=== PATIENT | female | born 1925 | race Caucasian/White ===

== ENCOUNTER 2017-03-14 11:46 | Emergency (ER) | payer MEDICARE, OTHER ==
[~2017-03-14] VITALS: Ht 162.6 cm; Wt 88.5 kg
[~2017-03-14 11:46] MED LIST: ALPR0.5T PO; ASPI-630 PO; AZIT250T PO; CARV6.25 PO; CLOP75TA57 PO; FLUT1DIS3 IH; IPRA4AER IH; LISI-334 PO; LISI40TA PO; PARO40TA3 PO; SIMV20TA3 PO
[2017-03-14] MEDS ORDERED: ONDANSETRON PF 4 MG/2 ML VIAL. IV ONE (12:15)
[2017-03-14 12:36] LABS: BASO # 0.1 x10^3/uL (0.0-0.2); BASO % 1 % (0-3); EOS % 1 % (0-3); HEMATOCRIT 41.6 % (36.0-47.0); HEMOGLOBIN 13.9 g/dL (12.0-15.5); LYMPH # 1.3 x10^3/uL (1.0-4.8); LYMPH % 18 % (24-48); MEAN CORPUSCULAR HEMOGLOBIN 33 pg (25-35); MEAN CORPUSCULAR HGB CONC 33 g/dL (31-37); MEAN CORPUSCULAR VOLUME 98 fL (79-100); MONO % 5 % (0-9); NEUT % 75 % (31-73); PLATELET COUNT 242 x10^3/uL (140-400); RED BLOOD COUNT 4.23 x10^6/uL (3.50-5.40); RED CELL DISTRIBUTION WIDTH 13.3 % (11.5-14.5); WHITE BLOOD COUNT 6.8 x10^3/uL (4.0-11.0)
[2017-03-14 13:06] LABS: BILIRUBIN,URINE NEGATIVE (NEG); GLUCOSE,URINE NEGATIVE (NEG); NITRITE,URINE NEGATIVE (NEG); PH,URINE 7.5; PROTEIN,URINE NEGATIVE (NEG-TRACE); UROBILINOGEN,URINE 0.2 mg/dL (0.2 mg/dL)
[2017-03-14 13:24] LABS: BACTERIA,URINE 0 /HPF (0-FEW); SQUAMOUS EPITHELIAL CELL,UR FEW /LPF; WBC,URINE 0 /HPF (0-4)
[2017-03-14 13:26] LABS: CALCIUM 9.2 mg/dL (8.5-10.1); CREATININE 0.7 mg/dL (0.6-1.0); GFR 78.8; POTASSIUM 3.7 mmol/L (3.5-5.1)
[2017-03-14 13:28] LABS: ALBUMIN 3.9 g/dL (3.4-5.0); ALBUMIN/GLOBULIN RATIO 1.1 (1.0-1.7); TOTAL BILIRUBIN 0.6 mg/dL (0.2-1.0); TOTAL PROTEIN 7.6 g/dL (6.4-8.2)
[2017-03-14 13:38] LABS: CKMB MASS 1.5 ng/mL (0.0-3.6); CREATINE KINASE 45 U/L (26-192)
--- NOTE | 2017-03-14 13:59 | RAD ---
CT study of the abdomen and pelvis without contrast Clinical indications: Nausea and vomiting since yesterday. Generalized abdominal pain. Technique: Noncontrast helical CT scanning of the abdomen and pelvis was performed. Without contrast, the sensitivity to detect organ pathology and GI tract pathology is decreased. PQRS Compliance Statement: One or more of the following individualized dose reduction techniques were utilized for this examination: 1. Automated exposure control 2. Adjustment of the mA and/or kV according to patient size 3. Use of iterative reconstruction technique Comparison: None available. Findings: The liver and spleen and pancreas are homogeneous in appearance on this noncontrast study. The gallbladder is surgically absent. No adrenal mass is evident. No hydronephrosis or hydroureter or urinary tract stone is seen. No focal aneurysmal dilatation of the abdominal aorta is seen. No enlarged abdominal or pelvic lymphadenopathy is seen. The appendix is not visualized. No obstructive bowel pattern is seen. Sigmoid diverticulosis is seen without diverticulitis. No mesenteric inflammatory change or free fluid or free air is seen. The uterus is surgically absent. Urinary bladder is not distended. There is a mild compression fracture of T11 of indeterminate age. No osteolytic process is seen. No lung base infiltrate is seen. IMPRESSION: No acute abnormality of the abdomen or pelvis is evident. Mild compression fracture of T11 of indeterminate age. Calcified atheromatous disease of the coronary arteries. Cardiomegaly.
[2017-03-14 14:30] VITALS: BP 182/89
[2017-03-14] MEDS ORDERED: ONDA4TAB10 PO (14:40)
--- NOTE | 2017-03-14 14:40 | PHYS DOC ---
Past Medical History Past Medical History: Anxiety, Arthritis, Bronchitis, COPD, Diabetes-Type II, High Cholesterol, Hypertension Past Surgical History: Cholecystectomy, Hysterectomy Alcohol Use: None Drug Use: None Adult General Chief Complaint Chief Complaint: DIZZY/LIGHT HEADED HPI HPI Patient is a 89 year old female brought to the ED by her daughter with the complaint of nausea and vomiting with dizziness. The symptoms began yesterday. She had some nausea and vomiting. Each time she vomits she will have a "hot sweat". She states when she vomits she becomes dizzy. It does not sound like she has vertigo which makes her vomit, it sounds like that she vomits and gets dizzy in a nonspecific way. Patient felt better this morning and ate some cereal but then she vomited it and has some more vomiting since. Patient stated she had a checkup within the last month with lead work and that was all fine. She feels like she might be constipated, has taken a laxative for that. No diarrhea. Denies abdominal pain, denies fever. No one else at home is sick. Patient lives with her daughter. Patient status past cholecystectomy, appendectomy, hysterectomy. Review of Systems Review of Systems Constitutional: Denies fever or chills [] Eyes: Denies change in visual acuity, redness, or eye pain [] HENT: Denies nasal congestion or sore throat [] Respiratory: Denies cough or shortness of breath [] Cardiovascular: Denies chest pain GI: As in history of present illness : No urinary complaints, but states she has been urinating a lot. Musculoskeletal: Denies back pain or joint pain [] Integument: Denies rash or skin lesions [] Neurologic: Denies headache, focal weakness or sensory changes [] Current Medications Current Medications Current Medications Medications (Trade) Dose Ordered Sig/Madeleine Start Time Stop Time Status Last Admin Dose Admin Ondansetron HCl (Zofran) 4 mg 1X ONCE 03/14/17 12:15 03/14/17 12:18 DC 03/14/17 12:31 4 MG Allergies Allergies Allergies Coded Allergies Type Severity Reaction Last Updated Verified sulfamethoxazole Allergy Intermediate VERTIGO 07/25/15 Yes trimethoprim Allergy Intermediate VERTIGO 07/25/15 Yes Physical Exam Physical Exam Constitutional: Well developed, well nourished, no acute distress, non-toxic appearance. Alert, mentating normally, warm and dry. HENT: Normocephalic, atraumatic, bilateral external ears normal, nose normal. [ ] Eyes: conjunctiva normal, no discharge. [] Neck: Normal range of motion, no stridor. [] Cardiovascular:Heart rate regular rhythm, no murmur [] Lungs & Thorax: Bilateral breath sounds clear to auscultation [] Abdomen: Soft, nondistended, no masses, no pulsatile mass, nontender to palpation Skin: Warm, dry, no erythema, no rash. [] Extremities: No tenderness, no cyanosis, no clubbing, ROM intact, no edema. [] Neurologic: Alert and oriented X 3, normal motor function, normal sensory function, no focal deficits noted. [] Current Patient Data Vital Signs Vital Signs Date Time Temp Pulse Resp B/P (MAP) Pulse Ox O2 Delivery O2 Flow Rate FiO2 03/14/17 14:30 82 182/89 (120) 92 Room Air 03/14/17 14:03 21 03/14/17 11:50 98.1 98.1 Lab Values Laboratory Tests Test 03/14/17 12:20 03/14/17 12:51 03/14/17 13:05 White Blood Count 6.8 x10^3/uL (4.0-11.0) Red Blood Count 4.23 x10^6/uL (3.50-5.40) Hemoglobin 13.9 g/dL (12.0-15.5) Hematocrit 41.6 % (36.0-47.0) Mean Corpuscular Volume 98 fL (79-100) Mean Corpuscular Hemoglobin 33 pg (25-35) Mean Corpuscular Hemoglobin Concent 33 g/dL (31-37) Red Cell Distribution Width 13.3 % (11.5-14.5) Platelet Count 242 x10^3/uL (140-400) Neutrophils (%) (Auto) 75 % (31-73) H Lymphocytes (%) (Auto) 18 % (24-48) L Monocytes (%) (Auto) 5 % (0-9) Eosinophils (%) (Auto) 1 % (0-3) Basophils (%) (Auto) 1 % (0-3) Neutrophils # (Auto) 5.1 x10^3uL (1.8-7.7) Lymphocytes # (Auto) 1.3 x10^3/uL (1.0-4.8) Monocytes # (Auto) 0.3 x10^3/uL (0.0-1.1) Eosinophils # (Auto) 0.1 x10^3/uL (0.0-0.7) Basophils # (Auto) 0.1 x10^3/uL (0.0-0.2) Troponin I Quantitative < 0.017 ng/mL (0.000-0.055) Urine Collection Type Unknown Urine Color Yellow Urine Clarity Clear Urine pH 7.5 Urine Specific [place] 1.010 Urine Protein Negative mg/dL (NEG-TRACE) Urine Glucose (UA) Negative mg/dL (NEG) Urine Ketones (Stick) Negative mg/dL (NEG) Urine Blood Trace (NEG) Urine Nitrite Negative (NEG) Urine Bilirubin Negative (NEG) Urine Urobilinogen Dipstick 0.2 mg/dL (0.2 mg/dL) Urine Leukocyte Esterase Negative (NEG) Urine RBC 6-10 /HPF (0-2) Urine WBC 0 /HPF (0-4) Urine Squamous Epithelial Cells Few /LPF Urine Amorphous Sediment Present /HPF Urine Bacteria 0 /HPF (0-FEW) Sodium Level 141 mmol/L (136-145) Potassium Level 3.7 mmol/L (3.5-5.1) Chloride Level 103 mmol/L (98-107) Carbon Dioxide Level 33 mmol/L (21-32) H Anion Gap 5 (6-14) L Blood Urea Nitrogen 17 mg/dL (7-20) Creatinine 0.7 mg/dL (0.6-1.0) Estimated GFR (Cockcroft-Gault) 78.8 BUN/Creatinine Ratio 24 (6-20) H Glucose Level 117 mg/dL (70-99) H Calcium Level 9.2 mg/dL (8.5-10.1) Total Bilirubin 0.6 mg/dL (0.2-1.0) Aspartate Amino Transferase (AST) 17 U/L (15-37) Alanine Aminotransferase (ALT) 20 U/L (14-59) Alkaline Phosphatase 89 U/L (46-116) Creatine Kinase 45 U/L (26-192) Creatine Kinase MB (Mass) 1.5 ng/mL (0.0-3.6) Creatine Kinase MB Relative Index % (0-4) Total Protein 7.6 g/dL (6.4-8.2) Albumin 3.9 g/dL (3.4-5.0) Albumin/Globulin Ratio 1.1 (1.0-1.7) Lipase 152 U/L (73-393) Laboratory Tests 03/14/17 12:20 Laboratory Tests 03/14/17 13:05 EKG EKG [] Radiology/Procedures Radiology/Procedures [] Course & Med Decision Making Course & Med Decision Making Pertinent Labs and Imaging studies reviewed. (See chart for details) 89-year-old female presents with some nausea and vomiting over the last couple of days. Her abdomen exam is benign. I advised her we will check some labs, give her some nausea medicine, check a CT scan. Patient rested comfortably in the ED. She did not have any further vomiting in the ED. Labs unrevealing, CT scan unremarkable. I discussed with the patient and her daughter their comfort level with discharge. I feel the patient is appropriate for discharge with some by mouth anti-medics and stomach rest with clear liquids for another day or 2. They're very comfortable with this plan. I encouraged her to return if she has worsening of symptoms. [] Dragon Disclaimer Dragon Disclaimer This electronic medical record was generated, in whole or in part, using a voice recognition dictation system. Departure Departure Impression: Primary Impression: Nausea and vomiting Disposition: 01 HOME, SELF-CARE Condition: STABLE Referrals: TIFFANIE DOYLE (PCP) Patient Instructions: Viral Gastroenteritis, [id number] Additional Instructions: As we discussed, there was no serious cause identified for your symptoms. It may be a stomach virus. Rest your stomach for the next couple of days with Jell- O and chicken noodle soup. If you get worse, return to ER right away. Scripts Ondansetron (ZOFRAN ODT) 4 Mg Tab.rapdis 4 MG PO Q6-8HRS Y for NAUSEA/VOMITING for 5 Days, #10 TAB Prov: RASHI CHERRY MD 03/14/17 RASHI CHERRY MD Mar 14, 2017 14:40
== END 2017-03-14 14:55 | disposition home or self-care (01) ==
LOC: ER 11:46
DX: R11.2 Nausea with vomiting, unspecified (principal); R42 Dizziness and giddiness; E11.9 Type 2 diabetes mellitus without complications; E78.00 Pure hypercholesterolemia, unspecified; F41.9 Anxiety disorder, unspecified; I10 Essential (primary) hypertension; J44.9 Chronic obstructive pulmonary disease, unspecified; M19.90 Unspecified osteoarthritis, unspecified site; Z90.49 Acquired absence of other specified parts of digestive tract; Z90.710 Acquired absence of both cervix and uterus; Z88.2 Allergy status to sulfonamides; Z88.8 Allergy status to other drugs, medicaments and biological substances
CPT/HCPCS: 36415; 74176; 80053; 81001; 82553; 83690; 84484; 85027; 96374; 99285; J2405

== ENCOUNTER 2017-05-20 13:39 | Inpatient (IN) | payer OTHER ==
[~2017-05-20] VITALS: Ht 162.6 cm; Wt 98.5 kg
[~2017-05-20 13:39] MED LIST changes: +AMLO10TA2 PO; +CHOL100013 PO; +FURO20TA3 PO; +ONDA4TAB10 PO; +POTASSIUM CHLO10 MEQ PO; +PRED-220 PO
--- NOTE | 2017-05-20 14:10 | EKG ---
[facility] [address] [place] [address] Test Date: 2017-05-20 Test Time: 13:45:29 Pat Name: RUSLAN MARCIAL Department: Room: Gender: F Assurance Officer: : 1925 Requested By: MONROE PIERCE Order Number: [id number] Reading MD: Torrie Suarez Measurements Intervals [place] Rate: 90 P: 15 ID: [id number] QRS: -22 QRSD: 98 T: 17 QT: 378 QTc: 467 Interpretive Statements SINUS RHYTHM LEFTWARD AXIS QRS(T) CONTOUR ABNORMALITY CONSISTENT WITH INFERIOR INFARCT PROBABLY OLD ABNORMAL ECG Electronically Signed On 05-24-2017 9:18:51 CDT by Torrie Suarez
[2017-05-20 14:25] LABS: BASO % 0 % (0-3); EOS % 0 % (0-3); HEMATOCRIT 44.1 % (36.0-47.0); HEMOGLOBIN 14.7 g/dL (12.0-15.5); LYMPH # 0.7 x10^3/uL (1.0-4.8); LYMPH % 7 % (24-48); MEAN CORPUSCULAR HEMOGLOBIN 33 pg (25-35); MEAN CORPUSCULAR HGB CONC 33 g/dL (31-37); MEAN CORPUSCULAR VOLUME 98 fL (79-100); MONO % 2 % (0-9); NEUT % 91 % (31-73); PLATELET COUNT 336 x10^3/uL (140-400); RED BLOOD COUNT 4.49 x10^6/uL (3.50-5.40); RED CELL DISTRIBUTION WIDTH 13.6 % (11.5-14.5); WHITE BLOOD COUNT 10.7 x10^3/uL (4.0-11.0)
[2017-05-20] MEDS ORDERED: ONDANSETRON PF 4 MG/2 ML VIAL. IV ONE (14:30)
[2017-05-20 14:37] LABS: BILIRUBIN,URINE NEGATIVE (NEG); GLUCOSE,URINE NEGATIVE (NEG); NITRITE,URINE NEGATIVE (NEG); PH,URINE 7.5; PROTEIN,URINE NEGATIVE (NEG-TRACE); UROBILINOGEN,URINE 0.2 mg/dL (0.2 mg/dL)
[2017-05-20] MEDS ORDERED: CONTRAST GIVEN MC PRN (14:45)
[2017-05-20] MEDS ORDERED: IOHEXOL 300 MG/ML 75 ML VIAL IV ONE (14:45)
[2017-05-20 14:48] LABS: BACTERIA,URINE FEW /HPF (0-FEW); RBC,URINE 0 /HPF (0-2); SQUAMOUS EPITHELIAL CELL,UR FEW /LPF; WBC,URINE 0 /HPF (0-4)
[2017-05-20] MEDS ORDERED: IOHEXOL 300 MG/ML 75 ML VIAL ONE (15:06)
[2017-05-20 15:25] LABS: CALCIUM 9.4 mg/dL (8.5-10.1); CREATININE 0.8 mg/dL (0.6-1.0); GFR 67.5; POTASSIUM 4.2 mmol/L (3.5-5.1)
[2017-05-20 15:31] LABS: ALBUMIN/GLOBULIN RATIO 1.1 (1.0-1.7); TOTAL BILIRUBIN 0.5 mg/dL (0.2-1.0); TOTAL PROTEIN 7.8 g/dL (6.4-8.2)
[2017-05-20] MEDS ORDERED: IV NORMAL SALINE 500ML BAG 500 ML IV ONE (15:45)
--- NOTE | 2017-05-20 15:47 | ED.ADGEN ---
Past Medical History Past Medical History: Anxiety, Arthritis, Bronchitis, COPD, Diabetes-Type II, High Cholesterol, Hypertension Past Surgical History: Cholecystectomy, Hysterectomy Alcohol Use: None Drug Use: None Adult General Chief Complaint Chief Complaint: NAUSEA/VOMITING/DIARRHA HPI HPI Patient is a 89 year old woman, history of type 2 diabetes mellitus, hypertension, hyperlipidemia, who presents to the emergency department with multiple complaints. Patient states that she been experiencing dry heaves this morning, along with some cramping abdominal pain, and was noted to have elevated blood pressures that" plummeted", when they're measured at home by her family, she is complaining of dizziness and lightheadedness as well. Denies any vomiting, states only "dry heaves", has been experiencing diarrhea, states that she was in the hospital last week with "similar things", was treated with Lasix previously, was taken off her Lasix. She states "my kidneys and my bowels". She denies any recent travel or surgery, states that she has had increased swelling of her feet, denies any syncope, states that she feels as though the room is "spinning around me", which is worse with motion but is present at rest as well. States that she is still feeling well this time. Patient has family at bedside. No chest pain, is complaining of her typical unchanged shortness of breath. Patient is a limited historian. Review of Systems Review of Systems Constitutional: Denies fever or chills. [] Eyes: Denies change in visual acuity. [] HENT: Denies nasal congestion or sore throat. [] Respiratory: Denies cough or shortness of breath. [] Cardiovascular: Denies chest pain or edema. [] GI: Complaining of cramping abdominal pain with dry heaves this morning, no vomiting, bloody stools, has been experiencing diarrhea. [] : Denies dysuria. [] Musculoskeletal: Denies back pain or joint pain. [] Integument: Denies rash. [] Neurologic: Denies headache, focal weakness or sensory changes. Complaining of lightheadedness and dizziness.[] Endocrine: Denies polyuria or polydipsia. [] Lymphatic: Denies swollen glands. [] Psychiatric: Denies depression or anxiety. [] Current Medications Current Medications Current Medications Medications (Trade) Dose Ordered Sig/Madeleine Start Time Stop Time Status Last Admin Dose Admin Acetaminophen (Tylenol) 650 mg PRN Q6HRS PRN 05/20/17 17:00 Al Hydroxide/Mg Hydroxide (Mylanta Plus Xs) 30 ml PRN Q3HRS PRN 05/20/17 17:00 Alprazolam (Xanax) 0.5 mg PRN Q8HRS PRN 05/20/17 17:00 Bisacodyl (Dulcolax Supp) 10 mg PRN DAILY PRN 05/20/17 17:00 Calcium Carbonate/ Glycine (Tums) 500 mg PRN Q3HRS PRN 05/20/17 17:00 Carvedilol (Coreg) 6.25 mg BIDWMEALS 05/20/17 17:00 Furosemide (Lasix) 20 mg PRN DAILY PRN 05/20/17 17:00 Ibuprofen (Motrin) 400 mg PRN Q6HRS PRN 05/20/17 17:00 Info (Do NOT chart on this entry -- for MONITORING) 1 each PRN DAILY PRN 05/20/17 14:45 05/22/17 14:44 Iohexol (Omnipaque 300 Mg/ml) 75 ml STK-MED ONCE 05/20/17 15:06 05/20/17 15:07 DC Ketorolac Tromethamine (Toradol) 15 mg PRN Q6HRS PRN 05/20/17 17:00 05/25/17 16:59 Lactulose 20 gm PRN Q12HR PRN 05/20/17 17:00 Magnesium Hydroxide (Milk Of Magnesia) 2,400 mg PRN Q12HR PRN 05/20/17 17:00 Morphine Sulfate 2 mg PRN Q2HR PRN 05/20/17 17:00 Non-Formulary Medication 2 inh QID 05/20/17 17:00 05/20/17 18:10 DC Ondansetron HCl (Zofran Odt) 4 mg PRN TID PRN 05/20/17 17:00 Ondansetron HCl (Zofran) 4 mg PRN Q6HRS PRN 05/20/17 17:00 Oxycodone HCl (Roxicodone) 5 mg PRN Q3HRS PRN 05/20/17 17:00 Prochlorperazine (Compazine) 25 mg PRN Q12HR PRN 05/20/17 17:00 Prochlorperazine Edisylate (Compazine) 10 mg PRN Q6HRS PRN 05/20/17 17:00 Sodium Chloride 500 ml @ 500 mls/hr 1X ONCE 05/20/17 15:45 05/20/17 16:44 DC 05/20/17 15:52 500 MLS/HR Zolpidem Tartrate (Ambien) 5 mg PRN QHS PRN 05/20/17 17:00 Allergies Allergies Allergies Coded Allergies Type Severity Reaction Last Updated Verified sulfamethoxazole Allergy Intermediate VERTIGO 07/25/15 Yes trimethoprim Allergy Intermediate VERTIGO 07/25/15 Yes Physical Exam Physical Exam Constitutional: Well developed, well nourished, no acute distress, non-toxic appearance. [] HENT: Normocephalic, atraumatic, bilateral external ears normal, oropharynx moist, no oral exudates, nose normal. [] Eyes: PERRLA, EOMI, conjunctiva normal, no discharge. [] Neck: Normal range of motion, no tenderness, supple, no stridor. [] Cardiovascular:Heart rate regular rhythm, no murmur, S1, S2, no rubs or gallops. Soft heart sounds. [] Lungs & Thorax: Bilateral breath sounds clear to auscultation, no wheezing, rhonchi, rales. No chest or crepitus or tenderness. Anybody to NELIDA destroyed my connection to the transfer line is both eyes did [] Abdomen: Bowel sounds normal, soft, tenderness to palpation throughout the abdomen with mild distention, no masses, no pulsatile masses. [] Skin: Warm, dry, no erythema, no rash. [] Back: No tenderness, no CVA tenderness. [] Extremities: No tenderness, no cyanosis, no clubbing, ROM intact, no edema. [] Neurologic: Alert and oriented X 3, normal motor function, normal sensory function, no focal deficits noted. [] Psychologic: Affect normal, judgement normal, mood normal. [] Current Patient Data Vital Signs Vital Signs Date Time Temp Pulse Resp B/P (MAP) Pulse Ox O2 Delivery O2 Flow Rate FiO2 05/20/17 13:40 98.7 93 18 135/72 (93) 96 Room Air 98.7 Lab Values Laboratory Tests Test 05/20/17 14:15 05/20/17 14:22 05/20/17 15:05 White Blood Count 10.7 x10^3/uL (4.0-11.0) Red Blood Count 4.49 x10^6/uL (3.50-5.40) Hemoglobin 14.7 g/dL (12.0-15.5) Hematocrit 44.1 % (36.0-47.0) Mean Corpuscular Volume 98 fL (79-100) Mean Corpuscular Hemoglobin 33 pg (25-35) Mean Corpuscular Hemoglobin Concent 33 g/dL (31-37) Red Cell Distribution Width 13.6 % (11.5-14.5) Platelet Count 336 x10^3/uL (140-400) Neutrophils (%) (Auto) 91 % (31-73) H Lymphocytes (%) (Auto) 7 % (24-48) L Monocytes (%) (Auto) 2 % (0-9) Eosinophils (%) (Auto) 0 % (0-3) Basophils (%) (Auto) 0 % (0-3) Neutrophils # (Auto) 9.7 x10^3uL (1.8-7.7) H Lymphocytes # (Auto) 0.7 x10^3/uL (1.0-4.8) L Monocytes # (Auto) 0.2 x10^3/uL (0.0-1.1) Eosinophils # (Auto) 0.0 x10^3/uL (0.0-0.7) Basophils # (Auto) 0.0 x10^3/uL (0.0-0.2) Segmented Neutrophils % 91 % (35-66) H Lymphocytes % 8 % (24-48) L Monocytes % 1 % (0-10) Platelet Estimate Adequate (ADEQUATE) Lactic Acid Level 2.8 mmol/L (0.4-2.0) H Urine Collection Type Void Urine Color Yellow Urine Clarity Clear Urine pH 7.5 Urine Specific [place] 1.010 Urine Protein Negative mg/dL (NEG-TRACE) Urine Glucose (UA) Negative mg/dL (NEG) Urine Ketones (Stick) Negative mg/dL (NEG) Urine Blood Negative (NEG) Urine Nitrite Negative (NEG) Urine Bilirubin Negative (NEG) Urine Urobilinogen Dipstick 0.2 mg/dL (0.2 mg/dL) Urine Leukocyte Esterase Negative (NEG) Urine RBC 0 /HPF (0-2) Urine WBC 0 /HPF (0-4) Urine Squamous Epithelial Cells Few /LPF Urine Bacteria Few /HPF (0-FEW) Urine Hyaline Casts Occasional /HPF Sodium Level 139 mmol/L (136-145) Potassium Level 4.2 mmol/L (3.5-5.1) Chloride Level 99 mmol/L (98-107) Carbon Dioxide Level 34 mmol/L (21-32) H Anion Gap 6 (6-14) Blood Urea Nitrogen 14 mg/dL (7-20) Creatinine 0.8 mg/dL (0.6-1.0) Estimated GFR (Cockcroft-Gault) 67.5 BUN/Creatinine Ratio 18 (6-20) Glucose Level 149 mg/dL (70-99) H Calcium Level 9.4 mg/dL (8.5-10.1) Total Bilirubin 0.5 mg/dL (0.2-1.0) Aspartate Amino Transferase (AST) 14 U/L (15-37) L Alanine Aminotransferase (ALT) 20 U/L (14-59) Alkaline Phosphatase 72 U/L (46-116) Troponin I Quantitative < 0.017 ng/mL (0.000-0.055) VI-Sha-C-Type Natriuretic Peptide 291 pg/mL (0-449) Total Protein 7.8 g/dL (6.4-8.2) Albumin 4.0 g/dL (3.4-5.0) Albumin/Globulin Ratio 1.1 (1.0-1.7) Lipase 138 U/L (73-393) Laboratory Tests 05/20/17 14:15 Laboratory Tests 05/20/17 15:05 EKG EKG EC: Sinus rhythm, heart rate 90 beats are minute, left axis deviation, QTC of 467, OH 158, QRS of 98, contour abnormalities in the inferior leads, abnormal ECG, does not meet STEMI criteria. As interpreted by me.[] Radiology/Procedures Radiology/Procedures [][facility] [address] [place], [place] [id number] IMAGING REPORT Signed PATIENT: RUSLAN MARCIAL ACCOUNT: [id number] : 1925 LOCATION: ER AGE: 89 SEX: F EXAM STATUS: REG ER ORD. PHYSICIAN: MONROE PIERCE DO REASON: Dizziness/Nausea PROCEDURE: CT HEAD WO CONTRAST Indication dizziness. Noncontrast images of the head were obtained. Note is made of a previous examination 07/27/2015. The study is slightly compromised by motion. No acute or significant calvarial finding is seen. The visualized paranasal sinuses appear grossly normal. There is no subdural or epidural hematoma. There is a lucency in the left thalamus similar to the previous exam likely reflecting an old insult. There is no hemorrhage. An acute finding is not seen. A significant change relative to the previous exam is not apparent. IMPRESSION: Chronic changes. No acute intracranial finding is seen. No significant change PQRS Compliance Statement: One or more of the following individualized dose reduction techniques were utilized for this examination: 1. Automated exposure control 2. Adjustment of the mA and/or kV according to patient size 3. Use of iterative reconstruction technique DICTATED and SIGNED BY: RICHARD JUAREZ MD DATE: 05/20/171615 CC: MONROE PIERCE DO; TIFFANIE DOYLE ~ Impressions: [facility] [address] [place], [place] [id number] IMAGING REPORT Signed PATIENT: RUSLAN MARCIAL ACCOUNT: [id number] : 1925 LOCATION: ER AGE: 89 SEX: F EXAM STATUS: REG ER ORD. PHYSICIAN: MONROE PIERCE DO REASON: abd pain PROCEDURE: CT ABD PELV W/ IV CONTRST ONLY CT of the abdomen and pelvis with contrast, 05/20/2017: History: Nausea, dizziness, diarrhea Multidetector CT imaging was performed following an IV bolus injection of iodinated contrast material. No oral contrast material was administered for this study. Comparison is made to a study from 03/14/2017. Moderate coronary artery calcifications are present. The gallbladder is surgically absent. No hepatic abnormality is seen. The common bile duct is mildly enlarged, compatible with the postcholecystectomy state. No pancreatic abnormality is detected. The spleen is of normal size. There is mild bilateral renal cortical scarring. A small cyst is noted in the upper pole the left kidney. The kidneys show no evidence of obstruction. There is moderate calcific plaquing of the aorta and its branches. No abdominal or pelvic adenopathy is seen. The uterus is surgically absent. A couple of small colonic diverticula are noted. There is no evidence of pericolic inflammation. The bowel loops are not dilated. No appendix is visualized. A small hiatal hernia is noted. No free fluid or free air is evident in the abdomen or pelvis. Moderate multilevel degenerative changes are present in the spine. There is a mild unchanged vertebral compression deformity at T11. IMPRESSION: 1. Miscellaneous chronic findings as described above. 2. No acute abdominal or pelvic abnormality is detected. PQRS Compliance Statement: One or more of the following individualized dose reduction techniques were utilized for this examination: 1. Automated exposure control 2. Adjustment of the mA and/or kV according to patient size 3. Use of iterative reconstruction technique DICTATED and SIGNED BY: TENZIN PRIETO MD DATE: 05/20/17 5689 CC: MONROE PIERCE DO; TIFFANIE DOYLE ~ Course & Med Decision Making Course & Med Decision Making Pertinent Labs and Imaging studies reviewed. (See chart for details) Patient with multiple, vague complaints. In sinus rhythm on the monitor, blood pressures between 150s to 170s over 70s. She is stating that she still feels as if the room is spinning around her. CT of the head did not reveal any findings, CT of abdomen and pelvis revealed chronic changes but no acute findings. However , patient's lactic was elevated at 2.8. Patient did receive IV fluids in the emergency department, I did review these findings with the patient, there is no source of infection, no evidence of obstruction or other source for the patient' s symptoms for a lactic acidosis, which will require further monitoring and evaluation, the patient is agreeable for admission to the hospital for continued monitoring and repeat laboratory studies. Findings as above discussed with Dr. Pepper of internal medicine, patient accepted to her service as a full admission to the medical telemetry floor, for continued monitoring and evaluation as stated. Patient remained stable and comfortable during her ED course, transfer to the floor without issue. Dragon Disclaimer Dragon Disclaimer This electronic medical record was generated, in whole or in part, using a voice recognition dictation system. Departure Impression: Primary Impression: Abdominal pain Additional Impressions: Lactic acidosis Dizziness Disposition: 09 ADMITTED INPATIENT Admitting Physician: Amina Pepper Condition: STABLE Problem Qualifiers MONROE PIERCE DO May 20, 2017 15:47
--- NOTE | 2017-05-20 16:22 | RAD ---
Indication dizziness. Noncontrast images of the head were obtained. Note is made of a previous examination 07/27/2015. The study is slightly compromised by motion. No acute or significant calvarial finding is seen. The visualized paranasal sinuses appear grossly normal. There is no subdural or epidural hematoma. There is a lucency in the left thalamus similar to the previous exam likely reflecting an old insult. There is no hemorrhage. An acute finding is not seen. A significant change relative to the previous exam is not apparent. IMPRESSION: Chronic changes. No acute intracranial finding is seen. No significant change PQRS Compliance Statement: One or more of the following individualized dose reduction techniques were utilized for this examination: 1. Automated exposure control 2. Adjustment of the mA and/or kV according to patient size 3. Use of iterative reconstruction technique
--- NOTE | 2017-05-20 16:36 | RAD ---
CT of the abdomen and pelvis with contrast, 05/20/2017: History: Nausea, dizziness, diarrhea Multidetector CT imaging was performed following an IV bolus injection of iodinated contrast material. No oral contrast material was administered for this study. Comparison is made to a study from 03/14/2017. Moderate coronary artery calcifications are present. The gallbladder is surgically absent. No hepatic abnormality is seen. The common bile duct is mildly enlarged, compatible with the postcholecystectomy state. No pancreatic abnormality is detected. The spleen is of normal size. There is mild bilateral renal cortical scarring. A small cyst is noted in the upper pole the left kidney. The kidneys show no evidence of obstruction. There is moderate calcific plaquing of the aorta and its branches. No abdominal or pelvic adenopathy is seen. The uterus is surgically absent. A couple of small colonic diverticula are noted. There is no evidence of pericolic inflammation. The bowel loops are not dilated. No appendix is visualized. A small hiatal hernia is noted. No free fluid or free air is evident in the abdomen or pelvis. Moderate multilevel degenerative changes are present in the spine. There is a mild unchanged vertebral compression deformity at T11. IMPRESSION: 1. Miscellaneous chronic findings as described above. 2. No acute abdominal or pelvic abnormality is detected. PQRS Compliance Statement: One or more of the following individualized dose reduction techniques were utilized for this examination: 1. Automated exposure control 2. Adjustment of the mA and/or kV according to patient size 3. Use of iterative reconstruction technique
[2017-05-20 16:47] LABS: PLT ESTIMATE ADEQUATE (ADEQUATE)
[2017-05-20] MEDS ORDERED: FUROSEMIDE 20 MG TABLET PO PRN (17:00)
[2017-05-20] MEDS ORDERED: PROCHLORPERAZINE 10 MG/2 ML VIAL. IV PRN (17:00)
[2017-05-20] MEDS ORDERED: ONDANSETRON ODT 4 MG TAB.RAPDIS. PO PRN (17:00)
[2017-05-20] MEDS ORDERED: NON FORMULARY ITEM (Ipratropium/Albuterol Sulfate (Combivent Respimat Inhal) 2 INH) IH SCH ×2 (17:00)
[2017-05-20] MEDS ORDERED: PROCHLORPERAZINE 25 MG SUPP.RECT. PR PRN (17:00)
[2017-05-20] MEDS ORDERED: MAG HYDROX/ALUMINUM HYD/SIMETH 30 ML ORAL.SUSP PO PRN (17:00)
[2017-05-20] MEDS ORDERED: BISACODYL 10 MG SUPP.RECT. PR PRN (17:00)
[2017-05-20] MEDS ORDERED: MORPHINE SULFATE 2 MG/ML DISP.SYRIN. IV PRN (17:00)
[2017-05-20] MEDS ORDERED: CALCIUM CARBONATE 500 MG TAB.CHEW PO PRN (17:00)
[2017-05-20] MEDS ORDERED: KETOROLAC 15 MG/ML VIAL. IV PRN (17:00)
[2017-05-20] MEDS ORDERED: LACTULOSE 20 GM/30 ML SOLUTION. PO PRN (17:00)
[2017-05-20] MEDS ORDERED: ACETAMINOPHEN 325 MG TABLET. PO PRN (17:00)
[2017-05-20] MEDS ORDERED: IBUPROFEN 400 MG TABLET. PO PRN (17:00)
[2017-05-20] MEDS ORDERED: MAGNESIUM HYDROXIDE 2,400 MG/30 ML ORAL.SUSP. PO PRN (17:00)
[2017-05-20] MEDS ORDERED: cloNIDine HCL 0.1 MG TABLET PO PRN (17:30)
--- NOTE | 2017-05-20 17:33 | PDOC1 ---
History and Physical Date of Admission Date of Admission DATE: 05/20/17 TIME: 17:22 Identification/Chief Complaint Chief Complaint nausea abd pain Problems: Source Source: Caregiver, Chart review, Patient History of Present Illness History of Present Illness 89 y,o female, lives at home with family and currently has HH arranged (we recommended that since she refused SNU last admit here which was 7 days ago) HH is working well for her She comes in with a gamut of complaints (As she did before) very non specific, but most striking is the dry heaving, recurrent nausea that she had also the last admit, LAst admit was may 10-2016 with the ff dx: 1. NAusea, emesis abd pain likely viral AGE - resolved 2. Hypoxic respi failure POA, transient, never smoker, hx COPD - (CXR benign) - resolved 3. Exposure to second hand smoke 4, HTN, CAD, CHF low EF in 2014, DM2, GERD, - all seems to be chronic stable Dtr and son also claims high BP and low BP, was initially high, she claims dizzy , happened 30 mins after retching/dry heaving, Recently started on norvasc 10 by her cards Oscar kruger,Dtr also claims BB metoprolol was also new. SBP now 155s systolic, no sxs,. Family claims her usual BP 1teens or 120s, Then upon EMS arrival low BP, 70-80s systolic, Labs only remarkable is mildly elevated lactate at 2 plus, REcent TSH is normal. On pred 10 chronic? I can check cortisol, definitely check orthostatics, GI soft diet to ADAT. And check GET, Non diabetic but BS without a meal 180s, Dm runs in family, she claims she is "borderline diabetic". Also this time get GI consult re recurrent nausea CTs can: IMPRESSION: 1. Miscellaneous chronic findings as described above. 2. No acute abdominal or pelvic abnormality is detected. Past Medical History Cardiovascular: CAD, HTN, Hyperlipidemia, Valve insufficiency, Other Pulmonary: Asthma, COPD, Other CENTRAL NERVOUS SYSTEM: TIA GI: No pertinent hx Heme/Onc: No pertinent hx Psych: Anxiety Musculoskeletal: Osteoarthritis, Other Rheumatologic: No pertinent hx Infectious disease: No pertinent hx Renal/: UTI, Other Endocrine: Diabetes, Hypothyroidism Past Surgical History Past Surgical History: Cholecystectomy, Cataract Removal, Hysterectomy Family History Family History: High Cholestrol, Hypertension Social History Smoke: No ALCOHOL: none Drugs: None Current Medications Current Medications Current Medications Ondansetron HCl (Zofran) 4 mg 1X ONCE IV Last administered on 05/20/17t 14:45; Start 05/20/17 at 14:30; Stop 05/20/17 at 14:31; Status DC Iohexol (Omnipaque 300 Mg/ml) 75 ml 1X ONCE IV ; Start 05/20/17 at 14:45; Stop 05/20/17 at 14:46; Status DC Info (Do NOT chart on this entry -- for MONITORING) 1 each PRN DAILY PRN MC SEE COMMENTS; Start 05/20/17 at 14:45; Stop 05/22/17 at 14:44 Iohexol (Omnipaque 300 Mg/ml) 75 ml STK-MED ONCE .ROUTE ; Start 05/20/17 at 15:06 ; Stop 05/20/17 at 15:07; Status DC Sodium Chloride 500 ml @ 500 mls/hr 1X ONCE IV Last administered on 05/20/17t 15:52; Start 05/20/17 at 15:45; Stop 05/20/17 at 16:44; Status DC Ondansetron HCl (Zofran) 4 mg PRN Q6HRS PRN IV NAUSEA/VOMITING; Start 05/20/17 at 17:00 Prochlorperazine Edisylate (Compazine) 10 mg PRN Q6HRS PRN IV NAUSEA/VOMITING; Start 05/20/17 at 17:00 Prochlorperazine (Compazine) 25 mg PRN Q12HR PRN PA NAUSEA/VOMITING; Start 05/20 at 17:00 Al Hydroxide/Mg Hydroxide (Mylanta Plus Xs) 30 ml PRN Q3HRS PRN PO HEARTBURN / GAS; Start 05/20/17 at 17:00 Calcium Carbonate/ Glycine (Tums) 500 mg PRN Q3HRS PRN PO UPSET STOMACH; Start 05/20/17 at 17:00 Zolpidem Tartrate (Ambien) 5 mg PRN QHS PRN PO INSOMNIA, MAY REPEAT IN 1HR; Start 05/20/17 at 17:00 Oxycodone HCl (Roxicodone) 5 mg PRN Q3HRS PRN PO BREAKTHROUGH PAIN; Start at 17:00 Morphine Sulfate 2 mg PRN Q2HR PRN IV PAIN; Start 05/20/17 at 17:00 Ketorolac Tromethamine (Toradol) 15 mg PRN Q6HRS PRN IV PAIN; Start 05/20/17 at 17:00; Stop 05/25/17 at 16:59 Acetaminophen (Tylenol) 650 mg PRN Q6HRS PRN PO Headaches, Temp > 101.5F; Start 05/20/17 at 17:00 Ibuprofen (Motrin) 400 mg PRN Q6HRS PRN PO MILD PAIN; Start 05/20/17 at 17:00 Docusate Sodium (Colace) 100 mg BID PO ; Start 05/20/17 at 21:00 Magnesium Hydroxide (Milk Of Magnesia) 2,400 mg PRN Q12HR PRN PO CONSTIPATION; Start 05/20/17 at 17:00 Lactulose 20 gm PRN Q12HR PRN PO CONSTIPATION; Start 05/20/17 at 17:00 Bisacodyl (Dulcolax Supp) 10 mg PRN DAILY PRN PA CONSTIPATION; Start 05/20/17 at 17:00 Enoxaparin Sodium (Lovenox 40mg Syringe) 40 mg Q24H SQ ; Start 05/20/17 at 21:00 Alprazolam (Xanax) 0.5 mg PRN Q8HRS PRN PO ANXIETY / AGITATION; Start 05/20/17 at 17:00 Amlodipine Besylate (Norvasc) 10 mg DAILY PO ; Start 05/21/17 at 09:00; Status UNV Aspirin (Children'S Aspirin) 81 mg DAILY PO ; Start 05/21/17 at 09:00 Carvedilol (Coreg) 6.25 mg BIDWMEALS PO ; Start 05/20/17 at 17:00; Status UNV Clopidogrel Bisulfate (Plavix) 75 mg DAILY PO ; Start 05/21/17 at 09:00 Furosemide (Lasix) 20 mg PRN DAILY PRN PO leg swelling; Start 05/20/17 at 17:00 Lisinopril (Prinivil) 20 mg BID PO ; Start 05/20/17 at 21:00 Ondansetron HCl (Zofran Odt) 4 mg PRN TID PRN PO NAUSEA/VOMITING; Start at 17:00 Prednisone (Prednisone) 10 mg DAILY PO ; Start 05/21/17 at 09:00 Simvastatin (Zocor) 20 mg QHS PO ; Start 05/20/17 at 21:00 Vitamin D (Vitamin D3) 1,000 unit DAILY PO ; Start 05/21/17 at 09:00 Non-Formulary Medication 1 inh BID IH ; Start 05/20/17 at 21:00; Status UNV Non-Formulary Medication 2 inh QID IH ; Start 05/20/17 at 17:00; Status UNV Non-Formulary Medication 2 inh QID IH ; Start 05/20/17 at 17:00; Status UNV Non-Formulary Medication 1 tab HS PO ; Start 05/20/17 at 21:00; Status UNV Potassium Chloride (Klor-Con) 10 meq DAILYWBKFT PO ; Start 05/21/17 at 08:00 Clonidine HCl (Catapres) 0.1 mg PRN Q1HR PRN PO 150/100; Start 05/20/17 at 17:30 ; Status UNV Sodium Chloride 1,000 ml @ 100 mls/hr 1X ONCE IV ; Start 05/20/17 at 17:30; Stop 05/21/17 at 03:29; Status UNV Active Scripts Active Prednisone 10 Mg Tablet 10 Mg PO UD Take 3 tablets by mouth daily for 2 days, then 2 tabs daily for 4 days, then 1 tab daily for 4 days Zofran Odt (Ondansetron) 4 Mg Tab.rapdis 4 Mg PO Q6-8HRS PRN 5 Days Reported Amlodipine Besylate 10 Mg Tablet 10 Mg PO DAILY Furosemide 20 Mg Tablet 1 Tab PO PRN PRN Vitamin D (Cholecalciferol (Vitamin D3)) 1,000 Unit Capsule 1 Cap PO DAILY Potassium Chloride 10 Meq Capsule.er 10 Meq PO DAILY Advair 250-50 Diskus (Fluticasone/Salmeterol) 1 Each Disk.w.dev 1 Inh IH BID Lisinopril 20 Mg Tablet 20 Mg PO BID Coreg (Carvedilol) 6.25 Mg Tablet 6.25 Mg PO BIDWMEALS Plavix (Clopidogrel Bisulfate) 75 Mg Tablet 75 Mg PO DAILY Xanax (Alprazolam) 0.5 Mg Tablet 0.5 Mg PO PRN Q8HRS PRN Aspirin 81 Mg Tab.chew 81 Mg PO DAILY Combivent Respimat Inhal (Ipratropium/Albuterol Sulfate) 4 Gm Aer.w.adap 2 Inh IH QID Combivent Respimat Inhal (Ipratropium/Albuterol Sulfate) 4 Gm Aer.w.adap 2 Inh IH QID Simvastatin 20 Mg Tablet 1 Tab PO QHS Paroxetine Hcl 40 Mg Tablet 1 Tab PO HS Allergies Allergies: Coded Allergies: sulfamethoxazole (Verified Allergy, Intermediate, VERTIGO, 07/25/15) trimethoprim (Verified Allergy, Intermediate, VERTIGO, 07/25/15) ROS Review of System as per HPI, abd pain, dry heaving, nausea Physical Exam General: Alert, Oriented X3, Cooperative, No acute distress HEENT: PERRLA Lungs: Clear to auscultation, Normal air movement Heart: S1S2, RRR, no thrills, no rubs, no gallops, no murmurs Cardiovascular: S1, S2 Breasts: Normal, Rt breast nml w/o mass, Lt breast nml w/o mass, Nipples normal Abdomen: Normal bowel sounds, Soft, No tenderness, No hepatosplenomegaly, No masses Rectal Exam: not examined PELVIC: Nml ext genitalia Extremities: No clubbing, No cyanosis, No edema, Normal pulses, No tenderness/ swelling Skin: No rashes, No breakdown, No significant lesion Neuro: Normal gait, Normal speech, Strength at 5/5 X4 ext, Normal tone, Sensation intact, Cranial nerves 3-12 NL, Reflexes 2+ Psych/Mental Status: Mental status NL, Mood NL Vitals Vitals Vital Signs Date Time Temp Pulse Resp B/P (MAP) Pulse Ox O2 Delivery O2 Flow Rate FiO2 05/20/17 13:40 98.7 93 18 135/72 (93) 96 Room Air 98.7 Labs Labs Laboratory Tests Test 05/20/17 14:15 05/20/17 14:22 05/20/17 15:05 White Blood Count 10.7 x10^3/uL (4.0-11.0) Red Blood Count 4.49 x10^6/uL (3.50-5.40) Hemoglobin 14.7 g/dL (12.0-15.5) Hematocrit 44.1 % (36.0-47.0) Mean Corpuscular Volume 98 fL (79-100) Mean Corpuscular Hemoglobin 33 pg (25-35) Mean Corpuscular Hemoglobin Concent 33 g/dL (31-37) Red Cell Distribution Width 13.6 % (11.5-14.5) Platelet Count 336 x10^3/uL (140-400) Neutrophils (%) (Auto) 91 % (31-73) Lymphocytes (%) (Auto) 7 % (24-48) Monocytes (%) (Auto) 2 % (0-9) Eosinophils (%) (Auto) 0 % (0-3) Basophils (%) (Auto) 0 % (0-3) Neutrophils # (Auto) 9.7 x10^3uL (1.8-7.7) Lymphocytes # (Auto) 0.7 x10^3/uL (1.0-4.8) Monocytes # (Auto) 0.2 x10^3/uL (0.0-1.1) Eosinophils # (Auto) 0.0 x10^3/uL (0.0-0.7) Basophils # (Auto) 0.0 x10^3/uL (0.0-0.2) Segmented Neutrophils % 91 % (35-66) Lymphocytes % 8 % (24-48) Monocytes % 1 % (0-10) Platelet Estimate Adequate (ADEQUATE) Lactic Acid Level 2.8 mmol/L (0.4-2.0) Urine Collection Type Void Urine Color Yellow Urine Clarity Clear Urine pH 7.5 Urine Specific [place] 1.010 Urine Protein Negative mg/dL (NEG-TRACE) Urine Glucose (UA) Negative mg/dL (NEG) Urine Ketones (Stick) Negative mg/dL (NEG) Urine Blood Negative (NEG) Urine Nitrite Negative (NEG) Urine Bilirubin Negative (NEG) Urine Urobilinogen Dipstick 0.2 mg/dL (0.2 mg/dL) Urine Leukocyte Esterase Negative (NEG) Urine RBC 0 /HPF (0-2) Urine WBC 0 /HPF (0-4) Urine Squamous Epithelial Cells Few /LPF Urine Bacteria Few /HPF (0-FEW) Urine Hyaline Casts Occasional /HPF Sodium Level 139 mmol/L (136-145) Potassium Level 4.2 mmol/L (3.5-5.1) Chloride Level 99 mmol/L (98-107) Carbon Dioxide Level 34 mmol/L (21-32) Anion Gap 6 (6-14) Blood Urea Nitrogen 14 mg/dL (7-20) Creatinine 0.8 mg/dL (0.6-1.0) Estimated GFR (Cockcroft-Gault) 67.5 BUN/Creatinine Ratio 18 (6-20) Glucose Level 149 mg/dL (70-99) Calcium Level 9.4 mg/dL (8.5-10.1) Total Bilirubin 0.5 mg/dL (0.2-1.0) Aspartate Amino Transf (AST/SGOT) 14 U/L (15-37) Alanine Aminotransferase (ALT/SGPT) 20 U/L (14-59) Alkaline Phosphatase 72 U/L (46-116) Troponin I Quantitative < 0.017 ng/mL (0.000-0.055) EO-Nde-T-Type Natriuretic Peptide 291 pg/mL (0-449) Total Protein 7.8 g/dL (6.4-8.2) Albumin 4.0 g/dL (3.4-5.0) Albumin/Globulin Ratio 1.1 (1.0-1.7) Lipase 138 U/L (73-393) Laboratory Tests Test 05/20/17 14:15 05/20/17 14:22 05/20/17 15:05 White Blood Count 10.7 x10^3/uL (4.0-11.0) Red Blood Count 4.49 x10^6/uL (3.50-5.40) Hemoglobin 14.7 g/dL (12.0-15.5) Hematocrit 44.1 % (36.0-47.0) Mean Corpuscular Volume 98 fL (79-100) Mean Corpuscular Hemoglobin 33 pg (25-35) Mean Corpuscular Hemoglobin Concent 33 g/dL (31-37) Red Cell Distribution Width 13.6 % (11.5-14.5) Platelet Count 336 x10^3/uL (140-400) Neutrophils (%) (Auto) 91 % (31-73) Lymphocytes (%) (Auto) 7 % (24-48) Monocytes (%) (Auto) 2 % (0-9) Eosinophils (%) (Auto) 0 % (0-3) Basophils (%) (Auto) 0 % (0-3) Neutrophils # (Auto) 9.7 x10^3uL (1.8-7.7) Lymphocytes # (Auto) 0.7 x10^3/uL (1.0-4.8) Monocytes # (Auto) 0.2 x10^3/uL (0.0-1.1) Eosinophils # (Auto) 0.0 x10^3/uL (0.0-0.7) Basophils # (Auto) 0.0 x10^3/uL (0.0-0.2) Segmented Neutrophils % 91 % (35-66) Lymphocytes % 8 % (24-48) Monocytes % 1 % (0-10) Platelet Estimate Adequate (ADEQUATE) Lactic Acid Level 2.8 mmol/L (0.4-2.0) Urine Collection Type Void Urine Color Yellow Urine Clarity Clear Urine pH 7.5 Urine Specific [place] 1.010 Urine Protein Negative mg/dL (NEG-TRACE) Urine Glucose (UA) Negative mg/dL (NEG) Urine Ketones (Stick) Negative mg/dL (NEG) Urine Blood Negative (NEG) Urine Nitrite Negative (NEG) Urine Bilirubin Negative (NEG) Urine Urobilinogen Dipstick 0.2 mg/dL (0.2 mg/dL) Urine Leukocyte Esterase Negative (NEG) Urine RBC 0 /HPF (0-2) Urine WBC 0 /HPF (0-4) Urine Squamous Epithelial Cells Few /LPF Urine Bacteria Few /HPF (0-FEW) Urine Hyaline Casts Occasional /HPF Sodium Level 139 mmol/L (136-145) Potassium Level 4.2 mmol/L (3.5-5.1) Chloride Level 99 mmol/L (98-107) Carbon Dioxide Level 34 mmol/L (21-32) Anion Gap 6 (6-14) Blood Urea Nitrogen 14 mg/dL (7-20) Creatinine 0.8 mg/dL (0.6-1.0) Estimated GFR (Cockcroft-Gault) 67.5 BUN/Creatinine Ratio 18 (6-20) Glucose Level 149 mg/dL (70-99) Calcium Level 9.4 mg/dL (8.5-10.1) Total Bilirubin 0.5 mg/dL (0.2-1.0) Aspartate Amino Transf (AST/SGOT) 14 U/L (15-37) Alanine Aminotransferase (ALT/SGPT) 20 U/L (14-59) Alkaline Phosphatase 72 U/L (46-116) Troponin I Quantitative < 0.017 ng/mL (0.000-0.055) IS-Sfa-N-Type Natriuretic Peptide 291 pg/mL (0-449) Total Protein 7.8 g/dL (6.4-8.2) Albumin 4.0 g/dL (3.4-5.0) Albumin/Globulin Ratio 1.1 (1.0-1.7) Lipase 138 U/L (73-393) VTE Prophylaxis Ordered VTE Prophylaxis Devices: Yes VTE Pharmacological Prophylaxi: Yes Assessment/Plan Assessment/Plan 1. Recurrent nausea, 2. Borderline diabetic per her report 3. Exposure to second hand smoke 4, HTN, CAD, CHF low EF in 2015, DM2, GERD, - all seems to be chronic stable 5. HTN with hypotension, transient, dizziness PLAn: Admit Resume home meds Check orthostatics - dizzy high and low BP Add prns Recheck lactate suzan after 1 L NS GI soft ten ADAt Check hgba1c (BS running borderline high) CTs can is neg for any acute abN - all miscellaneous findings Get GET NPO post MN for GET Ask Gi expertise Anti nausea meds PT/OT Will go back with current HH (she will be refusing SNu, does not need it by my assessment now) Seen at ER [facility] at ER JHOANA OSPINA MD May 20, 2017 17:33
[2017-05-20] MEDS ORDERED: IV NORMAL SALINE 1000ML BAG 1,000 ML IV ONE (18:00)
[2017-05-20 19:00] VITALS: BP 100/50
[2017-05-20] MEDS: CARVEDILOL 6.25 MG TABLET. PO SCH (19:38)
[2017-05-20] MEDS: oxyCODONE IR 5 MG TABLET PO PRN (19:44)
[2017-05-20] MEDS: IPRATRPIUM/ALBUTEROL 0.5/2.5MG 3 ML NEBU. NEB SCH (20:04)
[2017-05-20] MEDS: BUDESONIDE 0.5 MG/2 ML NEBU. NEB SCH (20:04)
[2017-05-20] MEDS ORDERED: PNEUMOCOCCAL VAX SCREEN BY RX. MC ONE (20:45)
[2017-05-20] MEDS: ENOXAPARIN 40 MG/0.4 ML SYRINGE. SQ SCH (21:00)
[2017-05-20] MEDS: PARoxetine 20 MG TABLET PO SCH (21:00)
[2017-05-20] MEDS ORDERED: NON FORMULARY ITEM (Fluticasone/Salmeterol (Advair 250-50 Diskus) 1 INH) IH SCH (21:00)
[2017-05-20] MEDS: DOCUSATE SODIUM 100 MG CAPSULE. PO SCH (21:00)
[2017-05-20] MEDS: LISINOPRIL 20 MG TABLET PO SCH (21:01)
[2017-05-20] MEDS: SIMVASTATIN 20 MG TABLET PO SCH (21:01)
[2017-05-20 23:00] VITALS: BP 95/53
[2017-05-21] VITALS (7 sets, daily range): BP systolic 95–156; BP diastolic 48–68
[2017-05-21] MEDS: BUDESONIDE 0.5 MG/2 ML NEBU. NEB SCH ×3 (08:00→19:50)
[2017-05-21] MEDS: IPRATRPIUM/ALBUTEROL 0.5/2.5MG 3 ML NEBU. NEB SCH ×4 (08:00→19:50)
--- NOTE | 2017-05-21 08:39 | PDOC2 ---
GI CONSULT Reason For Consult: Nausea HPI: HPI: 89 y/o female w/ a variety of complaints. First tells me about her 20-25 year history of diffuse abdominal, chest and left side tightness; this is unchanged. Also has a long h/o constipation; "I've never been regular." She takes a "natural capsule" (4 daily) + stool softeners and had a "good" BM over the weekend. Colonoscopy 15-20 years ago reportedly w/ benign polyps. Had a GES this morning (official report pending, T1/2 looks normal though) for nausea and retching. She says this happens when her blood pressure drops. It happened yesterday, she was home alone and upset her grandson wasn't there. Has been eating well, no weight loss. Occasional heartburn, untreated, no previous EGD. Vomits bile about once weekly. No NSAID use but on Plavix and ASA. S/p cholecystectomy. No liver or pancreas history. PMH: PMH: CAD, HTN, HLD, valve insufficiency, COPD, TIA, anxiety, OA, UTI, DM, hypothyroidism, cholecystectomy, hysterectomy, cataract removal FH: Family History: No pertinent hx Social History: Smoke: No ALCOHOL: rare Drugs: None ROS: GEN: Denies fevers, chills, sweats HEENT: Denies blurred vision, sore throat CV: Denies chest pain RESP: Denies shortness of air, cough GI: Per HPI : Denies hematuria, dysuria ENDO: Denies weight changes NEURO: Denies confusion, dizziness MSK: Denies weakness, joint pain/swelling SKIN: Denies jaundice, pruritus Vitals: Vitals: Vital Signs Date Time Temp Pulse Resp B/P (MAP) Pulse Ox O2 Delivery O2 Flow Rate FiO2 05/21/17 07:00 97.7 64 18 156/68 (97) 93 Room Air 97.7 Labs: Labs: Laboratory Tests Test 05/20/17 14:15 05/20/17 14:22 05/20/17 15:05 05/21/17 04:35 White Blood Count 10.7 x10^3/uL (4.0-11.0) Red Blood Count 4.49 x10^6/uL (3.50-5.40) Hemoglobin 14.7 g/dL (12.0-15.5) Hematocrit 44.1 % (36.0-47.0) Mean Corpuscular Volume 98 fL (79-100) Mean Corpuscular Hemoglobin 33 pg (25-35) Mean Corpuscular Hemoglobin Concent 33 g/dL (31-37) Red Cell Distribution Width 13.6 % (11.5-14.5) Platelet Count 336 x10^3/uL (140-400) Neutrophils (%) (Auto) 91 % (31-73) Lymphocytes (%) (Auto) 7 % (24-48) Monocytes (%) (Auto) 2 % (0-9) Eosinophils (%) (Auto) 0 % (0-3) Basophils (%) (Auto) 0 % (0-3) Neutrophils # (Auto) 9.7 x10^3uL (1.8-7.7) Lymphocytes # (Auto) 0.7 x10^3/uL (1.0-4.8) Monocytes # (Auto) 0.2 x10^3/uL (0.0-1.1) Eosinophils # (Auto) 0.0 x10^3/uL (0.0-0.7) Basophils # (Auto) 0.0 x10^3/uL (0.0-0.2) Segmented Neutrophils % 91 % (35-66) Lymphocytes % 8 % (24-48) Monocytes % 1 % (0-10) Platelet Estimate Adequate (ADEQUATE) Hemoglobin A1c 5.7 % (4.8-5.6) Lactic Acid Level 2.8 mmol/L (0.4-2.0) 1.3 mmol/L (0.4-2.0) Urine Collection Type Void Urine Color Yellow Urine Clarity Clear Urine pH 7.5 Urine Specific [place] 1.010 Urine Protein Negative mg/dL (NEG-TRACE) Urine Glucose (UA) Negative mg/dL (NEG) Urine Ketones (Stick) Negative mg/dL (NEG) Urine Blood Negative (NEG) Urine Nitrite Negative (NEG) Urine Bilirubin Negative (NEG) Urine Urobilinogen Dipstick 0.2 mg/dL (0.2 mg/dL) Urine Leukocyte Esterase Negative (NEG) Urine RBC 0 /HPF (0-2) Urine WBC 0 /HPF (0-4) Urine Squamous Epithelial Cells Few /LPF Urine Bacteria Few /HPF (0-FEW) Urine Hyaline Casts Occasional /HPF Sodium Level 139 mmol/L (136-145) Potassium Level 4.2 mmol/L (3.5-5.1) Chloride Level 99 mmol/L (98-107) Carbon Dioxide Level 34 mmol/L (21-32) Anion Gap 6 (6-14) Blood Urea Nitrogen 14 mg/dL (7-20) Creatinine 0.8 mg/dL (0.6-1.0) Estimated GFR (Cockcroft-Gault) 67.5 BUN/Creatinine Ratio 18 (6-20) Glucose Level 149 mg/dL (70-99) Calcium Level 9.4 mg/dL (8.5-10.1) Total Bilirubin 0.5 mg/dL (0.2-1.0) Aspartate Amino Transf (AST/SGOT) 14 U/L (15-37) Alanine Aminotransferase (ALT/SGPT) 20 U/L (14-59) Alkaline Phosphatase 72 U/L (46-116) Troponin I Quantitative < 0.017 ng/mL (0.000-0.055) WM-Fqg-Y-Type Natriuretic Peptide 291 pg/mL (0-449) Total Protein 7.8 g/dL (6.4-8.2) Albumin 4.0 g/dL (3.4-5.0) Albumin/Globulin Ratio 1.1 (1.0-1.7) Lipase 138 U/L (73-393) Allergies: Coded Allergies: sulfamethoxazole (Verified Allergy, Intermediate, VERTIGO, 07/25/15) trimethoprim (Verified Allergy, Intermediate, VERTIGO, 07/25/15) Medications: Current Medications Medications (Trade) Dose Ordered Sig/Madeleine Route PRN Reason Start Time Stop Time Status Last Admin Dose Admin Ondansetron HCl (Zofran) 4 mg 1X ONCE IV 05/20/17 14:30 05/20/17 14:31 DC 05/20/17 14:45 Iohexol (Omnipaque 300 Mg/ml) 75 ml 1X ONCE IV 05/20/17 14:45 05/20/17 14:46 DC 05/20/17 16:11 Sodium Chloride 500 ml @ 500 mls/hr 1X ONCE IV 05/20/17 15:45 05/20/17 16:44 DC 05/20/17 15:52 Oxycodone HCl (Roxicodone) 5 mg PRN Q3HRS PRN PO BREAKTHROUGH PAIN 05/20/17 17:00 05/20/17 19:44 Docusate Sodium (Colace) 100 mg BID PO 05/20/17 21:00 05/20/17 21:00 Enoxaparin Sodium (Lovenox 40mg Syringe) 40 mg Q24H SQ 05/20/17 21:00 05/20/17 21:00 Carvedilol (Coreg) 6.25 mg BIDWMEALS PO 05/20/17 17:00 05/20/17 19:38 Lisinopril (Prinivil) 20 mg BID PO 05/20/17 21:00 05/20/17 21:01 Simvastatin (Zocor) 20 mg QHS PO 05/20/17 21:00 05/20/17 21:01 Paroxetine HCl (Paxil) 40 mg QHS PO 05/20/17 21:00 05/20/17 21:00 Sodium Chloride 1,000 ml @ 100 mls/hr 1X ONCE IV 05/20/17 18:00 05/21/17 04:00 DC 05/20/17 19:38 Budesonide (Pulmicort) 0.5 mg RTBID NEB 05/20/17 20:00 05/20/17 20:04 Albuterol/ Ipratropium (Duoneb) 3 ml RTQID NEB 05/20/17 20:00 05/20/17 20:04 Imaging: Imaging: CT A/P 05/20/17 Moderate coronary artery calcifications are present. The gallbladder is surgically absent. No hepatic abnormality is seen. The common bile duct is mildly enlarged, compatible with the postcholecystectomy state. No pancreatic abnormality is detected. The spleen is of normal size. There is mild bilateral renal cortical scarring. A small cyst is noted in the upper pole the left kidney. The kidneys show no evidence of obstruction. There is moderate calcific plaquing of the aorta and its branches. No abdominal or pelvic adenopathy is seen. The uterus is surgically absent. A couple of small colonic diverticula are noted. There is no evidence of pericolic inflammation. The bowel loops are not dilated. No appendix is visualized. A small hiatal hernia is noted. No free fluid or free air is evident in the abdomen or pelvis. Moderate multilevel degenerative changes are present in the spine. There is a mild unchanged vertebral compression deformity at T11. IMPRESSION: 1. Miscellaneous chronic findings as described above. 2. No acute abdominal or pelvic abnormality is detected. Head CT 05/20/17 IMPRESSION: Chronic changes. No acute intracranial finding is seen. No significant change GES 05/21/17 PENDING PE: GEN: NAD HEENT: Atraumatic, PERRL LUNGS: decreased anteriorly HEART: RRR ABD: NABS, soft, perhaps some distended, mild diffuse discomfort EXTREMITY: No edema SKIN: No rashes, no jaundice NEURO/PSYCH: A & O 3 A/P: A/P: Nausea/retching GERD -occasional heartburn, untreated Chronic abd pain Constipation CRC screen, h/o polyps -last colonoscopy 15-20 years ago HTN/hypotension -per primary -- Will review w/ Dr. Bedolla. Empiric PPI + Miralax. HELGA SPARKS May 21, 2017 08:38
[2017-05-21] MEDS ORDERED: amLODIPine BESYLATE 10 MG TABLET PO SCH (09:00)
[2017-05-21] MEDS ORDERED: predniSONE 10 MG TABLET PO SCH (09:00)
[2017-05-21] MEDS: DOCUSATE SODIUM 100 MG CAPSULE. PO SCH ×2 (09:00→20:37)
[2017-05-21] MEDS ORDERED: hydrALAZINE 20 MG/ML VIAL. IVP PRN (10:00)
[2017-05-21] MEDS ORDERED: MAGNESIUM HYDROXIDE 2,400 MG/30 ML ORAL.SUSP. PO PRN (10:00)
--- NOTE | 2017-05-21 10:09 | RAD ---
Radionuclide gastric emptying study, 05/21/2017: History: Nausea, diabetes The study was performed utilizing a solid test meal labeled with 2 mCi of technetium 99m sulfur colloid. The time to half emptying of the test meal from the patient's stomach was estimated at 60 minutes. This value is in the normal range. IMPRESSION: Normal gastric emptying time
[2017-05-21] MEDS: SENNOSIDES/DOCUSATE 8.6/50MG TABLET. PO SCH ×2 (11:00→20:36)
[2017-05-21] MEDS ORDERED: DOCUSATE SODIUM 100 MG CAPSULE. PO SCH (11:00)
[2017-05-21] MEDS: PANTOPRAZOLE 40 MG TABLET.DR. PO SCH (11:10)
[2017-05-21] MEDS: CLOPIDOGREL BISULFATE 75 MG TABLET PO SCH (11:11)
[2017-05-21] MEDS: ASPIRIN CHEWABLE 81 MG TABLET. PO SCH (11:12)
[2017-05-21] MEDS: LISINOPRIL 20 MG TABLET PO SCH ×2 (11:12→20:35)
[2017-05-21] MEDS: CHOLECALCIFEROL (VITAMIN D3) 1,000 UNIT TABLET PO SCH (11:12)
[2017-05-21] MEDS: CARVEDILOL 6.25 MG TABLET. PO SCH ×2 (11:13→16:56)
[2017-05-21] MEDS: POLYETHYLENE GLYCOL 3350 17 GM PACKET. PO SCH ×2 (11:13→20:36)
[2017-05-21] MEDS: POTASSIUM CHLORIDE 10 MEQ TABLET.ER. PO SCH (11:13)
--- NOTE | 2017-05-21 12:40 | PDOC ---
PROGRESS NOTES Chief Complaint Chief Complaint 1. Recurrent nausea, abd pain, not clear etiology, GERD? constipation? 2. Borderline diabetic per her report 3. Exposure to second hand smoke 4, HTN, CAD, CHF EF 40%, DM2, GERD , copd 5. HTN with hypotension, transient, dizziness chronic constipation plan: fu with GI, GES today, neg CT basically normal cont home meds, dc amlodipine, on coreg and lisinopril for HTN PTOT, recommend HH dvt, gi ppx stool softner dc prednisone History of Present Illness History of Present Illness ROS: no fever, chills, sob or chest pain no N/V today, cont diffuse moderate abd pain with tenderness, CT abd neg GES today Vitals Vitals Vital Signs Date Time Temp Pulse Resp B/P (MAP) Pulse Ox O2 Delivery O2 Flow Rate FiO2 05/21/17 11:13 67 114/48 05/21/17 11:00 96.1 18 90 Room Air 96.1 Physical Exam General: Alert, Oriented X3, Cooperative, No acute distress Heart: Regular rate, Normal S1 Lungs: Clear Abdomen: Normal bowel sounds, Soft, No hepatosplenomegaly, No masses, Other ( diffuse mild moderate) Extremities: No clubbing, No cyanosis, No edema, Normal pulses, No tenderness/ swelling Skin: No rashes, No breakdown, No significant lesion Labs LABS Laboratory Tests Test 05/20/17 14:15 05/20/17 14:22 05/20/17 15:05 05/21/17 04:35 White Blood Count 10.7 x10^3/uL (4.0-11.0) Red Blood Count 4.49 x10^6/uL (3.50-5.40) Hemoglobin 14.7 g/dL (12.0-15.5) Hematocrit 44.1 % (36.0-47.0) Mean Corpuscular Volume 98 fL (79-100) Mean Corpuscular Hemoglobin 33 pg (25-35) Mean Corpuscular Hemoglobin Concent 33 g/dL (31-37) Red Cell Distribution Width 13.6 % (11.5-14.5) Platelet Count 336 x10^3/uL (140-400) Neutrophils (%) (Auto) 91 % (31-73) Lymphocytes (%) (Auto) 7 % (24-48) Monocytes (%) (Auto) 2 % (0-9) Eosinophils (%) (Auto) 0 % (0-3) Basophils (%) (Auto) 0 % (0-3) Neutrophils # (Auto) 9.7 x10^3uL (1.8-7.7) Lymphocytes # (Auto) 0.7 x10^3/uL (1.0-4.8) Monocytes # (Auto) 0.2 x10^3/uL (0.0-1.1) Eosinophils # (Auto) 0.0 x10^3/uL (0.0-0.7) Basophils # (Auto) 0.0 x10^3/uL (0.0-0.2) Segmented Neutrophils % 91 % (35-66) Lymphocytes % 8 % (24-48) Monocytes % 1 % (0-10) Platelet Estimate Adequate (ADEQUATE) Hemoglobin A1c 5.7 % (4.8-5.6) Lactic Acid Level 2.8 mmol/L (0.4-2.0) 1.3 mmol/L (0.4-2.0) Urine Collection Type Void Urine Color Yellow Urine Clarity Clear Urine pH 7.5 Urine Specific Ralls 1.010 Urine Protein Negative mg/dL (NEG-TRACE) Urine Glucose (UA) Negative mg/dL (NEG) Urine Ketones (Stick) Negative mg/dL (NEG) Urine Blood Negative (NEG) Urine Nitrite Negative (NEG) Urine Bilirubin Negative (NEG) Urine Urobilinogen Dipstick 0.2 mg/dL (0.2 mg/dL) Urine Leukocyte Esterase Negative (NEG) Urine RBC 0 /HPF (0-2) Urine WBC 0 /HPF (0-4) Urine Squamous Epithelial Cells Few /LPF Urine Bacteria Few /HPF (0-FEW) Urine Hyaline Casts Occasional /HPF Sodium Level 139 mmol/L (136-145) Potassium Level 4.2 mmol/L (3.5-5.1) Chloride Level 99 mmol/L (98-107) Carbon Dioxide Level 34 mmol/L (21-32) Anion Gap 6 (6-14) Blood Urea Nitrogen 14 mg/dL (7-20) Creatinine 0.8 mg/dL (0.6-1.0) Estimated GFR (Cockcroft-Gault) 67.5 BUN/Creatinine Ratio 18 (6-20) Glucose Level 149 mg/dL (70-99) Calcium Level 9.4 mg/dL (8.5-10.1) Total Bilirubin 0.5 mg/dL (0.2-1.0) Aspartate Amino Transf (AST/SGOT) 14 U/L (15-37) Alanine Aminotransferase (ALT/SGPT) 20 U/L (14-59) Alkaline Phosphatase 72 U/L (46-116) Troponin I Quantitative < 0.017 ng/mL (0.000-0.055) OH-Pgu-Q-Type Natriuretic Peptide 291 pg/mL (0-449) Total Protein 7.8 g/dL (6.4-8.2) Albumin 4.0 g/dL (3.4-5.0) Albumin/Globulin Ratio 1.1 (1.0-1.7) Lipase 138 U/L (73-393) Assessment and Plan Assessmemt and Plan Problems Medical Problems: (1) Dizziness Status: Acute (2) Lactic acidosis Status: Acute Problems: Comment Review of Relevant I have reviewed the following items lasha (where applicable) has been applied. Labs Laboratory Tests Test 05/20/17 14:15 05/20/17 14:22 05/20/17 15:05 05/21/17 04:35 White Blood Count 10.7 x10^3/uL (4.0-11.0) Red Blood Count 4.49 x10^6/uL (3.50-5.40) Hemoglobin 14.7 g/dL (12.0-15.5) Hematocrit 44.1 % (36.0-47.0) Mean Corpuscular Volume 98 fL (79-100) Mean Corpuscular Hemoglobin 33 pg (25-35) Mean Corpuscular Hemoglobin Concent 33 g/dL (31-37) Red Cell Distribution Width 13.6 % (11.5-14.5) Platelet Count 336 x10^3/uL (140-400) Neutrophils (%) (Auto) 91 % (31-73) Lymphocytes (%) (Auto) 7 % (24-48) Monocytes (%) (Auto) 2 % (0-9) Eosinophils (%) (Auto) 0 % (0-3) Basophils (%) (Auto) 0 % (0-3) Neutrophils # (Auto) 9.7 x10^3uL (1.8-7.7) Lymphocytes # (Auto) 0.7 x10^3/uL (1.0-4.8) Monocytes # (Auto) 0.2 x10^3/uL (0.0-1.1) Eosinophils # (Auto) 0.0 x10^3/uL (0.0-0.7) Basophils # (Auto) 0.0 x10^3/uL (0.0-0.2) Segmented Neutrophils % 91 % (35-66) Lymphocytes % 8 % (24-48) Monocytes % 1 % (0-10) Platelet Estimate Adequate (ADEQUATE) Hemoglobin A1c 5.7 % (4.8-5.6) Lactic Acid Level 2.8 mmol/L (0.4-2.0) 1.3 mmol/L (0.4-2.0) Urine Collection Type Void Urine Color Yellow Urine Clarity Clear Urine pH 7.5 Urine Specific Ralls 1.010 Urine Protein Negative mg/dL (NEG-TRACE) Urine Glucose (UA) Negative mg/dL (NEG) Urine Ketones (Stick) Negative mg/dL (NEG) Urine Blood Negative (NEG) Urine Nitrite Negative (NEG) Urine Bilirubin Negative (NEG) Urine Urobilinogen Dipstick 0.2 mg/dL (0.2 mg/dL) Urine Leukocyte Esterase Negative (NEG) Urine RBC 0 /HPF (0-2) Urine WBC 0 /HPF (0-4) Urine Squamous Epithelial Cells Few /LPF Urine Bacteria Few /HPF (0-FEW) Urine Hyaline Casts Occasional /HPF Sodium Level 139 mmol/L (136-145) Potassium Level 4.2 mmol/L (3.5-5.1) Chloride Level 99 mmol/L (98-107) Carbon Dioxide Level 34 mmol/L (21-32) Anion Gap 6 (6-14) Blood Urea Nitrogen 14 mg/dL (7-20) Creatinine 0.8 mg/dL (0.6-1.0) Estimated GFR (Cockcroft-Gault) 67.5 BUN/Creatinine Ratio 18 (6-20) Glucose Level 149 mg/dL (70-99) Calcium Level 9.4 mg/dL (8.5-10.1) Total Bilirubin 0.5 mg/dL (0.2-1.0) Aspartate Amino Transf (AST/SGOT) 14 U/L (15-37) Alanine Aminotransferase (ALT/SGPT) 20 U/L (14-59) Alkaline Phosphatase 72 U/L (46-116) Troponin I Quantitative < 0.017 ng/mL (0.000-0.055) WH-Xuf-H-Type Natriuretic Peptide 291 pg/mL (0-449) Total Protein 7.8 g/dL (6.4-8.2) Albumin 4.0 g/dL (3.4-5.0) Albumin/Globulin Ratio 1.1 (1.0-1.7) Lipase 138 U/L (73-393) Laboratory Tests Test 05/20/17 14:15 05/20/17 14:22 05/20/17 15:05 05/21/17 04:35 White Blood Count 10.7 x10^3/uL (4.0-11.0) Red Blood Count 4.49 x10^6/uL (3.50-5.40) Hemoglobin 14.7 g/dL (12.0-15.5) Hematocrit 44.1 % (36.0-47.0) Mean Corpuscular Volume 98 fL (79-100) Mean Corpuscular Hemoglobin 33 pg (25-35) Mean Corpuscular Hemoglobin Concent 33 g/dL (31-37) Red Cell Distribution Width 13.6 % (11.5-14.5) Platelet Count 336 x10^3/uL (140-400) Neutrophils (%) (Auto) 91 % (31-73) Lymphocytes (%) (Auto) 7 % (24-48) Monocytes (%) (Auto) 2 % (0-9) Eosinophils (%) (Auto) 0 % (0-3) Basophils (%) (Auto) 0 % (0-3) Neutrophils # (Auto) 9.7 x10^3uL (1.8-7.7) Lymphocytes # (Auto) 0.7 x10^3/uL (1.0-4.8) Monocytes # (Auto) 0.2 x10^3/uL (0.0-1.1) Eosinophils # (Auto) 0.0 x10^3/uL (0.0-0.7) Basophils # (Auto) 0.0 x10^3/uL (0.0-0.2) Segmented Neutrophils % 91 % (35-66) Lymphocytes % 8 % (24-48) Monocytes % 1 % (0-10) Platelet Estimate Adequate (ADEQUATE) Hemoglobin A1c 5.7 % (4.8-5.6) Lactic Acid Level 2.8 mmol/L (0.4-2.0) 1.3 mmol/L (0.4-2.0) Urine Collection Type Void Urine Color Yellow Urine Clarity Clear Urine pH 7.5 Urine Specific Ralls 1.010 Urine Protein Negative mg/dL (NEG-TRACE) Urine Glucose (UA) Negative mg/dL (NEG) Urine Ketones (Stick) Negative mg/dL (NEG) Urine Blood Negative (NEG) Urine Nitrite Negative (NEG) Urine Bilirubin Negative (NEG) Urine Urobilinogen Dipstick 0.2 mg/dL (0.2 mg/dL) Urine Leukocyte Esterase Negative (NEG) Urine RBC 0 /HPF (0-2) Urine WBC 0 /HPF (0-4) Urine Squamous Epithelial Cells Few /LPF Urine Bacteria Few /HPF (0-FEW) Urine Hyaline Casts Occasional /HPF Sodium Level 139 mmol/L (136-145) Potassium Level 4.2 mmol/L (3.5-5.1) Chloride Level 99 mmol/L (98-107) Carbon Dioxide Level 34 mmol/L (21-32) Anion Gap 6 (6-14) Blood Urea Nitrogen 14 mg/dL (7-20) Creatinine 0.8 mg/dL (0.6-1.0) Estimated GFR (Cockcroft-Gault) 67.5 BUN/Creatinine Ratio 18 (6-20) Glucose Level 149 mg/dL (70-99) Calcium Level 9.4 mg/dL (8.5-10.1) Total Bilirubin 0.5 mg/dL (0.2-1.0) Aspartate Amino Transf (AST/SGOT) 14 U/L (15-37) Alanine Aminotransferase (ALT/SGPT) 20 U/L (14-59) Alkaline Phosphatase 72 U/L (46-116) Troponin I Quantitative < 0.017 ng/mL (0.000-0.055) GV-Swb-V-Type Natriuretic Peptide 291 pg/mL (0-449) Total Protein 7.8 g/dL (6.4-8.2) Albumin 4.0 g/dL (3.4-5.0) Albumin/Globulin Ratio 1.1 (1.0-1.7) Lipase 138 U/L (73-393) Medications Current Medications Ondansetron HCl (Zofran) 4 mg 1X ONCE IV Last administered on 05/20/17 14:45; Start 05/20/17 at 14:30; Stop 05/20/17 at 14:31; Status DC Iohexol (Omnipaque 300 Mg/ml) 75 ml 1X ONCE IV Last administered on 05/20/17 16:11; Start 05/20/17 at 14:45; Stop 05/20/17 at 14:46; Status DC Info (Do NOT chart on this entry -- for MONITORING) 1 each PRN DAILY PRN MC SEE COMMENTS; Start 05/20/17 at 14:45; Stop 05/22/17 at 14:44 Iohexol (Omnipaque 300 Mg/ml) 75 ml STK-MED ONCE .ROUTE ; Start 05/20/17 at 15:06 ; Stop 05/20/17 at 15:07; Status DC Sodium Chloride 500 ml @ 500 mls/hr 1X ONCE IV Last administered on 05/20/17 15:52; Start 05/20/17 at 15:45; Stop 05/20/17 at 16:44; Status DC Ondansetron HCl (Zofran) 4 mg PRN Q6HRS PRN IV NAUSEA/VOMITING; Start 05/20/17 at 17:00 Prochlorperazine Edisylate (Compazine) 10 mg PRN Q6HRS PRN IV NAUSEA/VOMITING; Start 05/20/17 at 17:00 Prochlorperazine (Compazine) 25 mg PRN Q12HR PRN MO NAUSEA/VOMITING; Start 05/20 at 17:00 Al Hydroxide/Mg Hydroxide (Mylanta Plus Xs) 30 ml PRN Q3HRS PRN PO HEARTBURN / GAS; Start 05/20/17 at 17:00 Calcium Carbonate/ Glycine (Tums) 500 mg PRN Q3HRS PRN PO UPSET STOMACH; Start 05/20/17 at 17:00 Zolpidem Tartrate (Ambien) 5 mg PRN QHS PRN PO INSOMNIA, MAY REPEAT IN 1HR; Start 05/20/17 at 17:00 Oxycodone HCl (Roxicodone) 5 mg PRN Q3HRS PRN PO BREAKTHROUGH PAIN Last administered on 05/20/17 19:44; Start 05/20/17 at 17:00 Morphine Sulfate 2 mg PRN Q2HR PRN IV PAIN; Start 05/20/17 at 17:00 Ketorolac Tromethamine (Toradol) 15 mg PRN Q6HRS PRN IV PAIN; Start 05/20/17 at 17:00; Stop 05/25/17 at 16:59 Acetaminophen (Tylenol) 650 mg PRN Q6HRS PRN PO Headaches, Temp > 101.5F; Start 05/20/17 at 17:00 Ibuprofen (Motrin) 400 mg PRN Q6HRS PRN PO MILD PAIN; Start 05/20/17 at 17:00; Stop 05/21/17 at 09:59; Status DC Docusate Sodium (Colace) 100 mg BID PO Last administered on 05/20/17 21:00; Start 05/20/17 at 21:00 Magnesium Hydroxide (Milk Of Magnesia) 2,400 mg PRN Q12HR PRN PO CONSTIPATION; Start 05/20/17 at 17:00 Lactulose 20 gm PRN Q12HR PRN PO CONSTIPATION; Start 05/20/17 at 17:00 Bisacodyl (Dulcolax Supp) 10 mg PRN DAILY PRN MO CONSTIPATION; Start 05/20/17 at 17:00 Enoxaparin Sodium (Lovenox 40mg Syringe) 40 mg Q24H SQ Last administered on 05/20 21:00; Start 05/20/17 at 21:00 Alprazolam (Xanax) 0.5 mg PRN Q8HRS PRN PO ANXIETY / AGITATION; Start 05/20/17 at 17:00 Amlodipine Besylate (Norvasc) 10 mg DAILY PO Last administered on 05/21/17 11: 11; Start 05/21/17 at 09:00 Aspirin (Children'S Aspirin) 81 mg DAILY PO Last administered on 05/21/17 11:12 ; Start 05/21/17 at 09:00 Carvedilol (Coreg) 6.25 mg BIDWMEALS PO Last administered on 05/21/17 11:13; Start 05/20/17 at 17:00 Clopidogrel Bisulfate (Plavix) 75 mg DAILY PO Last administered on 05/21/17 11: 11; Start 05/21/17 at 09:00 Furosemide (Lasix) 20 mg PRN DAILY PRN PO leg swelling; Start 05/20/17 at 17:00 Lisinopril (Prinivil) 20 mg BID PO Last administered on 05/21/17 11:12; Start 05/20/17 at 21:00 Ondansetron HCl (Zofran Odt) 4 mg PRN TID PRN PO NAUSEA/VOMITING; Start at 17:00 Prednisone (Prednisone) 10 mg DAILY PO ; Start 05/21/17 at 09:00; Stop 05/21/17 at 09:59; Status DC Simvastatin (Zocor) 20 mg QHS PO Last administered on 05/20/17 21:01; Start 05/20/17 at 21:00 Vitamin D (Vitamin D3) 1,000 unit DAILY PO Last administered on 05/21/17 11:12 ; Start 05/21/17 at 09:00 Non-Formulary Medication 1 inh BID IH ; Start 05/20/17 at 21:00; Stop 05/20/17 at 21:00; Status DC Non-Formulary Medication 2 inh QID IH ; Start 05/20/17 at 17:00; Stop 05/20/17 at 18:26; Status DC Non-Formulary Medication 2 inh QID IH ; Start 05/20/17 at 17:00; Stop 05/20/17 at 18:10; Status DC Paroxetine HCl (Paxil) 40 mg QHS PO Last administered on 05/20/17 21:00; Start 05/20/17 at 21:00 Potassium Chloride (Klor-Con) 10 meq [id number] PO Last administered on 11:13; Start 05/21/17 at 08:00 Clonidine HCl (Catapres) 0.1 mg PRN Q1HR PRN PO 150/100; Start 05/20/17 at 17:30 ; Stop 05/21/17 at 09:59; Status DC Sodium Chloride 1,000 ml @ 100 mls/hr 1X ONCE IV Last administered on 19:38; Start 05/20/17 at 18:00; Stop 05/21/17 at 04:00; Status DC Budesonide (Pulmicort) 0.5 mg RTBID NEB Last administered on 05/21/17 10:54; Start 05/20/17 at 20:00 Albuterol/ Ipratropium (Duoneb) 3 ml RTQID NEB Last administered on 05/21/17 10 :54; Start 05/20/17 at 20:00 Pneumococcal Polyvalent Vaccine (Do NOT chart on this placeholder) 1 each 1X ONCE MC ; Start 05/20/17 at 20:45; Stop 05/20/17 at 20:46; Status UNV Polyethylene Glycol (miraLAX PACKET) 17 gm BID PO Last administered on 11:13; Start 05/21/17 at 11:00 Pantoprazole Sodium (Protonix) 40 mg DAILYAC PO Last administered on 05/21/17 11:10; Start 05/21/17 at 11:30 Senna/Docusate Sodium (Senna Plus) 1 tab BID PO Last administered on 05/21/17 11:00; Start 05/21/17 at 11:00 Docusate Sodium (Colace) 100 mg BID PO Last administered on 05/21/17 11:12; Start 05/21/17 at 11:00 Magnesium Hydroxide (Milk Of Magnesia) 2,400 mg PRN Q12HR PRN PO CONSTIPATION; Start 05/21/17 at 10:00 Hydralazine HCl (Apresoline) 10 mg PRN Q4HRS PRN IVP ELEVATED BP, SEE COMMENTS ; Start 05/21/17 at 10:00 Active Scripts Active Prednisone 10 Mg Tablet 10 Mg PO UD Take 3 tablets by mouth daily for 2 days, then 2 tabs daily for 4 days, then 1 tab daily for 4 days Zofran Odt (Ondansetron) 4 Mg Tab.rapdis 4 Mg PO Q6-8HRS PRN 5 Days Reported Amlodipine Besylate 10 Mg Tablet 10 Mg PO DAILY Furosemide 20 Mg Tablet 1 Tab PO PRN PRN Vitamin D (Cholecalciferol (Vitamin D3)) 1,000 Unit Capsule 1 Cap PO DAILY Potassium Chloride 10 Meq Capsule.er 10 Meq PO DAILY Advair 250-50 Diskus (Fluticasone/Salmeterol) 1 Each Disk.w.dev 1 Inh IH BID Lisinopril 20 Mg Tablet 20 Mg PO BID Coreg (Carvedilol) 6.25 Mg Tablet 6.25 Mg PO BIDWMEALS Plavix (Clopidogrel Bisulfate) 75 Mg Tablet 75 Mg PO DAILY Xanax (Alprazolam) 0.5 Mg Tablet 0.5 Mg PO PRN Q8HRS PRN Aspirin 81 Mg Tab.chew 81 Mg PO DAILY Combivent Respimat Inhal (Ipratropium/Albuterol Sulfate) 4 Gm Aer.w.adap 2 Inh IH QID Combivent Respimat Inhal (Ipratropium/Albuterol Sulfate) 4 Gm Aer.w.adap 2 Inh IH QID Simvastatin 20 Mg Tablet 1 Tab PO QHS Paroxetine Hcl 40 Mg Tablet 1 Tab PO HS Vitals/I & O Vital Sign - Last 24 Hours 05/20/17 05/20/17 05/20/17 05/20/17 13:40 14:00 15:00 15:30 Temp 98.7 98.7 Pulse 93 88 86 88 Resp 18 27 30 24 B/P (MAP) 135/72 (93) 138/64 (88) 108/67 (81) 121/63 (82) Pulse Ox 96 95 95 96 O2 Delivery Room Air Room Air Room Air Room Air 05/20/17 05/20/17 05/20/17 05/20/17 17:00 17:30 18:00 19:00 Temp 97.8 97.8 Pulse 88 96 92 91 Resp 24 23 19 18 B/P (MAP) 155/72 (99) 141/69 (93) 151/72 (98) 100/50 (67) Pulse Ox 94 95 92 96 O2 Delivery Room Air Room Air Room Air Room Air 05/20/17 05/20/17 05/20/17 05/20/17 19:30 19:38 19:44 20:08 Pulse 92 Resp 18 B/P (MAP) 151/72 Pulse Ox 92 97 O2 Delivery Room Air Room Air Room Air 05/20/17 05/20/17 05/20/17 05/21/17 20:41 21:01 23:00 03:00 Temp 98.1 97.9 98.1 97.9 Pulse 91 73 66 Resp 18 21 19 B/P (MAP) 100/72 95/53 (67) 104/62 (76) Pulse Ox 97 95 97 O2 Delivery Room Air Room Air Room Air 9/605/21/17 05/21/17 05/21/17 07:00 08:15 10:55 11:00 Temp 97.7 96.1 97.7 96.1 Pulse 64 67 Resp 18 18 B/P (MAP) 156/68 (97) 116/48 (70) Pulse Ox 93 91 90 O2 Delivery Room Air Room Air Room Air Room Air 05/21/17 05/21/17 05/21/17 11:11 11:12 11:13 Pulse 67 67 67 B/P (MAP) 116/48 116/48 114/48 JOANNA SEXTON MD May 21, 2017 12:40
--- NOTE | 2017-05-21 15:36 | PDOC2 ---
CARDIAC CONSULT DATE OF CONSULT Date of Consult DATE: 05/21/17 TIME: 14:41 REASON FOR CONSULT Reason for Consult: recurrent nausea, possible RCA disease REFERRING PHYSICIAN Referring Physician: Zo SOURCE Source: Chart review, Patient HISTORY OF PRESENT ILLNESS HISTORY OF PRESENT ILLNESS This is a pleasant 89 yo female admitted for complains of nausea and BP issues. Reports that she was at dinner with her family Friday when she started feeling nauseated, no vomiting, and not feeling good. This finally faded away but recurred again. She also has been having intermittent diarrhea too but likely from daily use of laxatives. Her nausea has been intermittent in the last 3 weeks and actually was noted with this from her recent hospitalization. Also she was told by her granddaughter that her BP was high then it drops down significantly. She has not passed out or has been having frequent dizziness. Denies any palpitations. She does have SOA but this is no different from her baseline with her COPD. Also she has been having spastic CP to her left lateral ribcage area and telling that this is not gas related. She has been taking her cardiac medications regularly. She has been evaluated by GI and ruled no significant or new anomaly contributing to her persistent nausea. Upon admission as well she was noted with PAST MEDICAL HISTORY Past Medical History Cardiovascular: CAD, HTN, Hyperlipidemia, Valve insufficiency (Mod MR/TR), Other (Cardiomyopathy) Pulmonary: Asthma, COPD, Other (Severe pulmonary HTN) CENTRAL NERVOUS SYSTEM: TIA GI: No pertinent hx Heme/Onc: No pertinent hx Psych: Anxiety Musculoskeletal: Osteoarthritis, Other (Vit D deficiency) Rheumatologic: No pertinent hx Infectious disease: No pertinent hx ENT: Allergic Rhinitis Renal/: UTI, Other (hematuria) Endocrine: Diabetes, Hypothyroidism Dermatology: No pertinent hx PAST SURGICAL HISTORY Past Surgical History Cholecystectomy, Cataract Removal, Hysterectomy, PCI/BMS to RCA 07/2015 FAMILY HISTORY Family History noncontributory SOCIAL HISTORY Smoke: No ALCOHOL: none Drugs: None Lives: with Family CURRENT MEDICATIONS CURRENT MEDICATIONS Current Medications Medications (Trade) Dose Ordered Sig/Madeleine Route PRN Reason Start Time Stop Time Status Last Admin Dose Admin Iohexol (Omnipaque 300 Mg/ml) 75 ml 1X ONCE IV 05/20/17 14:45 05/20/17 14:46 DC 05/20/17 16:11 Sodium Chloride 500 ml @ 500 mls/hr 1X ONCE IV 05/20/17 15:45 05/20/17 16:44 DC 05/20/17 15:52 Oxycodone HCl (Roxicodone) 5 mg PRN Q3HRS PRN PO BREAKTHROUGH PAIN 05/20/17 17:00 05/20/17 19:44 Docusate Sodium (Colace) 100 mg BID PO 05/20/17 21:00 05/20/17 21:00 Enoxaparin Sodium (Lovenox 40mg Syringe) 40 mg Q24H SQ 05/20/17 21:00 05/20/17 21:00 Amlodipine Besylate (Norvasc) 10 mg DAILY PO 05/21/17 09:00 05/21/17 12:38 DC 05/21/17 11:11 Aspirin (Children'S Aspirin) 81 mg DAILY PO 05/21/17 09:00 05/21/17 11:12 Carvedilol (Coreg) 6.25 mg BIDWMEALS PO 05/20/17 17:00 05/21/17 11:13 Clopidogrel Bisulfate (Plavix) 75 mg DAILY PO 05/21/17 09:00 05/21/17 11:11 Lisinopril (Prinivil) 20 mg BID PO 05/20/17 21:00 05/21/17 11:12 Simvastatin (Zocor) 20 mg QHS PO 05/20/17 21:00 05/20/17 21:01 Vitamin D (Vitamin D3) 1,000 unit DAILY PO 05/21/17 09:00 05/21/17 11:12 Paroxetine HCl (Paxil) 40 mg QHS PO 05/20/17 21:00 05/20/17 21:00 Potassium Chloride (Klor-Con) 10 meq DAILYWBKFT PO 05/21/17 08:00 05/21/17 11:13 Sodium Chloride 1,000 ml @ 100 mls/hr 1X ONCE IV 05/20/17 18:00 05/21/17 04:00 DC 05/20/17 19:38 Budesonide (Pulmicort) 0.5 mg RTBID NEB 05/20/17 20:00 05/21/17 10:54 Albuterol/ Ipratropium (Duoneb) 3 ml RTQID NEB 05/20/17 20:00 05/21/17 10:54 Polyethylene Glycol (miraLAX PACKET) 17 gm BID PO 05/21/17 11:00 05/21/17 11:13 Pantoprazole Sodium (Protonix) 40 mg DAILYAC PO 05/21/17 11:30 05/21/17 11:10 Senna/Docusate Sodium (Senna Plus) 1 tab BID PO 05/21/17 11:00 05/21/17 11:00 Docusate Sodium (Colace) 100 mg BID PO 05/21/17 11:00 05/21/17 11:12 ALLERGIES ALLERGIES: Coded Allergies: sulfamethoxazole (Verified Allergy, Intermediate, VERTIGO, 07/25/15) trimethoprim (Verified Allergy, Intermediate, VERTIGO, 07/25/15) ROS Review of System 14 point ROS evaluated with pertinent positives noted per HPI PHYSICAL EXAM General: Alert, Oriented X3, Cooperative, No acute distress HEENT: Atraumatic, Mucous membr. moist/pink Lungs: Other (diminished bases) Heart: Regular rate (SR), Normal S1, Normal S2, Other (2/6 systolic murmur to LLS border ) Abdomen: Soft, Other (mild diffuse tenderness) Extremities: No cyanosis, Other (trace LE) Skin: No breakdown, No significant lesion Neuro: Normal speech, Sensation intact Psych/Mental Status: Mental status NL, Mood NL MUSCULOSKELETAL: Osteoarthritic changes both hands VITALS VITALS Vital Signs Date Time Temp Pulse Resp B/P (MAP) Pulse Ox O2 Delivery O2 Flow Rate FiO2 05/21/17 11:13 67 114/48 05/21/17 11:00 96.1 18 90 Room Air 96.1 LABS Lab: Laboratory Tests Test 05/20/17 15:05 05/21/17 04:35 Sodium Level 139 mmol/L (136-145) Potassium Level 4.2 mmol/L (3.5-5.1) Chloride Level 99 mmol/L (98-107) Carbon Dioxide Level 34 mmol/L (21-32) Anion Gap 6 (6-14) Blood Urea Nitrogen 14 mg/dL (7-20) Creatinine 0.8 mg/dL (0.6-1.0) Estimated GFR (Cockcroft-Gault) 67.5 BUN/Creatinine Ratio 18 (6-20) Glucose Level 149 mg/dL (70-99) Calcium Level 9.4 mg/dL (8.5-10.1) Total Bilirubin 0.5 mg/dL (0.2-1.0) Aspartate Amino Transf (AST/SGOT) 14 U/L (15-37) Alanine Aminotransferase (ALT/SGPT) 20 U/L (14-59) Alkaline Phosphatase 72 U/L (46-116) Troponin I Quantitative < 0.017 ng/mL (0.000-0.055) SS-Idd-E-Type Natriuretic Peptide 291 pg/mL (0-449) Total Protein 7.8 g/dL (6.4-8.2) Albumin 4.0 g/dL (3.4-5.0) Albumin/Globulin Ratio 1.1 (1.0-1.7) Lipase 138 U/L (73-393) Lactic Acid Level 1.3 mmol/L (0.4-2.0) ECHOCARDIOGRAM ECHOCARDIOGRAM <Conclusion> Technically difficult study. The left ventricle is normal size. Left ventricle systolic function is at the lower limit of normal to mildly impaired. The Ejection Fraction is 45-50%. There is mild concentric left ventricular hypertrophy. There is no significant aortic valvular stenosis. Doppler and Color Flow revealed no significant aortic regurgitation. Doppler and Color-flow revealed mild mitral regurgitation. Doppler and Color Flow revealed mild tricuspid regurgitation. The PA pressure was estimated at 26 mmHg. There is no evidence of significant pericardial effusion. DATE: 05/11/17 1645 HEART CATH HEART CATH Conclusion CORONARY ANGIOGRAPHY: LM is a short large caliber vessel with normal angiographic appearance LAD is a large caliber mildly ectatic vessel with a proximal to mid focal 50% stenosis. The remainder of the vessel has mild luminal irregularities. D1 is a moderate caliber vessel with mild 20% proximal stenosis. LCx is a moderate to large caliber non-dominant vessel with proximal 20% stenosis. OM1 is a moderate caliber vessel with mild luminal irregularities RCA is a large caliber dominant vessel with a mid diffuse 90% stenosis LEFT VENTRICULOGRAM: EF 20% Anterobasal - severe hypokinesis Anterolateral - severe hypokinesis [place] - severe hypokinesis Diaphragmatic - severe hypokinesis Posterobasal - severe hypokinesis 1. Normal biventricular filling pressures. 2. Low cardiac output. 3. Severe LV systolic dysfunction (Likely mixed in nature from ischemic and non- ischemic etiologies). The degree of her LV dysfunction seems slightly out of proportion to her CAD. 4. Two vessel coronary artery disease involving the LAD and RCA 5. Successful PCI of the mid RCA with implantation of a 4.0/22 BMS post-dilated with a 4.5 NC balloon. Recommendations ASA 81mg daily indefinitely Plavix 75mg daily for at least 6 weeks. Aggressive medical therapy for cardiomyopathy DATE: 07/27/15 1545 ASSESSMENT/PLAN ASSESSMENT/PLAN 1. Atypical CP 2. Persistent intermittent nausea 3. Chronic systolic heart failure with combined NICM/ICM: Recent TTE much better EF of 45-50%. Compensated 4. COPD 5. CAD: s/p PCI/BMS to RCA 07/2015 6. HTN: controlled. Possibly orthostatic initially in ED, none further after IV fluids in ED. 7. DM2/DPN 8. GERD Recommendations 1. MPI tomorrow, will premed with zofran 2. Continue with secondary prevention measures including DAPT. 3. No orthostasis, Discussed po hydration adequacy Problems: ADELA JUARES APRN May 21, 2017 15:36
[2017-05-21] MEDS: LUBIPROSTONE 8 MCG CAPSULE PO SCH (16:55)
[2017-05-21] MEDS: ENOXAPARIN 40 MG/0.4 ML SYRINGE. SQ SCH (20:37)
[2017-05-21] MEDS: PARoxetine 20 MG TABLET PO SCH (20:37)
[2017-05-21] MEDS: SIMVASTATIN 20 MG TABLET PO SCH (20:37)
[2017-05-21] MEDS: oxyCODONE IR 5 MG TABLET PO PRN (20:37)
[2017-05-22] MEDS: ONDANSETRON PF 4 MG/2 ML VIAL. IV PRN ×2 (01:38→16:34)
[2017-05-22 06:47] LABS: BASO % 1 % (0-3); EOS % 1 % (0-3); HEMATOCRIT 37.6 % (36.0-47.0); HEMOGLOBIN 12.3 g/dL (12.0-15.5); LYMPH # 1.7 x10^3/uL (1.0-4.8); LYMPH % 24 % (24-48); MEAN CORPUSCULAR HEMOGLOBIN 33 pg (25-35); MEAN CORPUSCULAR HGB CONC 33 g/dL (31-37); MEAN CORPUSCULAR VOLUME 99 fL (79-100); MONO % 7 % (0-9); NEUT % 68 % (31-73); PLATELET COUNT 238 x10^3/uL (140-400); RED BLOOD COUNT 3.79 x10^6/uL (3.50-5.40); RED CELL DISTRIBUTION WIDTH 13.8 % (11.5-14.5); WHITE BLOOD COUNT 7.2 x10^3/uL (4.0-11.0)
[2017-05-22 06:50] LABS: CALCIUM 8.8 mg/dL (8.5-10.1); CREATININE 0.7 mg/dL (0.6-1.0); GFR 78.8; POTASSIUM 4.2 mmol/L (3.5-5.1)
[2017-05-22] MEDS ORDERED: ONDANSETRON PF 4 MG/2 ML VIAL. IV ONE (07:30)
[2017-05-22] MEDS: LUBIPROSTONE 8 MCG CAPSULE PO SCH ×2 (08:00→16:34)
[2017-05-22] MEDS ORDERED: REGADENOSON 0.4 MG/5 ML DISP.SYRIN. IV ONE ×2 (08:00→08:56)
[2017-05-22] MEDS: IPRATRPIUM/ALBUTEROL 0.5/2.5MG 3 ML NEBU. NEB SCH ×4 (08:04→21:06)
[2017-05-22] MEDS: BUDESONIDE 0.5 MG/2 ML NEBU. NEB SCH ×2 (08:05→20:00)
[2017-05-22] MEDS: CLOPIDOGREL BISULFATE 75 MG TABLET PO SCH (09:00)
--- NOTE | 2017-05-22 10:17 | PDOC ---
ADELA JUARES SENIOR [employer] UI DEVELOPER 05/22/17 1017: CARDIO Progress Notes Date and Time Date of Service 05/22/2017 Time of Evaluation 1010 Subjective Subjective: No Chest Pain, No shortness of breath, No Palpitations, Other ( nausea last night) Vitals Vitals Vital Signs Date Time Temp Pulse Resp B/P (MAP) Pulse Ox O2 Delivery O2 Flow Rate FiO2 05/22/17 08:07 91 Room Air 05/21/17 23:00 97.7 70 18 118/68 (85) 97.7 Weight Weight [ ] Laboratory Labs Laboratory Tests Test 05/22/17 06:15 White Blood Count 7.2 x10^3/uL (4.0-11.0) Red Blood Count 3.79 x10^6/uL (3.50-5.40) Hemoglobin 12.3 g/dL (12.0-15.5) Hematocrit 37.6 % (36.0-47.0) Mean Corpuscular Volume 99 fL (79-100) Mean Corpuscular Hemoglobin 33 pg (25-35) Mean Corpuscular Hemoglobin Concent 33 g/dL (31-37) Red Cell Distribution Width 13.8 % (11.5-14.5) Platelet Count 238 x10^3/uL (140-400) Neutrophils (%) (Auto) 68 % (31-73) Lymphocytes (%) (Auto) 24 % (24-48) Monocytes (%) (Auto) 7 % (0-9) Eosinophils (%) (Auto) 1 % (0-3) Basophils (%) (Auto) 1 % (0-3) Neutrophils # (Auto) 4.9 x10^3uL (1.8-7.7) Lymphocytes # (Auto) 1.7 x10^3/uL (1.0-4.8) Monocytes # (Auto) 0.5 x10^3/uL (0.0-1.1) Eosinophils # (Auto) 0.1 x10^3/uL (0.0-0.7) Basophils # (Auto) 0.0 x10^3/uL (0.0-0.2) Sodium Level 140 mmol/L (136-145) Potassium Level 4.2 mmol/L (3.5-5.1) Chloride Level 103 mmol/L (98-107) Carbon Dioxide Level 34 mmol/L (21-32) Anion Gap 3 (6-14) Blood Urea Nitrogen 20 mg/dL (7-20) Creatinine 0.7 mg/dL (0.6-1.0) Estimated GFR (Cockcroft-Gault) 78.8 Glucose Level 114 mg/dL (70-99) Calcium Level 8.8 mg/dL (8.5-10.1) Physical Exam HEENT: Neck Supple W Full Motion Chest: Symmetric LUNGS: Other (basilar crackles) Heart: S1S2, RRR (SR) Abdomen: Soft N/T Extremities: No Calf Tenderness Neurology: alert, oriented, follow commands Assessment Assessment 1. Atypical CP: no recurrence overnight 2. Persistent intermittent nausea: another episode overnight: GI following 3. Chronic systolic heart failure with combined NICM/ICM: Recent TTE much better EF of 45-50%. Compensated 4. COPD 5. CAD: s/p PCI/BMS to RCA 07/2015 6. HTN: controlled. 7. DM2/DPN 8. GERD Recommendations 1. MPI completion today, further recommendation per result 2. Continue with secondary prevention measures including DAPT. SAMSON AMADOR MD 05/22/17 1710: CARDIO Progress Notes Plan Plan Patient seen and examined. Agree with above nurse practitioner note. No acute events overnight. Symptoms are unrelated to cardiac issues. Myocardial perfusion study does not reveal any ischemia. Supportive care. Pls call with questions. ADELA JUARES SENIOR [employer] DEVELOPER May 22, 2017 10:17 SAMSON AMADOR MD May 22, 2017 17:10
[2017-05-22 10:58] VITALS: BP 108/48
--- NOTE | 2017-05-22 12:17 | PDOC ---
PROGRESS NOTES Chief Complaint Chief Complaint 1. Recurrent nausea, abd pain, not clear etiology, GERD? gastritis? 2. Borderline diabetic per her report 3. Exposure to second hand smoke 4, HTN, CAD, CHF EF 40%, DM2, GERD , copd 5. HTN with hypotension, transient, dizziness chronic constipation plan: fu with GI, GES today, neg CT basically normal cont home meds, dc amlodipine, on coreg and lisinopril for HTN PTOT, recommend HH dvt, gi ppx stool softner dc prednisone MPI today as per card, doubt acute CAD tho History of Present Illness History of Present Illness ROS: no fever, chills, sob or chest pain no V in hosp, still c/o nausea cont diffuse moderate diffuse abd pain with tenderness, mainly at epigastric, CT abd neg GES neg MPI today Vitals Vitals Vital Signs Date Time Temp Pulse Resp B/P (MAP) Pulse Ox O2 Delivery O2 Flow Rate FiO2 05/22/17 11:50 91 Room Air 05/22/17 10:58 97.8 84 20 108/48 (68) 97.8 Physical Exam General: Alert, Oriented X3, Cooperative, No acute distress Heart: Regular rate (SR), Normal S1, Normal S2, Other (2/6 systolic murmur to LLS border ) Lungs: Clear Abdomen: Soft, Other (mild diffuse tenderness, mainly at epigastric area) Extremities: No cyanosis, Other (trace LE) Skin: No breakdown, No significant lesion Labs LABS Laboratory Tests Test 05/22/17 06:15 White Blood Count 7.2 x10^3/uL (4.0-11.0) Red Blood Count 3.79 x10^6/uL (3.50-5.40) Hemoglobin 12.3 g/dL (12.0-15.5) Hematocrit 37.6 % (36.0-47.0) Mean Corpuscular Volume 99 fL (79-100) Mean Corpuscular Hemoglobin 33 pg (25-35) Mean Corpuscular Hemoglobin Concent 33 g/dL (31-37) Red Cell Distribution Width 13.8 % (11.5-14.5) Platelet Count 238 x10^3/uL (140-400) Neutrophils (%) (Auto) 68 % (31-73) Lymphocytes (%) (Auto) 24 % (24-48) Monocytes (%) (Auto) 7 % (0-9) Eosinophils (%) (Auto) 1 % (0-3) Basophils (%) (Auto) 1 % (0-3) Neutrophils # (Auto) 4.9 x10^3uL (1.8-7.7) Lymphocytes # (Auto) 1.7 x10^3/uL (1.0-4.8) Monocytes # (Auto) 0.5 x10^3/uL (0.0-1.1) Eosinophils # (Auto) 0.1 x10^3/uL (0.0-0.7) Basophils # (Auto) 0.0 x10^3/uL (0.0-0.2) Sodium Level 140 mmol/L (136-145) Potassium Level 4.2 mmol/L (3.5-5.1) Chloride Level 103 mmol/L (98-107) Carbon Dioxide Level 34 mmol/L (21-32) Anion Gap 3 (6-14) Blood Urea Nitrogen 20 mg/dL (7-20) Creatinine 0.7 mg/dL (0.6-1.0) Estimated GFR (Cockcroft-Gault) 78.8 Glucose Level 114 mg/dL (70-99) Calcium Level 8.8 mg/dL (8.5-10.1) Assessment and Plan Assessmemt and Plan Problems Medical Problems: (1) Dizziness Status: Acute (2) Lactic acidosis Status: Acute Problems: Comment Review of Relevant I have reviewed the following items lasha (where applicable) has been applied. Labs Laboratory Tests Test 05/20/17 14:15 05/20/17 14:22 05/20/17 15:05 05/21/17 04:35 White Blood Count 10.7 x10^3/uL (4.0-11.0) Red Blood Count 4.49 x10^6/uL (3.50-5.40) Hemoglobin 14.7 g/dL (12.0-15.5) Hematocrit 44.1 % (36.0-47.0) Mean Corpuscular Volume 98 fL (79-100) Mean Corpuscular Hemoglobin 33 pg (25-35) Mean Corpuscular Hemoglobin Concent 33 g/dL (31-37) Red Cell Distribution Width 13.6 % (11.5-14.5) Platelet Count 336 x10^3/uL (140-400) Neutrophils (%) (Auto) 91 % (31-73) Lymphocytes (%) (Auto) 7 % (24-48) Monocytes (%) (Auto) 2 % (0-9) Eosinophils (%) (Auto) 0 % (0-3) Basophils (%) (Auto) 0 % (0-3) Neutrophils # (Auto) 9.7 x10^3uL (1.8-7.7) Lymphocytes # (Auto) 0.7 x10^3/uL (1.0-4.8) Monocytes # (Auto) 0.2 x10^3/uL (0.0-1.1) Eosinophils # (Auto) 0.0 x10^3/uL (0.0-0.7) Basophils # (Auto) 0.0 x10^3/uL (0.0-0.2) Segmented Neutrophils % 91 % (35-66) Lymphocytes % 8 % (24-48) Monocytes % 1 % (0-10) Platelet Estimate Adequate (ADEQUATE) Hemoglobin A1c 5.7 % (4.8-5.6) Lactic Acid Level 2.8 mmol/L (0.4-2.0) 1.3 mmol/L (0.4-2.0) Urine Collection Type Void Urine Color Yellow Urine Clarity Clear Urine pH 7.5 [address]rine [address] Circle 1.010 Urine Protein Negative mg/dL (NEG-TRACE) Urine Glucose (UA) Negative mg/dL (NEG) Urine Ketones (Stick) Negative mg/dL (NEG) Urine Blood Negative (NEG) Urine Nitrite Negative (NEG) Urine Bilirubin Negative (NEG) Urine Urobilinogen Dipstick 0.2 mg/dL (0.2 mg/dL) Urine Leukocyte Esterase Negative (NEG) Urine RBC 0 /HPF (0-2) Urine WBC 0 /HPF (0-4) Urine Squamous Epithelial Cells Few /LPF Urine Bacteria Few /HPF (0-FEW) Urine Hyaline Casts Occasional /HPF Sodium Level 139 mmol/L (136-145) Potassium Level 4.2 mmol/L (3.5-5.1) Chloride Level 99 mmol/L (98-107) Carbon Dioxide Level 34 mmol/L (21-32) Anion Gap 6 (6-14) Blood Urea Nitrogen 14 mg/dL (7-20) Creatinine 0.8 mg/dL (0.6-1.0) Estimated GFR (Cockcroft-Gault) 67.5 BUN/Creatinine Ratio 18 (6-20) Glucose Level 149 mg/dL (70-99) Calcium Level 9.4 mg/dL (8.5-10.1) Total Bilirubin 0.5 mg/dL (0.2-1.0) Aspartate Amino Transf (AST/SGOT) 14 U/L (15-37) Alanine Aminotransferase (ALT/SGPT) 20 U/L (14-59) Alkaline Phosphatase 72 U/L (46-116) Troponin I Quantitative < 0.017 ng/mL (0.000-0.055) < 0.017 ng/mL (0.000-0.055) RB-Jog-M-Type Natriuretic Peptide 291 pg/mL (0-449) Total Protein 7.8 g/dL (6.4-8.2) Albumin 4.0 g/dL (3.4-5.0) Albumin/Globulin Ratio 1.1 (1.0-1.7) Lipase 138 U/L (73-393) Test 05/22/17 06:15 White Blood Count 7.2 x10^3/uL (4.0-11.0) Red Blood Count 3.79 x10^6/uL (3.50-5.40) Hemoglobin 12.3 g/dL (12.0-15.5) Hematocrit 37.6 % (36.0-47.0) Mean Corpuscular Volume 99 fL (79-100) Mean Corpuscular Hemoglobin 33 pg (25-35) Mean Corpuscular Hemoglobin Concent 33 g/dL (31-37) Red Cell Distribution Width 13.8 % (11.5-14.5) Platelet Count 238 x10^3/uL (140-400) Neutrophils (%) (Auto) 68 % (31-73) Lymphocytes (%) (Auto) 24 % (24-48) Monocytes (%) (Auto) 7 % (0-9) Eosinophils (%) (Auto) 1 % (0-3) Basophils (%) (Auto) 1 % (0-3) Neutrophils # (Auto) 4.9 x10^3uL (1.8-7.7) Lymphocytes # (Auto) 1.7 x10^3/uL (1.0-4.8) Monocytes # (Auto) 0.5 x10^3/uL (0.0-1.1) Eosinophils # (Auto) 0.1 x10^3/uL (0.0-0.7) Basophils # (Auto) 0.0 x10^3/uL (0.0-0.2) Sodium Level 140 mmol/L (136-145) Potassium Level 4.2 mmol/L (3.5-5.1) Chloride Level 103 mmol/L (98-107) Carbon Dioxide Level 34 mmol/L (21-32) Anion Gap 3 (6-14) Blood Urea Nitrogen 20 mg/dL (7-20) Creatinine 0.7 mg/dL (0.6-1.0) Estimated GFR (Cockcroft-Gault) 78.8 Glucose Level 114 mg/dL (70-99) Calcium Level 8.8 mg/dL (8.5-10.1) Laboratory Tests Test 05/22/17 06:15 White Blood Count 7.2 x10^3/uL (4.0-11.0) Red Blood Count 3.79 x10^6/uL (3.50-5.40) Hemoglobin 12.3 g/dL (12.0-15.5) Hematocrit 37.6 % (36.0-47.0) Mean Corpuscular Volume 99 fL (79-100) Mean Corpuscular Hemoglobin 33 pg (25-35) Mean Corpuscular Hemoglobin Concent 33 g/dL (31-37) Red Cell Distribution Width 13.8 % (11.5-14.5) Platelet Count 238 x10^3/uL (140-400) Neutrophils (%) (Auto) 68 % (31-73) Lymphocytes (%) (Auto) 24 % (24-48) Monocytes (%) (Auto) 7 % (0-9) Eosinophils (%) (Auto) 1 % (0-3) Basophils (%) (Auto) 1 % (0-3) Neutrophils # (Auto) 4.9 x10^3uL (1.8-7.7) Lymphocytes # (Auto) 1.7 x10^3/uL (1.0-4.8) Monocytes # (Auto) 0.5 x10^3/uL (0.0-1.1) Eosinophils # (Auto) 0.1 x10^3/uL (0.0-0.7) Basophils # (Auto) 0.0 x10^3/uL (0.0-0.2) Sodium Level 140 mmol/L (136-145) Potassium Level 4.2 mmol/L (3.5-5.1) Chloride Level 103 mmol/L (98-107) Carbon Dioxide Level 34 mmol/L (21-32) Anion Gap 3 (6-14) Blood Urea Nitrogen 20 mg/dL (7-20) Creatinine 0.7 mg/dL (0.6-1.0) Estimated GFR (Cockcroft-Gault) 78.8 Glucose Level 114 mg/dL (70-99) Calcium Level 8.8 mg/dL (8.5-10.1) Medications Current Medications Ondansetron HCl (Zofran) 4 mg 1X ONCE IV Last administered on 05/20/17 14:45; Start 05/20/17 at 14:30; Stop 05/20/17 at 14:31; Status DC Iohexol (Omnipaque 300 Mg/ml) 75 ml 1X ONCE IV Last administered on 05/20/17 16:11; Start 05/20/17 at 14:45; Stop 05/20/17 at 14:46; Status DC Info (Do NOT chart on this entry -- for MONITORING) 1 each PRN DAILY PRN MC SEE COMMENTS; Start 05/20/17 at 14:45; Stop 05/22/17 at 14:44 Iohexol (Omnipaque 300 Mg/ml) 75 ml STK-MED ONCE .ROUTE ; Start 05/20/17 at 15:06 ; Stop 05/20/17 at 15:07; Status DC Sodium Chloride 500 ml @ 500 mls/hr 1X ONCE IV Last administered on 05/20/17 15:52; Start 05/20/17 at 15:45; Stop 05/20/17 at 16:44; Status DC Ondansetron HCl (Zofran) 4 mg PRN Q6HRS PRN IV NAUSEA/VOMITING Last administered on 05/22/17 01:38; Start 05/20/17 at 17:00 Prochlorperazine Edisylate (Compazine) 10 mg PRN Q6HRS PRN IV NAUSEA/VOMITING; Start 05/20/17 at 17:00 Prochlorperazine (Compazine) 25 mg PRN Q12HR PRN NM NAUSEA/VOMITING; Start 05/20 at 17:00 Al Hydroxide/Mg Hydroxide (Mylanta Plus Xs) 30 ml PRN Q3HRS PRN PO HEARTBURN / GAS; Start 05/20/17 at 17:00 Calcium Carbonate/ Glycine (Tums) 500 mg PRN Q3HRS PRN PO UPSET STOMACH; Start 05/20/17 at 17:00 Zolpidem Tartrate (Ambien) 5 mg PRN QHS PRN PO INSOMNIA, MAY REPEAT IN 1HR; Start 05/20/17 at 17:00 Oxycodone HCl (Roxicodone) 5 mg PRN Q3HRS PRN PO BREAKTHROUGH PAIN Last administered on 05/21/17 20:37; Start 05/20/17 at 17:00 Morphine Sulfate 2 mg PRN Q2HR PRN IV PAIN; Start 05/20/17 at 17:00 Ketorolac Tromethamine (Toradol) 15 mg PRN Q6HRS PRN IV PAIN; Start 05/20/17 at 17:00; Stop 05/25/17 at 16:59 Acetaminophen (Tylenol) 650 mg PRN Q6HRS PRN PO Headaches, Temp > 101.5F Last administered on 05/21/17 23:14; Start 05/20/17 at 17:00 Ibuprofen (Motrin) 400 mg PRN Q6HRS PRN PO MILD PAIN; Start 05/20/17 at 17:00; Stop 05/21/17 at 09:59; Status DC Docusate Sodium (Colace) 100 mg BID PO Last administered on 05/21/17 20:37; Start 05/20/17 at 21:00 Magnesium Hydroxide (Milk Of Magnesia) 2,400 mg PRN Q12HR PRN PO CONSTIPATION; Start 05/20/17 at 17:00 Lactulose 20 gm PRN Q12HR PRN PO CONSTIPATION; Start 05/20/17 at 17:00 Bisacodyl (Dulcolax Supp) 10 mg PRN DAILY PRN NM CONSTIPATION; Start 05/20/17 at 17:00 Enoxaparin Sodium (Lovenox 40mg Syringe) 40 mg Q24H SQ Last administered on 05/21 20:37; Start 05/20/17 at 21:00 Alprazolam (Xanax) 0.5 mg PRN Q8HRS PRN PO ANXIETY / AGITATION; Start 05/20/17 at 17:00 Amlodipine Besylate (Norvasc) 10 mg DAILY PO Last administered on 05/21/17 11: 11; Start 05/21/17 at 09:00; Stop 05/21/17 at 12:38; Status DC Aspirin (Children'S Aspirin) 81 mg DAILY PO Last administered on 05/21/17 11:12 ; Start 05/21/17 at 09:00 Carvedilol (Coreg) 6.25 mg BIDWMEALS PO Last administered on 05/21/17 16:56; Start 05/20/17 at 17:00 Clopidogrel Bisulfate (Plavix) 75 mg DAILY PO Last administered on 05/21/17 11: 11; Start 05/21/17 at 09:00 Furosemide (Lasix) 20 mg PRN DAILY PRN PO leg swelling; Start 05/20/17 at 17:00 Lisinopril (Prinivil) 20 mg BID PO Last administered on 05/21/17 11:12; Start 05/20/17 at 21:00 Ondansetron HCl (Zofran Odt) 4 mg PRN TID PRN PO NAUSEA/VOMITING; Start at 17:00 Prednisone (Prednisone) 10 mg DAILY PO ; Start 05/21/17 at 09:00; Stop 05/21/17 at 09:59; Status DC Simvastatin (Zocor) 20 mg QHS PO Last administered on 05/21/17 20:37; Start 05/20/17 at 21:00 Vitamin D (Vitamin D3) 1,000 unit DAILY PO Last administered on 05/21/17 11:12 ; Start 05/21/17 at 09:00 Non-Formulary Medication 1 inh BID IH ; Start 05/20/17 at 21:00; Stop 05/20/17 at 21:00; Status DC Non-Formulary Medication 2 inh QID IH ; Start 05/20/17 at 17:00; Stop 05/20/17 at 18:26; Status DC Non-Formulary Medication 2 inh QID IH ; Start 05/20/17 at 17:00; Stop 05/20/17 at 18:10; Status DC Paroxetine HCl (Paxil) 40 mg QHS PO Last administered on 05/21/17 20:37; Start 05/20/17 at 21:00 Potassium Chloride (Klor-Con) 10 meq DAILYWBKFT PO Last administered on 11:13; Start 05/21/17 at 08:00 Clonidine HCl (Catapres) 0.1 mg PRN Q1HR PRN PO 150/100; Start 05/20/17 at 17:30 ; Stop 05/21/17 at 09:59; Status DC Sodium Chloride 1,000 ml @ 100 mls/hr 1X ONCE IV Last administered on 19:38; Start 05/20/17 at 18:00; Stop 05/21/17 at 04:00; Status DC Budesonide (Pulmicort) 0.5 mg RTBID NEB Last administered on 05/22/17 08:05; Start 05/20/17 at 20:00 Albuterol/ Ipratropium (Duoneb) 3 ml RTQID NEB Last administered on 05/22/17 11 :49; Start 05/20/17 at 20:00 Pneumococcal Polyvalent Vaccine (Do NOT chart on this placeholder) 1 each 1X ONCE MC ; Start 05/20/17 at 20:45; Stop 05/20/17 at 20:46; Status UNV Polyethylene Glycol (miraLAX PACKET) 17 gm BID PO Last administered on 20:36; Start 05/21/17 at 11:00 Pantoprazole Sodium (Protonix) 40 mg DAILYAC PO Last administered on 05/21/17 11:10; Start 05/21/17 at 11:30 Senna/Docusate Sodium (Senna Plus) 1 tab BID PO Last administered on 05/21/17 20:36; Start 05/21/17 at 11:00 Docusate Sodium (Colace) 100 mg BID PO Last administered on 05/21/17 11:12; Start 05/21/17 at 11:00; Stop 05/21/17 at 14:44; Status DC Magnesium Hydroxide (Milk Of Magnesia) 2,400 mg PRN Q12HR PRN PO CONSTIPATION; Start 05/21/17 at 10:00; Stop 05/21/17 at 12:38; Status DC Hydralazine HCl (Apresoline) 10 mg PRN Q4HRS PRN IVP ELEVATED BP, SEE COMMENTS ; Start 05/21/17 at 10:00 Lubiprostone (Amitiza) 8 mcg BIDWMEALS PO Last administered on 05/21/17 16:55; Start 05/21/17 at 17:00 Ondansetron HCl (Zofran) 4 mg 1X ONCE IV Last administered on 05/22/17 07:53; Start 05/22/17 at 07:30; Stop 05/22/17 at 07:31; Status DC Regadenoson (Lexiscan) 0.4 mg 1X ONCE IV Last administered on 05/22/17 09:45; Start 05/22/17 at 08:00; Stop 05/22/17 at 08:06; Status DC Regadenoson (Lexiscan) 0.4 mg STK-MED ONCE IV ; Start 05/22/17 at 08:56; Stop 05/22/17 at 08:57; Status DC Active Scripts Active Prednisone 10 Mg Tablet 10 Mg PO UD Take 3 tablets by mouth daily for 2 days, then 2 tabs daily for 4 days, then 1 tab daily for 4 days Zofran Odt (Ondansetron) 4 Mg Tab.rapdis 4 Mg PO Q6-8HRS PRN 5 Days Reported Amlodipine Besylate 10 Mg Tablet 10 Mg PO DAILY Furosemide 20 Mg Tablet 1 Tab PO PRN PRN Vitamin D (Cholecalciferol (Vitamin D3)) 1,000 Unit Capsule 1 Cap PO DAILY Potassium Chloride 10 Meq Capsule.er 10 Meq PO DAILY Advair 250-50 Diskus (Fluticasone/Salmeterol) 1 Each Disk.w.dev 1 Inh IH BID Lisinopril 20 Mg Tablet 20 Mg PO BID Coreg (Carvedilol) 6.25 Mg Tablet 6.25 Mg PO BIDWMEALS Plavix (Clopidogrel Bisulfate) 75 Mg Tablet 75 Mg PO DAILY Xanax (Alprazolam) 0.5 Mg Tablet 0.5 Mg PO PRN Q8HRS PRN Aspirin 81 Mg Tab.chew 81 Mg PO DAILY Combivent Respimat Inhal (Ipratropium/Albuterol Sulfate) 4 Gm Aer.w.adap 2 Inh IH QID Combivent Respimat Inhal (Ipratropium/Albuterol Sulfate) 4 Gm Aer.w.adap 2 Inh IH QID Simvastatin 20 Mg Tablet 1 Tab PO QHS Paroxetine Hcl 40 Mg Tablet 1 Tab PO HS Vitals/I & O Vital Sign - Last 24 Hours 05/21/17 05/21/17 05/21/17 05/21/17 15:00 15:40 15:40 16:26 Pulse 93 94 91 B/P (MAP) 132/60 (84) 113/68 (83) 117/61 (79) O2 Delivery Room Air 05/21/17 05/21/17 05/21/17 05/21/17 16:56 19:00 19:05 19:51 Temp 97.9 97.9 Pulse 94 66 Resp 19 B/P (MAP) 113/68 95/59 (71) Pulse Ox 97 O2 Delivery Room Air Room Air Room Air 05/21/17 05/21/17 05/21/17 05/21/17 20:35 20:37 21:30 23:00 Temp 97.7 97.7 Pulse 66 70 Resp 16 16 18 B/P (MAP) 95/59 118/68 (85) Pulse Ox 97 97 98 O2 Delivery Room Air Room Air Room Air 05/22/17 05/22/17 05/22/17 05/22/17 08:00 08:07 10:58 11:50 Temp 97.8 97.8 Pulse 84 Resp 20 B/P (MAP) 108/48 (68) Pulse Ox 91 92 91 O2 Delivery Room Air Room Air Room Air Room Air JOANNA SEXTON MD May 22, 2017 12:17
[2017-05-22] MEDS: POTASSIUM CHLORIDE 10 MEQ TABLET.ER. PO SCH (12:52)
[2017-05-22] MEDS: ASPIRIN CHEWABLE 81 MG TABLET. PO SCH (12:53)
[2017-05-22] MEDS: SENNOSIDES/DOCUSATE 8.6/50MG TABLET. PO SCH ×2 (12:53→20:42)
[2017-05-22] MEDS: DOCUSATE SODIUM 100 MG CAPSULE. PO SCH ×2 (12:53→20:42)
[2017-05-22] MEDS: CHOLECALCIFEROL (VITAMIN D3) 1,000 UNIT TABLET PO SCH (12:53)
[2017-05-22] MEDS: CARVEDILOL 6.25 MG TABLET. PO SCH ×2 (12:54→16:34)
[2017-05-22] MEDS: PANTOPRAZOLE 40 MG TABLET.DR. PO SCH (12:54)
[2017-05-22] MEDS: POLYETHYLENE GLYCOL 3350 17 GM PACKET. PO SCH ×2 (12:55→20:42)
[2017-05-22] MEDS: LISINOPRIL 20 MG TABLET PO SCH ×2 (12:55→20:41)
--- NOTE | 2017-05-22 13:05 | RAD ---
APPROVED REPORT Test Type: Pharmacological Stress Nurse/Tech: Sylvie Shook R.N. Test Indications: c/p Cardiac History: cardiac stent x1, htn,DM Medications: See Electronic Medical Record Medical History: See Electronic Medical Record Resting ECG: SR w/inverted T waves in leads AVR,V1,III AND AVF Resting Heart Rate: 72 bpm Resting Blood Pressure: 143/57mmHg Pretest Chest Pain: No chest pain Nurse/Tech Notes S1S2, lungs CTA Consent: The procedure was explained to the patient in lay terms. Informed consent was witnessed. Shar eout was entered into [facility]. History and Stress Test performed by ELIAS Cortes, KAUSHIK (R) (N) Pharm. Details Pharmacologic stress testing was performed using 0.4mg per 5ml of regadenoson given intravenously ove r 7-10 seconds. Stress Symptoms Nausea, headache POST EXERCISE Reason for Termination: Infusion complete Max HR: 92 bpm Max Blood Pressure: 131/50mmHg Blood Pressure response to exercise: Normal blood pressure response during stress. Heart Rate response to exercise: wnl Chest Pain: No. Arrhythmia: Yes. started having frequent pvc's at times ST Change: No. INTERPRETATION Stress EKG Conclusion: No evidence of stress induced EKG changes. Imaging Protocol IMAGE PROTOCOL: Rest Tc-99m/stress Tc-99m 1 day Rest: Stress: Viability: Radiopharm.Tc99m [id number] Sestamibi Dose10.6mCi 32.6mCi Img Date 05/22/2017 05/22/2017 Inj-Img [id number] 90min. Rest Admin Site:IV - Left HandAdministrator:RT Harley (R)(N) Stress Admin Site: IV-Left Upper ARmAdministrator: ELIAS Cortes, KAUSHIK (R)(N) STRESS DATA End Diast. Vol.100.0mlAv. Heart Rate75.0bpm End Syst. Vol.45.0mlCO Index BSA0.0L/min Myocardial Uwrn546.0gEject. Eyfivkgh73.0% Stress Rates Pk. Fill Rate0.65EDV/secLVtime Pk. Fill 160.27msec Pk. Empty Rate2.82ESV/secLVtime Pk. Cehsw391.55msec 1/3 Pk. Fill0.84EDV/sec Stress Scores Regional WT2.00Summed WT23.00 Regional WM1.00Summed WM4.00 LV Perfusion Moderate sized sized, basal to mid inferolateral wall fixed defect suggestive of prior infarct withou t any active ischemia. Wall Motion Grossly normal LV function. EF 55%. LV Perf. Quant 17 Seg. SSS10.00 17 Seg. SRS16.00 17 Seg. SDS0.00 Stress Defect Extent (% LAD)0.00Rest Defect Extent (% LAD)2.50Rev. Defect Extent (% LAD)0.00 Stress Defect Extent (% LCX) 72.50Rest Defect Extent (% LCX)65.00Rev. Defect Extent (% LCX)0.00 Stress Defect Extent (% RCA)7.80Rest Defect Extent (% RCA)24.40Rev. Defect Extent (% RCA)0.00 Stress Defect Extent (% ANTHONY)20.20Rest Defect Extent (% ANTHONY)27.00Rev. Defect Extent (% ANTHONY)0.00 Other Information Quality:Average Risk Assessment: Low-Moderate Risk Conclusion 1. No evidence of stress induced EKG changes. 2. Fixed inferolateral defect. 3. Normal EF at 55% 4. Low to moderate risk study Recommendations Medical therapy
--- NOTE | 2017-05-22 13:14 | PDOC ---
Subjective: Subjective: Back from stress test. Nausea all night, wants to try finishing lunch now. Room spins w/ nausea. No BM today. Still c/o urinary frequency. Son-in-law present, says we're not doing anything. Objective: Vital Signs: Vital Signs Date Time Temp Pulse Resp B/P (MAP) Pulse Ox O2 Delivery O2 Flow Rate FiO2 05/22/17 12:55 84 108/48 05/22/17 11:50 91 Room Air 05/22/17 10:58 97.8 20 97.8 Labs: Laboratory Tests Test 05/22/17 06:15 White Blood Count 7.2 x10^3/uL Red Blood Count 3.79 x10^6/uL Hemoglobin 12.3 g/dL Hematocrit 37.6 % Mean Corpuscular Volume 99 fL Mean Corpuscular Hemoglobin 33 pg Mean Corpuscular Hemoglobin Concent 33 g/dL Red Cell Distribution Width 13.8 % Platelet Count 238 x10^3/uL Neutrophils (%) (Auto) 68 % Lymphocytes (%) (Auto) 24 % Monocytes (%) (Auto) 7 % Eosinophils (%) (Auto) 1 % Basophils (%) (Auto) 1 % Neutrophils # (Auto) 4.9 x10^3uL Lymphocytes # (Auto) 1.7 x10^3/uL Monocytes # (Auto) 0.5 x10^3/uL Eosinophils # (Auto) 0.1 x10^3/uL Basophils # (Auto) 0.0 x10^3/uL Sodium Level 140 mmol/L Potassium Level 4.2 mmol/L Chloride Level 103 mmol/L Carbon Dioxide Level 34 mmol/L Anion Gap 3 Blood Urea Nitrogen 20 mg/dL Creatinine 0.7 mg/dL Estimated GFR (Cockcroft-Gault) 78.8 Glucose Level 114 mg/dL Calcium Level 8.8 mg/dL Imaging: MPI Conclusion 1. No evidence of stress induced EKG changes. 2. Fixed inferolateral defect. 3. Normal EF at 55% 4. Low to moderate risk study Recommendations Medical therapy PE: GEN: NAD, helped from WC to chair LUNGS: clear HEART: S1S2 ABD: S/ND/NT NEURO/PSYCH: A & O 3 A/P: Recurrent nausea/retching -h/o GERD, now on PPI, no previous EGD -GES normal -?vertigo symptoms (head CT w/ chronic findings) Chronic abd pain -colonoscopy 15-20 years ago Constipation -on Miralax and Amitiza CAD -stress test as above, medical therapy recommended Urinary frequency -defer to primary -- Continue PPI, Miralax, and Amitiza. Appreciate cardiology eval. Will ask neuro to see - ?vertigo HELGA SPARKS May 22, 2017 13:14
--- NOTE | 2017-05-22 15:13 | PDOC2 ---
NEUROLOGY CONSULT Date of Admission Date of Admission DATE: 05/22/17 TIME: 15:05 Reason for Consult Reason for Consult: Dizziness, nausea Referring Physician Referring Physician: Dr. Chioma Aldana PCP: Ms. Ruelas Source Source: Chart review, Patient History of Present Illness History of Present Illness The patient is an 89-year-old right-handed female admitted with nausea, vomiting , dizziness. She says that she has felt sick for 2 weeks. She denies dysarthria , dysphagia, diplopia, headache, tinnitus, but does wear bilateral hearing aids. 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 Past Medical History Cardiovascular: CAD, CHF, HTN, Hyperlipidemia Pulmonary: Bronchitis, COPD Psych: Anxiety Musculoskeletal: Osteoarthritis ENT: Other (bilateral hearing aids) Renal/: Chronic renal insuff, UTI, Urinary Incontinence Endocrine: Diabetes Past Surgical History Past Surgical History: Cholecystectomy, Cataract Removal, Hysterectomy, Other ( coronary stent, cardiac catheterization) Family History Family History: No pertinent hx (father of trauma, mother old age) Social History Social History , nonsmoker but was exposed to secondhand smoke, occasional alcohol Current Medications Current Medications Current Medications Ondansetron HCl (Zofran) 4 mg 1X ONCE IV Last administered on 05/20/17 14:45; Start 05/20/17 at 14:30; Stop 05/20/17 at 14:31; Status DC Iohexol (Omnipaque 300 Mg/ml) 75 ml 1X ONCE IV Last administered on 05/20/17 16:11; Start 05/20/17 at 14:45; Stop 05/20/17 at 14:46; Status DC Info (Do NOT chart on this entry -- for MONITORING) 1 each PRN DAILY PRN MC SEE COMMENTS; Start 05/20/17 at 14:45; Stop 05/22/17 at 14:44; Status DC Iohexol (Omnipaque 300 Mg/ml) 75 ml STK-MED ONCE .ROUTE ; Start 05/20/17 at 15:06 ; Stop 05/20/17 at 15:07; Status DC Sodium Chloride 500 ml @ 500 mls/hr 1X ONCE IV Last administered on 05/20/17 15:52; Start 05/20/17 at 15:45; Stop 05/20/17 at 16:44; Status DC Ondansetron HCl (Zofran) 4 mg PRN Q6HRS PRN IV NAUSEA/VOMITING Last administered on 05/22/17 01:38; Start 05/20/17 at 17:00 Prochlorperazine Edisylate (Compazine) 10 mg PRN Q6HRS PRN IV NAUSEA/VOMITING; Start 05/20/17 at 17:00 Prochlorperazine (Compazine) 25 mg PRN Q12HR PRN [place] NAUSEA/VOMITING; Start 05/20 at 17:00 Al Hydroxide/Mg Hydroxide (Mylanta Plus Xs) 30 ml PRN Q3HRS PRN PO HEARTBURN / GAS; Start 05/20/17 at 17:00 Calcium Carbonate/ Glycine (Tums) 500 mg PRN Q3HRS PRN PO UPSET STOMACH; Start 05/20/17 at 17:00 Zolpidem Tartrate (Ambien) 5 mg PRN QHS PRN PO INSOMNIA, MAY REPEAT IN 1HR; Start 05/20/17 at 17:00 Oxycodone HCl (Roxicodone) 5 mg PRN Q3HRS PRN PO BREAKTHROUGH PAIN Last administered on 05/21/17 20:37; Start 05/20/17 at 17:00 Morphine Sulfate 2 mg PRN Q2HR PRN IV PAIN; Start 05/20/17 at 17:00 Ketorolac Tromethamine (Toradol) 15 mg PRN Q6HRS PRN IV PAIN; Start 05/20/17 at 17:00; Stop 05/25/17 at 16:59 Acetaminophen (Tylenol) 650 mg PRN Q6HRS PRN PO Headaches, Temp > 101.5F Last administered on 05/21/17 23:14; Start 05/20/17 at 17:00 Ibuprofen (Motrin) 400 mg PRN Q6HRS PRN PO MILD PAIN; Start 05/20/17 at 17:00; Stop 05/21/17 at 09:59; Status DC Docusate Sodium (Colace) 100 mg BID PO Last administered on 05/22/17 12:53; Start 05/20/17 at 21:00 Magnesium Hydroxide (Milk Of Magnesia) 2,400 mg PRN Q12HR PRN PO CONSTIPATION; Start 05/20/17 at 17:00 Lactulose 20 gm PRN Q12HR PRN PO CONSTIPATION; Start 05/20/17 at 17:00 Bisacodyl (Dulcolax Supp) 10 mg PRN DAILY PRN [place] CONSTIPATION; Start 05/20/17 at 17:00 Enoxaparin Sodium (Lovenox 40mg Syringe) 40 mg Q24H SQ Last administered on 05/21 20:37; Start 05/20/17 at 21:00 Alprazolam (Xanax) 0.5 mg PRN Q8HRS PRN PO ANXIETY / AGITATION; Start 05/20/17 at 17:00 Amlodipine Besylate (Norvasc) 10 mg DAILY PO Last administered on 05/21/17 11: 11; Start 05/21/17 at 09:00; Stop 05/21/17 at 12:38; Status DC Aspirin (Children'S Aspirin) 81 mg DAILY PO Last administered on 05/22/17 12:53 ; Start 05/21/17 at 09:00 Carvedilol (Coreg) 6.25 mg BIDWMEALS PO Last administered on 05/22/17 12:54; Start 05/20/17 at 17:00 Clopidogrel Bisulfate (Plavix) 75 mg DAILY PO Last administered on 05/21/17 11: 11; Start 05/21/17 at 09:00 Furosemide (Lasix) 20 mg PRN DAILY PRN PO leg swelling; Start 05/20/17 at 17:00 Lisinopril (Prinivil) 20 mg BID PO Last administered on 05/22/17 12:55; Start 05/20/17 at 21:00 Ondansetron HCl (Zofran Odt) 4 mg PRN TID PRN PO NAUSEA/VOMITING; Start at 17:00 Prednisone (Prednisone) 10 mg DAILY PO ; Start 05/21/17 at 09:00; Stop 05/21/17 at 09:59; Status DC Simvastatin (Zocor) 20 mg QHS PO Last administered on 05/21/17 20:37; Start 05/20/17 at 21:00 Vitamin D (Vitamin D3) 1,000 unit DAILY PO Last administered on 05/22/17 12:53 ; Start 05/21/17 at 09:00 Non-Formulary Medication 1 inh BID IH ; Start 05/20/17 at 21:00; Stop 05/20/17 at 21:00; Status DC Non-Formulary Medication 2 inh QID IH ; Start 05/20/17 at 17:00; Stop 05/20/17 at 18:26; Status DC Non-Formulary Medication 2 inh QID IH ; Start 05/20/17 at 17:00; Stop 05/20/17 at 18:10; Status DC Paroxetine HCl (Paxil) 40 mg QHS PO Last administered on 05/21/17 20:37; Start 05/20/17 at 21:00 Potassium Chloride (Klor-Con) 10 meq DAILYWBKFT PO Last administered on 12:52; Start 05/21/17 at 08:00 Clonidine HCl (Catapres) 0.1 mg PRN Q1HR PRN PO 150/100; Start 05/20/17 at 17:30 ; Stop 05/21/17 at 09:59; Status DC Sodium Chloride 1,000 ml @ 100 mls/hr 1X ONCE IV Last administered on 19:38; Start 05/20/17 at 18:00; Stop 05/21/17 at 04:00; Status DC Budesonide (Pulmicort) 0.5 mg RTBID NEB Last administered on 05/22/17 08:05; Start 05/20/17 at 20:00 Albuterol/ Ipratropium (Duoneb) 3 ml RTQID NEB Last administered on 05/22/17 11 :49; Start 05/20/17 at 20:00 Pneumococcal Polyvalent Vaccine (Do NOT chart on this placeholder) 1 each 1X ONCE MC ; Start 05/20/17 at 20:45; Stop 05/20/17 at 20:46; Status UNV Polyethylene Glycol (miraLAX PACKET) 17 gm BID PO Last administered on 12:55; Start 05/21/17 at 11:00 Pantoprazole Sodium (Protonix) 40 mg DAILYAC PO Last administered on 05/22/17 12:54; Start 05/21/17 at 11:30 Senna/Docusate Sodium (Senna Plus) 1 tab BID PO Last administered on 05/22/17 12:53; Start 05/21/17 at 11:00 Docusate Sodium (Colace) 100 mg BID PO Last administered on 05/21/17 11:12; Start 05/21/17 at 11:00; Stop 05/21/17 at 14:44; Status DC Magnesium Hydroxide (Milk Of Magnesia) 2,400 mg PRN Q12HR PRN PO CONSTIPATION; Start 05/21/17 at 10:00; Stop 05/21/17 at 12:38; Status DC Hydralazine HCl (Apresoline) 10 mg PRN Q4HRS PRN IVP ELEVATED BP, SEE COMMENTS ; Start 05/21/17 at 10:00 Lubiprostone (Amitiza) 8 mcg BIDWMEALS PO Last administered on 05/21/17 16:55; Start 05/21/17 at 17:00 Ondansetron HCl (Zofran) 4 mg 1X ONCE IV Last administered on 05/22/17 07:53; Start 05/22/17 at 07:30; Stop 05/22/17 at 07:31; Status DC Regadenoson (Lexiscan) 0.4 mg 1X ONCE IV Last administered on 05/22/17 09:45; Start 05/22/17 at 08:00; Stop 05/22/17 at 08:06; Status DC Regadenoson (Lexiscan) 0.4 mg STK-MED ONCE IV ; Start 05/22/17 at 08:56; Stop 05/22/17 at 08:57; Status DC Active Scripts Active Prednisone 10 Mg Tablet 10 Mg PO UD Take 3 tablets by mouth daily for 2 days, then 2 tabs daily for 4 days, then 1 tab daily for 4 days Zofran Odt (Ondansetron) 4 Mg Tab.rapdis 4 Mg PO Q6-8HRS PRN 5 Days Reported Amlodipine Besylate 10 Mg Tablet 10 Mg PO DAILY Furosemide 20 Mg Tablet 1 Tab PO PRN PRN Vitamin D (Cholecalciferol (Vitamin D3)) 1,000 Unit Capsule 1 Cap PO DAILY Potassium Chloride 10 Meq Capsule.er 10 Meq PO DAILY Advair 250-50 Diskus (Fluticasone/Salmeterol) 1 Each Disk.w.dev 1 Inh IH BID Lisinopril 20 Mg Tablet 20 Mg PO BID Coreg (Carvedilol) 6.25 Mg Tablet 6.25 Mg PO BIDWMEALS Plavix (Clopidogrel Bisulfate) 75 Mg Tablet 75 Mg PO DAILY Xanax (Alprazolam) 0.5 Mg Tablet 0.5 Mg PO PRN Q8HRS PRN Aspirin 81 Mg Tab.chew 81 Mg PO DAILY Combivent Respimat Inhal (Ipratropium/Albuterol Sulfate) 4 Gm Aer.w.adap 2 Inh IH QID Combivent Respimat Inhal (Ipratropium/Albuterol Sulfate) 4 Gm Aer.w.adap 2 Inh IH QID Simvastatin 20 Mg Tablet 1 Tab PO QHS Paroxetine Hcl 40 Mg Tablet 1 Tab PO HS Allergies Allergies: Coded Allergies: sulfamethoxazole (Verified Allergy, Intermediate, VERTIGO, 07/25/15) trimethoprim (Verified Allergy, Intermediate, VERTIGO, 07/25/15) ROS Review of System Positive for dyspnea, dysuria, rare chest pain, otherwise negative 14-point review of systems Physical Exam Physical Examination PHYSICAL EXAMINATION: Vital signs: see above. General appearance is normal and in no acute distress. HEENT: Normocephalic and nontraumatic. Eyes, nose, ears, and throat are unremarkable. Neck is supple. No lymphadenopathy. No bruits are heard over the carotid artery. No crepitus. NEUROLOGICAL EXAMINATION: Mental Status Examination: Alert. Oriented to time, place, and person. Answers questions and follows commends. Pupils are equal round and reactive to light and accommodation. Funduscopic exam: No papilledema. Extraocular movements are intact, perhaps a few beats of nystagmus on rightward gaze, within physiologic range. Visual field exam shows no defect on the direct confrontation. No motor or sensory deficits on the facial exam. Uvula in the midline and the soft palate elevated symmetrically. No deviation of the tongue to any direction. Gross hearing is normal. Shoulder shrug normal. Muscle tone is normal. Muscle strength is 5. Deep tendon reflexes are 2+ all around. Plantar reflex is with flexion response bilaterally. [id number] test performance is accurate. Alternative movements are accurate. Gait not tested, she has been using a walker. Sensory exam shows no deficits. No cerebellar signs are elicited. Vitals VITALS Vital Signs Date Time Temp Pulse Resp B/P (MAP) Pulse Ox O2 Delivery O2 Flow Rate FiO2 05/22/17 12:55 84 108/48 05/22/17 11:50 91 Room Air 05/22/17 10:58 97.8 20 97.8 Labs Labs Laboratory Tests Test 05/21/17 04:35 05/22/17 06:15 Lactic Acid Level 1.3 mmol/L (0.4-2.0) Troponin I Quantitative < 0.017 ng/mL (0.000-0.055) Cortisol AM Sample 0.7 ug/dL (6.2-19.4) White Blood Count 7.2 x10^3/uL (4.0-11.0) Red Blood Count 3.79 x10^6/uL (3.50-5.40) Hemoglobin 12.3 g/dL (12.0-15.5) Hematocrit 37.6 % (36.0-47.0) Mean Corpuscular Volume 99 fL (79-100) Mean Corpuscular Hemoglobin 33 pg (25-35) Mean Corpuscular Hemoglobin Concent 33 g/dL (31-37) Red Cell Distribution Width 13.8 % (11.5-14.5) Platelet Count 238 x10^3/uL (140-400) Neutrophils (%) (Auto) 68 % (31-73) Lymphocytes (%) (Auto) 24 % (24-48) Monocytes (%) (Auto) 7 % (0-9) Eosinophils (%) (Auto) 1 % (0-3) Basophils (%) (Auto) 1 % (0-3) Neutrophils # (Auto) 4.9 x10^3uL (1.8-7.7) Lymphocytes # (Auto) 1.7 x10^3/uL (1.0-4.8) Monocytes # (Auto) 0.5 x10^3/uL (0.0-1.1) Eosinophils # (Auto) 0.1 x10^3/uL (0.0-0.7) Basophils # (Auto) 0.0 x10^3/uL (0.0-0.2) Sodium Level 140 mmol/L (136-145) Potassium Level 4.2 mmol/L (3.5-5.1) Chloride Level 103 mmol/L (98-107) Carbon Dioxide Level 34 mmol/L (21-32) Anion Gap 3 (6-14) Blood Urea Nitrogen 20 mg/dL (7-20) Creatinine 0.7 mg/dL (0.6-1.0) Estimated GFR (Cockcroft-Gault) 78.8 Glucose Level 114 mg/dL (70-99) Calcium Level 8.8 mg/dL (8.5-10.1) Laboratory Tests Test 05/22/17 06:15 White Blood Count 7.2 x10^3/uL (4.0-11.0) Red Blood Count 3.79 x10^6/uL (3.50-5.40) Hemoglobin 12.3 g/dL (12.0-15.5) Hematocrit 37.6 % (36.0-47.0) Mean Corpuscular Volume 99 fL (79-100) Mean Corpuscular Hemoglobin 33 pg (25-35) Mean Corpuscular Hemoglobin Concent 33 g/dL (31-37) Red Cell Distribution Width 13.8 % (11.5-14.5) Platelet Count 238 x10^3/uL (140-400) Neutrophils (%) (Auto) 68 % (31-73) Lymphocytes (%) (Auto) 24 % (24-48) Monocytes (%) (Auto) 7 % (0-9) Eosinophils (%) (Auto) 1 % (0-3) Basophils (%) (Auto) 1 % (0-3) Neutrophils # (Auto) 4.9 x10^3uL (1.8-7.7) Lymphocytes # (Auto) 1.7 x10^3/uL (1.0-4.8) Monocytes # (Auto) 0.5 x10^3/uL (0.0-1.1) Eosinophils # (Auto) 0.1 x10^3/uL (0.0-0.7) Basophils # (Auto) 0.0 x10^3/uL (0.0-0.2) Sodium Level 140 mmol/L (136-145) Potassium Level 4.2 mmol/L (3.5-5.1) Chloride Level 103 mmol/L (98-107) Carbon Dioxide Level 34 mmol/L (21-32) Anion Gap 3 (6-14) Blood Urea Nitrogen 20 mg/dL (7-20) Creatinine 0.7 mg/dL (0.6-1.0) Estimated GFR (Cockcroft-Gault) 78.8 Glucose Level 114 mg/dL (70-99) Calcium Level 8.8 mg/dL (8.5-10.1) Images Images CT head, 05/20: Noncontrast images of the head were obtained. Note is made of a previous examination 07/27/2015. The study is slightly compromised by motion. No acute or significant calvarial finding is seen. The visualized paranasal sinuses appear grossly normal. There is no subdural or epidural hematoma. There is a lucency in the left thalamus similar to the previous exam likely reflecting an old insult. There is no hemorrhage. An acute finding is not seen. A significant change relative to the previous exam is not apparent. IMPRESSION: Chronic changes. No acute intracranial finding is seen. No significant change Assessment/Plan Assessment/Plan Impression: Multifocal factorial dizziness, with combination of arthritis, possible vestibular dysfunction, cardiac disease, pulmonary disease, and anxiety, AND contribute. I find no strong evidence of vestibular dysfunction but it is possible. There is no evidence of central vertigo. Recommendations: Brain MRI Trial of scheduled meclizine Consider outpatient vestibular evaluation. Continue physical and occupational therapy. Thank you for letting me help with the patient's care. CHIDI BURGESS MD May 22, 2017 15:13
[2017-05-22] MEDS ORDERED: LUBIPROSTONE 8 MCG CAPSULE PO ONE (16:20)
[2017-05-22] MEDS ORDERED: MECLIZINE HCL 12.5 MG TABLET. ONE ×3 (16:20→20:44)
[2017-05-22] MEDS: MECLIZINE HCL 12.5 MG TABLET. PO SCH ×2 (16:34→20:44)
[2017-05-22 19:10] VITALS: BP 112/50
[2017-05-22] MEDS: ALPRAZolam 0.5 MG TABLET PO PRN (20:41)
[2017-05-22] MEDS: ZOLPIDEM 5 MG TABLET. PO PRN (20:42)
[2017-05-22] MEDS: SIMVASTATIN 20 MG TABLET PO SCH (20:42)
[2017-05-22] MEDS: PARoxetine 20 MG TABLET PO SCH (20:42)
[2017-05-22] MEDS: ENOXAPARIN 40 MG/0.4 ML SYRINGE. SQ SCH (20:43)
[2017-05-22 23:00] VITALS: BP 106/55
[2017-05-23 07:00] VITALS: BP 163/97
[2017-05-23] MEDS: IPRATRPIUM/ALBUTEROL 0.5/2.5MG 3 ML NEBU. NEB SCH ×4 (07:29→20:30)
[2017-05-23] MEDS: BUDESONIDE 0.5 MG/2 ML NEBU. NEB SCH ×2 (07:29→20:30)
[2017-05-23] MEDS ORDERED: MECLIZINE HCL 12.5 MG TABLET. ONE ×3 (07:50→21:31)
[2017-05-23] MEDS ORDERED: LUBIPROSTONE 8 MCG CAPSULE PO ONE ×2 (07:51→16:43)
[2017-05-23] MEDS: CLOPIDOGREL BISULFATE 75 MG TABLET PO SCH (08:21)
[2017-05-23] MEDS: DOCUSATE SODIUM 100 MG CAPSULE. PO SCH ×2 (08:21→21:00)
[2017-05-23] MEDS: CHOLECALCIFEROL (VITAMIN D3) 1,000 UNIT TABLET PO SCH (08:22)
[2017-05-23] MEDS: PANTOPRAZOLE 40 MG TABLET.DR. PO SCH (08:22)
[2017-05-23] MEDS: POTASSIUM CHLORIDE 10 MEQ TABLET.ER. PO SCH (08:22)
[2017-05-23] MEDS: MECLIZINE HCL 12.5 MG TABLET. PO SCH ×3 (08:22→21:33)
[2017-05-23] MEDS: LUBIPROSTONE 8 MCG CAPSULE PO SCH ×2 (08:22→16:52)
[2017-05-23] MEDS: SENNOSIDES/DOCUSATE 8.6/50MG TABLET. PO SCH ×2 (08:22→21:00)
[2017-05-23] MEDS: ASPIRIN CHEWABLE 81 MG TABLET. PO SCH (08:22)
[2017-05-23] MEDS: CARVEDILOL 6.25 MG TABLET. PO SCH ×2 (08:23→16:51)
[2017-05-23] MEDS: LISINOPRIL 20 MG TABLET PO SCH ×2 (08:23→21:00)
[2017-05-23] MEDS: POLYETHYLENE GLYCOL 3350 17 GM PACKET. PO SCH ×2 (08:23→21:00)
[2017-05-23 08:40] LABS: BASO # 0.1 x10^3/uL (0.0-0.2); BASO % 1 % (0-3); EOS % 1 % (0-3); HEMATOCRIT 38.9 % (36.0-47.0); HEMOGLOBIN 12.7 g/dL (12.0-15.5); LYMPH # 1.8 x10^3/uL (1.0-4.8); LYMPH % 21 % (24-48); MEAN CORPUSCULAR HEMOGLOBIN 33 pg (25-35); MEAN CORPUSCULAR HGB CONC 33 g/dL (31-37); MEAN CORPUSCULAR VOLUME 100 fL (79-100); MONO % 6 % (0-9); NEUT % 71 % (31-73); PLATELET COUNT 252 x10^3/uL (140-400); RED BLOOD COUNT 3.89 x10^6/uL (3.50-5.40); RED CELL DISTRIBUTION WIDTH 14.1 % (11.5-14.5); WHITE BLOOD COUNT 8.4 x10^3/uL (4.0-11.0)
[2017-05-23 08:56] LABS: CALCIUM 8.9 mg/dL (8.5-10.1); CREATININE 0.8 mg/dL (0.6-1.0); GFR 67.5; POTASSIUM 4.1 mmol/L (3.5-5.1)
[2017-05-23 09:11] LABS: FREE T4 0.9 ng/dL (0.76-1.46)
--- NOTE | 2017-05-23 09:43 | PDOC ---
PROGRESS NOTES Assessment Problems Medical Problems: (1) Dizziness Status: Acute (2) Lactic acidosis Status: Acute Multifocal factorial dizziness, with combination of arthritis, possible vestibular dysfunction, cardiac disease, pulmonary disease, and anxiety, can contribute. I find no strong evidence of vestibular dysfunction but it is possible. There is no evidence of central vertigo. She feels better with the meclizine. Plan She refuses brain MRI because of claustrophobia, willing to do it as an outpatient. This is a rather chronic problem so there is no contraindication to checking the MRI as an outpatient. Continue scheduled meclizine Outpatient vestibular evaluation. Continue physical and occupational therapy. Subjective Dizziness is better, still worried about her gastroenterological symptoms Objective Vital Signs Date Time Temp Pulse Resp B/P (MAP) Pulse Ox O2 Delivery O2 Flow Rate FiO2 05/23/17 08:23 70 163/97 05/23/17 07:32 92 Room Air 05/23/17 07:00 98.0 18 98.0 PHYSICAL EXAM Alert. Oriented to time, place and person. PERRL. EOMI. CN: no focal findings. Muscle tone: normal. Muscle strength: 5/5 DTR: 2+ Plantar reflex: flexor Gait: not examined in bed. Sensory exam: no abnormal findings. No cerebellar signs elicited. Review of Relevant I have reviewed the following items lasha (where applicable) has been applied. Labs Laboratory Tests Test 05/22/17 06:15 05/23/17 08:10 White Blood Count 7.2 x10^3/uL (4.0-11.0) 8.4 x10^3/uL (4.0-11.0) Red Blood Count 3.79 x10^6/uL (3.50-5.40) 3.89 x10^6/uL (3.50-5.40) Hemoglobin 12.3 g/dL (12.0-15.5) 12.7 g/dL (12.0-15.5) Hematocrit 37.6 % (36.0-47.0) 38.9 % (36.0-47.0) Mean Corpuscular Volume 99 fL (79-100) 100 fL (79-100) Mean Corpuscular Hemoglobin 33 pg (25-35) 33 pg (25-35) Mean Corpuscular Hemoglobin Concent 33 g/dL (31-37) 33 g/dL (31-37) Red Cell Distribution Width 13.8 % (11.5-14.5) 14.1 % (11.5-14.5) Platelet Count 238 x10^3/uL (140-400) 252 x10^3/uL (140-400) Neutrophils (%) (Auto) 68 % (31-73) 71 % (31-73) Lymphocytes (%) (Auto) 24 % (24-48) 21 % (24-48) Monocytes (%) (Auto) 7 % (0-9) 6 % (0-9) Eosinophils (%) (Auto) 1 % (0-3) 1 % (0-3) Basophils (%) (Auto) 1 % (0-3) 1 % (0-3) Neutrophils # (Auto) 4.9 x10^3uL (1.8-7.7) 6.0 x10^3uL (1.8-7.7) Lymphocytes # (Auto) 1.7 x10^3/uL (1.0-4.8) 1.8 x10^3/uL (1.0-4.8) Monocytes # (Auto) 0.5 x10^3/uL (0.0-1.1) 0.5 x10^3/uL (0.0-1.1) Eosinophils # (Auto) 0.1 x10^3/uL (0.0-0.7) 0.1 x10^3/uL (0.0-0.7) Basophils # (Auto) 0.0 x10^3/uL (0.0-0.2) 0.1 x10^3/uL (0.0-0.2) Sodium Level 140 mmol/L (136-145) 141 mmol/L (136-145) Potassium Level 4.2 mmol/L (3.5-5.1) 4.1 mmol/L (3.5-5.1) Chloride Level 103 mmol/L (98-107) 101 mmol/L (98-107) Carbon Dioxide Level 34 mmol/L (21-32) 36 mmol/L (21-32) Anion Gap 3 (6-14) 4 (6-14) Blood Urea Nitrogen 20 mg/dL (7-20) 20 mg/dL (7-20) Creatinine 0.7 mg/dL (0.6-1.0) 0.8 mg/dL (0.6-1.0) Estimated GFR (Cockcroft-Gault) 78.8 67.5 Glucose Level 114 mg/dL (70-99) 113 mg/dL (70-99) Calcium Level 8.8 mg/dL (8.5-10.1) 8.9 mg/dL (8.5-10.1) Thyroid Stimulating Hormone (TSH) 3.591 uIU/mL (0.358-3.74) Free Thyroxine 0.90 ng/dL (0.76-1.46) Laboratory Tests Test 05/23/17 08:10 White Blood Count 8.4 x10^3/uL (4.0-11.0) Red Blood Count 3.89 x10^6/uL (3.50-5.40) Hemoglobin 12.7 g/dL (12.0-15.5) Hematocrit 38.9 % (36.0-47.0) Mean Corpuscular Volume 100 fL (79-100) Mean Corpuscular Hemoglobin 33 pg (25-35) Mean Corpuscular Hemoglobin Concent 33 g/dL (31-37) Red Cell Distribution Width 14.1 % (11.5-14.5) Platelet Count 252 x10^3/uL (140-400) Neutrophils (%) (Auto) 71 % (31-73) Lymphocytes (%) (Auto) 21 % (24-48) Monocytes (%) (Auto) 6 % (0-9) Eosinophils (%) (Auto) 1 % (0-3) Basophils (%) (Auto) 1 % (0-3) Neutrophils # (Auto) 6.0 x10^3uL (1.8-7.7) Lymphocytes # (Auto) 1.8 x10^3/uL (1.0-4.8) Monocytes # (Auto) 0.5 x10^3/uL (0.0-1.1) Eosinophils # (Auto) 0.1 x10^3/uL (0.0-0.7) Basophils # (Auto) 0.1 x10^3/uL (0.0-0.2) Sodium Level 141 mmol/L (136-145) Potassium Level 4.1 mmol/L (3.5-5.1) Chloride Level 101 mmol/L (98-107) Carbon Dioxide Level 36 mmol/L (21-32) Anion Gap 4 (6-14) Blood Urea Nitrogen 20 mg/dL (7-20) Creatinine 0.8 mg/dL (0.6-1.0) Estimated GFR (Cockcroft-Gault) 67.5 Glucose Level 113 mg/dL (70-99) Calcium Level 8.9 mg/dL (8.5-10.1) Thyroid Stimulating Hormone (TSH) 3.591 uIU/mL (0.358-3.74) Free Thyroxine 0.90 ng/dL (0.76-1.46) Medications Current Medications Ondansetron HCl (Zofran) 4 mg 1X ONCE IV Last administered on 05/20/17 14:45; Start 05/20/17 at 14:30; Stop 05/20/17 at 14:31; Status DC Iohexol (Omnipaque 300 Mg/ml) 75 ml 1X ONCE IV Last administered on 05/20/17 16:11; Start 05/20/17 at 14:45; Stop 05/20/17 at 14:46; Status DC Info (Do NOT chart on this entry -- for MONITORING) 1 each PRN DAILY PRN MC SEE COMMENTS; Start 05/20/17 at 14:45; Stop 05/22/17 at 14:44; Status DC Iohexol (Omnipaque 300 Mg/ml) 75 ml STK-MED ONCE .ROUTE ; Start 05/20/17 at 15:06 ; Stop 05/20/17 at 15:07; Status DC Sodium Chloride 500 ml @ 500 mls/hr 1X ONCE IV Last administered on 05/20/17 15:52; Start 05/20/17 at 15:45; Stop 05/20/17 at 16:44; Status DC Ondansetron HCl (Zofran) 4 mg PRN Q6HRS PRN IV NAUSEA/VOMITING Last administered on 05/22/17 16:34; Start 05/20/17 at 17:00 Prochlorperazine Edisylate (Compazine) 10 mg PRN Q6HRS PRN IV NAUSEA/VOMITING Last administered on 05/22/17 20:41; Start 05/20/17 at 17:00 Prochlorperazine (Compazine) 25 mg PRN Q12HR PRN CA NAUSEA/VOMITING; Start 05/20 at 17:00 Al Hydroxide/Mg Hydroxide (Mylanta Plus Xs) 30 ml PRN Q3HRS PRN PO HEARTBURN / GAS; Start 05/20/17 at 17:00 Calcium Carbonate/ Glycine (Tums) 500 mg PRN Q3HRS PRN PO UPSET STOMACH; Start 05/20/17 at 17:00 Zolpidem Tartrate (Ambien) 5 mg PRN QHS PRN PO INSOMNIA, MAY REPEAT IN 1HR Last administered on 05/22/17 20:42; Start 05/20/17 at 17:00 Oxycodone HCl (Roxicodone) 5 mg PRN Q3HRS PRN PO BREAKTHROUGH PAIN Last administered on 05/21/17 20:37; Start 05/20/17 at 17:00 Morphine Sulfate 2 mg PRN Q2HR PRN IV PAIN; Start 05/20/17 at 17:00 Ketorolac Tromethamine (Toradol) 15 mg PRN Q6HRS PRN IV PAIN; Start 05/20/17 at 17:00; Stop 05/25/17 at 16:59 Acetaminophen (Tylenol) 650 mg PRN Q6HRS PRN PO Headaches, Temp > 101.5F Last administered on 05/21/17 23:14; Start 05/20/17 at 17:00 Ibuprofen (Motrin) 400 mg PRN Q6HRS PRN PO MILD PAIN; Start 05/20/17 at 17:00; Stop 05/21/17 at 09:59; Status DC Docusate Sodium (Colace) 100 mg BID PO Last administered on 05/23/17 08:21; Start 05/20/17 at 21:00 Magnesium Hydroxide (Milk Of Magnesia) 2,400 mg PRN Q12HR PRN PO CONSTIPATION; Start 05/20/17 at 17:00 Lactulose 20 gm PRN Q12HR PRN PO CONSTIPATION; Start 05/20/17 at 17:00 Bisacodyl (Dulcolax Supp) 10 mg PRN DAILY PRN CA CONSTIPATION; Start 05/20/17 at 17:00 Enoxaparin Sodium (Lovenox 40mg Syringe) 40 mg Q24H SQ Last administered on 05/22 20:43; Start 05/20/17 at 21:00 Alprazolam (Xanax) 0.5 mg PRN Q8HRS PRN PO ANXIETY / AGITATION Last administered on 05/22/17 20:41; Start 05/20/17 at 17:00 Amlodipine Besylate (Norvasc) 10 mg DAILY PO Last administered on 05/21/17 11: 11; Start 05/21/17 at 09:00; Stop 05/21/17 at 12:38; Status DC Aspirin (Children'S Aspirin) 81 mg DAILY PO Last administered on 05/23/17 08:22 ; Start 05/21/17 at 09:00 Carvedilol (Coreg) 6.25 mg BIDWMEALS PO Last administered on 05/23/17 08:23; Start 05/20/17 at 17:00 Clopidogrel Bisulfate (Plavix) 75 mg DAILY PO Last administered on 05/23/17 08: 21; Start 05/21/17 at 09:00 Furosemide (Lasix) 20 mg PRN DAILY PRN PO leg swelling; Start 05/20/17 at 17:00 Lisinopril (Prinivil) 20 mg BID PO Last administered on 05/23/17 08:23; Start 05/20/17 at 21:00 Ondansetron HCl (Zofran Odt) 4 mg PRN TID PRN PO NAUSEA/VOMITING; Start at 17:00 Prednisone (Prednisone) 10 mg DAILY PO ; Start 05/21/17 at 09:00; Stop 05/21/17 at 09:59; Status DC Simvastatin (Zocor) 20 mg QHS PO Last administered on 05/22/17 20:42; Start 05/20/17 at 21:00 Vitamin D (Vitamin D3) 1,000 unit DAILY PO Last administered on 05/23/17 08:22 ; Start 05/21/17 at 09:00 Non-Formulary Medication 1 inh BID IH ; Start 05/20/17 at 21:00; Stop 05/20/17 at 21:00; Status DC Non-Formulary Medication 2 inh QID IH ; Start 05/20/17 at 17:00; Stop 05/20/17 at 18:26; Status DC Non-Formulary Medication 2 inh QID IH ; Start 05/20/17 at 17:00; Stop 05/20/17 at 18:10; Status DC Paroxetine HCl (Paxil) 40 mg QHS PO Last administered on 05/22/17 20:42; Start 05/20/17 at 21:00 Potassium Chloride (Klor-Con) 10 meq DAILYWBKFT PO Last administered on 08:22; Start 05/21/17 at 08:00 Clonidine HCl (Catapres) 0.1 mg PRN Q1HR PRN PO 150/100; Start 05/20/17 at 17:30 ; Stop 05/21/17 at 09:59; Status DC Sodium Chloride 1,000 ml @ 100 mls/hr 1X ONCE IV Last administered on 19:38; Start 05/20/17 at 18:00; Stop 05/21/17 at 04:00; Status DC Budesonide (Pulmicort) 0.5 mg RTBID NEB Last administered on 05/23/17 07:29; Start 05/20/17 at 20:00 Albuterol/ Ipratropium (Duoneb) 3 ml RTQID NEB Last administered on 05/23/17 07 :29; Start 05/20/17 at 20:00 Pneumococcal Polyvalent Vaccine (Do NOT chart on this placeholder) 1 each 1X ONCE MC ; Start 05/20/17 at 20:45; Stop 05/20/17 at 20:46; Status UNV Polyethylene Glycol (miraLAX PACKET) 17 gm BID PO Last administered on 08:23; Start 05/21/17 at 11:00 Pantoprazole Sodium (Protonix) 40 mg DAILYAC PO Last administered on 05/23/17 08:22; Start 05/21/17 at 11:30 Senna/Docusate Sodium (Senna Plus) 1 tab BID PO Last administered on 05/23/17 08:22; Start 05/21/17 at 11:00 Docusate Sodium (Colace) 100 mg BID PO Last administered on 05/21/17 11:12; Start 05/21/17 at 11:00; Stop 05/21/17 at 14:44; Status DC Magnesium Hydroxide (Milk Of Magnesia) 2,400 mg PRN Q12HR PRN PO CONSTIPATION; Start 05/21/17 at 10:00; Stop 05/21/17 at 12:38; Status DC Hydralazine HCl (Apresoline) 10 mg PRN Q4HRS PRN IVP ELEVATED BP, SEE COMMENTS ; Start 05/21/17 at 10:00 Lubiprostone (Amitiza) 8 mcg BIDWMEALS PO Last administered on 05/23/17 08:22; Start 05/21/17 at 17:00 Ondansetron HCl (Zofran) 4 mg 1X ONCE IV Last administered on 05/22/17 07:53; Start 05/22/17 at 07:30; Stop 05/22/17 at 07:31; Status DC Regadenoson (Lexiscan) 0.4 mg 1X ONCE IV Last administered on 05/22/17 09:45; Start 05/22/17 at 08:00; Stop 05/22/17 at 08:06; Status DC Regadenoson (Lexiscan) 0.4 mg STK-MED ONCE IV ; Start 05/22/17 at 08:56; Stop 05/22/17 at 08:57; Status DC Meclizine HCl (Antivert) 12.5 mg TID PO Last administered on 05/23/17 08:22; Start 05/22/17 at 15:30 Meclizine HCl (Antivert) 12.5 mg STK-MED ONCE .ROUTE ; Start 05/22/17 at 16:20; Stop 05/22/17 at 16:27; Status DC Lubiprostone (Amitiza) 8 mcg STK-MED ONCE PO ; Start 05/22/17 at 16:20; Stop 05/22 at 16:27; Status DC Meclizine HCl (Antivert) 12.5 mg STK-MED ONCE .ROUTE ; Start 05/22/17 at 20:40; Stop 05/22/17 at 20:41; Status DC Meclizine HCl (Antivert) 12.5 mg STK-MED ONCE .ROUTE ; Start 05/22/17 at 20:44; Stop 05/22/17 at 21:14; Status DC Meclizine HCl (Antivert) 12.5 mg STK-MED ONCE .ROUTE ; Start 05/23/17 at 07:50; Stop 05/23/17 at 07:51; Status DC Lubiprostone (Amitiza) 8 mcg STK-MED ONCE PO ; Start 05/23/17 at 07:51; Stop 05/23 at 07:52; Status DC Active Scripts Active Prednisone 10 Mg Tablet 10 Mg PO UD Take 3 tablets by mouth daily for 2 days, then 2 tabs daily for 4 days, then 1 tab daily for 4 days Zofran Odt (Ondansetron) 4 Mg Tab.rapdis 4 Mg PO Q6-8HRS PRN 5 Days Reported Amlodipine Besylate 10 Mg Tablet 10 Mg PO DAILY Furosemide 20 Mg Tablet 1 Tab PO PRN PRN Vitamin D (Cholecalciferol (Vitamin D3)) 1,000 Unit Capsule 1 Cap PO DAILY Potassium Chloride 10 Meq Capsule.er 10 Meq PO DAILY Advair 250-50 Diskus (Fluticasone/Salmeterol) 1 Each Disk.w.dev 1 Inh IH BID Lisinopril 20 Mg Tablet 20 Mg PO BID Coreg (Carvedilol) 6.25 Mg Tablet 6.25 Mg PO BIDWMEALS Plavix (Clopidogrel Bisulfate) 75 Mg Tablet 75 Mg PO DAILY Xanax (Alprazolam) 0.5 Mg Tablet 0.5 Mg PO PRN Q8HRS PRN Aspirin 81 Mg Tab.chew 81 Mg PO DAILY Combivent Respimat Inhal (Ipratropium/Albuterol Sulfate) 4 Gm Aer.w.adap 2 Inh IH QID Combivent Respimat Inhal (Ipratropium/Albuterol Sulfate) 4 Gm Aer.w.adap 2 Inh IH QID Simvastatin 20 Mg Tablet 1 Tab PO QHS Paroxetine Hcl 40 Mg Tablet 1 Tab PO HS Vitals/I & O Vital Sign - Last 24 Hours 05/22/17 05/22/17 05/22/17 05/22/17 10:58 11:50 12:54 12:55 Temp 97.8 97.8 Pulse 84 84 84 Resp 20 B/P (MAP) 108/48 (68) 108/48 108/48 Pulse Ox 92 91 O2 Delivery Room Air Room Air 05/22/17 05/22/17 05/22/17 05/22/17 16:34 16:52 19:10 20:00 Temp 97.8 97.8 Pulse 84 73 Resp 20 B/P (MAP) 108/48 112/50 (70) Pulse Ox 92 O2 Delivery Room Air Room Air Room Air 05/22/17 05/22/17 05/22/17 05/23/17 20:41 21:06 23:00 07:00 Temp 98.0 98.0 98.0 98.0 Pulse 73 67 70 Resp 19 18 B/P (MAP) 112/50 106/55 (72) 163/97 (119) Pulse Ox 85 93 91 O2 Delivery Room Air Room Air Room Air 05/23/17 05/23/17 05/23/17 07:32 08:23 08:23 Pulse 70 70 B/P (MAP) 163/97 163/97 Pulse Ox 92 O2 Delivery Room Air CHIDI BURGESS MD May 23, 2017 09:43
--- NOTE | 2017-05-23 09:49 | PDOC ---
Subjective: Subjective: Had a better night last night, slept well w/o nausea or retching. Tells me the room is spinning, feels dizzy. Doesn't want to have brain MRI, thinks we should take her somewhere to have an open MRI. Passed a lot of gas and two small "balls" of stool. Has some left-sided discomfort. Ate all breakfast except for a couple bites of potatoes. Objective: Vital Signs: Vital Signs Date Time Temp Pulse Resp B/P (MAP) Pulse Ox O2 Delivery O2 Flow Rate FiO2 05/23/17 08:23 70 163/97 05/23/17 07:32 92 Room Air 05/23/17 07:00 98.0 18 98.0 Labs: Laboratory Tests Test 05/23/17 08:10 White Blood Count 8.4 x10^3/uL Red Blood Count 3.89 x10^6/uL Hemoglobin 12.7 g/dL Hematocrit 38.9 % Mean Corpuscular Volume 100 fL Mean Corpuscular Hemoglobin 33 pg Mean Corpuscular Hemoglobin Concent 33 g/dL Red Cell Distribution Width 14.1 % Platelet Count 252 x10^3/uL Neutrophils (%) (Auto) 71 % Lymphocytes (%) (Auto) 21 % Monocytes (%) (Auto) 6 % Eosinophils (%) (Auto) 1 % Basophils (%) (Auto) 1 % Neutrophils # (Auto) 6.0 x10^3uL Lymphocytes # (Auto) 1.8 x10^3/uL Monocytes # (Auto) 0.5 x10^3/uL Eosinophils # (Auto) 0.1 x10^3/uL Basophils # (Auto) 0.1 x10^3/uL Sodium Level 141 mmol/L Potassium Level 4.1 mmol/L Chloride Level 101 mmol/L Carbon Dioxide Level 36 mmol/L Anion Gap 4 Blood Urea Nitrogen 20 mg/dL Creatinine 0.8 mg/dL Estimated GFR (Cockcroft-Gault) 67.5 Glucose Level 113 mg/dL Calcium Level 8.9 mg/dL Thyroid Stimulating Hormone (TSH) 3.591 uIU/mL Free Thyroxine 0.90 ng/dL PE: GEN: NAD, up to chair LUNGS: clear HEART: S1S2 ABD: BS+, some left-sided discomfort NEURO/PSYCH: A & O 3 A/P: Nausea, dizziness -h/o GERD, now on PPI, no previous EGD -GES normal, CT unrevealing -neurology following, she refuses MRI unless it's "open," now on meclizine -CAD s/p stress test, medical therapy recommended -cortisol level low, recheck in process Chronic abd pain, constipation -colonoscopy 15-20 years ago -on Miralax BID + Amitiza 8mcg BID -- Await recheck of cortisol; if abnormal, will need workup for Brantley's (defer to primary). Defer outpt MRI to neuro/PCP. Continue same per GI; however, will increase Amitiza to 24mcg ---> also has MoM , lactulose, and Dulcolax supp ordered PRN, not administered. HELGA SPARKS May 23, 2017 09:49
[2017-05-23 11:56] VITALS: BP 92/57
--- NOTE | 2017-05-23 13:49 | PDOC ---
PROGRESS NOTES Chief Complaint Chief Complaint 1. Recurrent nausea, abd pain, not clear etiology, GERD? gastritis? 2. Borderline diabetic per her report 3. Exposure to second hand smoke 4, HTN, CAD, CHF EF 40%, DM2, GERD , copd 5. HTN with hypotension, transient, dizziness chronic constipation dizzyness plan: fu with GI, GES today, neg CT basically normal cont home meds, dc amlodipine, on coreg and lisinopril for HTN PTOT, recommend HH dvt, gi ppx stool softner, increase amitiza as per GI dc prednisone, cortisol low at 4am ,repeat tmr at 8am MPI neg neuro consulted, pt refused MRI hope dc tmr History of Present Illness History of Present Illness ROS: no fever, chills, sob or chest pain no V in hosp, still c/o nausea cont diffuse moderate diffuse abd pain with tenderness, mainly at epigastric, CT abd neg GES neg MPI neg c/o urinary frequency some dizzy yesterday, abd pain better today, but refused to go home today Vitals Vitals Vital Signs Date Time Temp Pulse Resp B/P (MAP) Pulse Ox O2 Delivery O2 Flow Rate FiO2 05/23/17 11:56 98.0 68 18 92/57 (69) 91 Room Air 98.0 Physical Exam General: Alert, Oriented X3, Cooperative, No acute distress Heart: Regular rate (SR), Normal S1, Normal S2, Other (2/6 systolic murmur to LLS border ) Lungs: Clear Abdomen: Soft, Other (mild diffuse tenderness, mainly at epigastric area) Extremities: No cyanosis, Other (trace LE) Skin: No breakdown, No significant lesion Labs LABS Laboratory Tests Test 05/23/17 08:10 White Blood Count 8.4 x10^3/uL (4.0-11.0) Red Blood Count 3.89 x10^6/uL (3.50-5.40) Hemoglobin 12.7 g/dL (12.0-15.5) Hematocrit 38.9 % (36.0-47.0) Mean Corpuscular Volume 100 fL (79-100) Mean Corpuscular Hemoglobin 33 pg (25-35) Mean Corpuscular Hemoglobin Concent 33 g/dL (31-37) Red Cell Distribution Width 14.1 % (11.5-14.5) Platelet Count 252 x10^3/uL (140-400) Neutrophils (%) (Auto) 71 % (31-73) Lymphocytes (%) (Auto) 21 % (24-48) Monocytes (%) (Auto) 6 % (0-9) Eosinophils (%) (Auto) 1 % (0-3) Basophils (%) (Auto) 1 % (0-3) Neutrophils # (Auto) 6.0 x10^3uL (1.8-7.7) Lymphocytes # (Auto) 1.8 x10^3/uL (1.0-4.8) Monocytes # (Auto) 0.5 x10^3/uL (0.0-1.1) Eosinophils # (Auto) 0.1 x10^3/uL (0.0-0.7) Basophils # (Auto) 0.1 x10^3/uL (0.0-0.2) Sodium Level 141 mmol/L (136-145) Potassium Level 4.1 mmol/L (3.5-5.1) Chloride Level 101 mmol/L (98-107) Carbon Dioxide Level 36 mmol/L (21-32) Anion Gap 4 (6-14) Blood Urea Nitrogen 20 mg/dL (7-20) Creatinine 0.8 mg/dL (0.6-1.0) Estimated GFR (Cockcroft-Gault) 67.5 Glucose Level 113 mg/dL (70-99) Calcium Level 8.9 mg/dL (8.5-10.1) Thyroid Stimulating Hormone (TSH) 3.591 uIU/mL (0.358-3.74) Free Thyroxine 0.90 ng/dL (0.76-1.46) Assessment and Plan Assessmemt and Plan Problems Medical Problems: (1) Dizziness Status: Acute (2) Lactic acidosis Status: Acute Problems: Comment Review of Relevant I have reviewed the following items lasha (where applicable) has been applied. Labs Laboratory Tests Test 05/22/17 06:15 05/23/17 08:10 White Blood Count 7.2 x10^3/uL (4.0-11.0) 8.4 x10^3/uL (4.0-11.0) Red Blood Count 3.79 x10^6/uL (3.50-5.40) 3.89 x10^6/uL (3.50-5.40) Hemoglobin 12.3 g/dL (12.0-15.5) 12.7 g/dL (12.0-15.5) Hematocrit 37.6 % (36.0-47.0) 38.9 % (36.0-47.0) Mean Corpuscular Volume 99 fL (79-100) 100 fL (79-100) Mean Corpuscular Hemoglobin 33 pg (25-35) 33 pg (25-35) Mean Corpuscular Hemoglobin Concent 33 g/dL (31-37) 33 g/dL (31-37) Red Cell Distribution Width 13.8 % (11.5-14.5) 14.1 % (11.5-14.5) Platelet Count 238 x10^3/uL (140-400) 252 x10^3/uL (140-400) Neutrophils (%) (Auto) 68 % (31-73) 71 % (31-73) Lymphocytes (%) (Auto) 24 % (24-48) 21 % (24-48) Monocytes (%) (Auto) 7 % (0-9) 6 % (0-9) Eosinophils (%) (Auto) 1 % (0-3) 1 % (0-3) Basophils (%) (Auto) 1 % (0-3) 1 % (0-3) Neutrophils # (Auto) 4.9 x10^3uL (1.8-7.7) 6.0 x10^3uL (1.8-7.7) Lymphocytes # (Auto) 1.7 x10^3/uL (1.0-4.8) 1.8 x10^3/uL (1.0-4.8) Monocytes # (Auto) 0.5 x10^3/uL (0.0-1.1) 0.5 x10^3/uL (0.0-1.1) Eosinophils # (Auto) 0.1 x10^3/uL (0.0-0.7) 0.1 x10^3/uL (0.0-0.7) Basophils # (Auto) 0.0 x10^3/uL (0.0-0.2) 0.1 x10^3/uL (0.0-0.2) Sodium Level 140 mmol/L (136-145) 141 mmol/L (136-145) Potassium Level 4.2 mmol/L (3.5-5.1) 4.1 mmol/L (3.5-5.1) Chloride Level 103 mmol/L (98-107) 101 mmol/L (98-107) Carbon Dioxide Level 34 mmol/L (21-32) 36 mmol/L (21-32) Anion Gap 3 (6-14) 4 (6-14) Blood Urea Nitrogen 20 mg/dL (7-20) 20 mg/dL (7-20) Creatinine 0.7 mg/dL (0.6-1.0) 0.8 mg/dL (0.6-1.0) Estimated GFR (Cockcroft-Gault) 78.8 67.5 Glucose Level 114 mg/dL (70-99) 113 mg/dL (70-99) Calcium Level 8.8 mg/dL (8.5-10.1) 8.9 mg/dL (8.5-10.1) Thyroid Stimulating Hormone (TSH) 3.591 uIU/mL (0.358-3.74) Free Thyroxine 0.90 ng/dL (0.76-1.46) Laboratory Tests Test 05/23/17 08:10 White Blood Count 8.4 x10^3/uL (4.0-11.0) Red Blood Count 3.89 x10^6/uL (3.50-5.40) Hemoglobin 12.7 g/dL (12.0-15.5) Hematocrit 38.9 % (36.0-47.0) Mean Corpuscular Volume 100 fL (79-100) Mean Corpuscular Hemoglobin 33 pg (25-35) Mean Corpuscular Hemoglobin Concent 33 g/dL (31-37) Red Cell Distribution Width 14.1 % (11.5-14.5) Platelet Count 252 x10^3/uL (140-400) Neutrophils (%) (Auto) 71 % (31-73) Lymphocytes (%) (Auto) 21 % (24-48) Monocytes (%) (Auto) 6 % (0-9) Eosinophils (%) (Auto) 1 % (0-3) Basophils (%) (Auto) 1 % (0-3) Neutrophils # (Auto) 6.0 x10^3uL (1.8-7.7) Lymphocytes # (Auto) 1.8 x10^3/uL (1.0-4.8) Monocytes # (Auto) 0.5 x10^3/uL (0.0-1.1) Eosinophils # (Auto) 0.1 x10^3/uL (0.0-0.7) Basophils # (Auto) 0.1 x10^3/uL (0.0-0.2) Sodium Level 141 mmol/L (136-145) Potassium Level 4.1 mmol/L (3.5-5.1) Chloride Level 101 mmol/L (98-107) Carbon Dioxide Level 36 mmol/L (21-32) Anion Gap 4 (6-14) Blood Urea Nitrogen 20 mg/dL (7-20) Creatinine 0.8 mg/dL (0.6-1.0) Estimated GFR (Cockcroft-Gault) 67.5 Glucose Level 113 mg/dL (70-99) Calcium Level 8.9 mg/dL (8.5-10.1) Thyroid Stimulating Hormone (TSH) 3.591 uIU/mL (0.358-3.74) Free Thyroxine 0.90 ng/dL (0.76-1.46) Medications Current Medications Ondansetron HCl (Zofran) 4 mg 1X ONCE IV Last administered on 05/20/17 14:45; Start 05/20/17 at 14:30; Stop 05/20/17 at 14:31; Status DC Iohexol (Omnipaque 300 Mg/ml) 75 ml 1X ONCE IV Last administered on 05/20/17 16:11; Start 05/20/17 at 14:45; Stop 05/20/17 at 14:46; Status DC Info (Do NOT chart on this entry -- for MONITORING) 1 each PRN DAILY PRN MC SEE COMMENTS; Start 05/20/17 at 14:45; Stop 05/22/17 at 14:44; Status DC Iohexol (Omnipaque 300 Mg/ml) 75 ml STK-MED ONCE .ROUTE ; Start 05/20/17 at 15:06 ; Stop 05/20/17 at 15:07; Status DC Sodium Chloride 500 ml @ 500 mls/hr 1X ONCE IV Last administered on 05/20/17 15:52; Start 05/20/17 at 15:45; Stop 05/20/17 at 16:44; Status DC Ondansetron HCl (Zofran) 4 mg PRN Q6HRS PRN IV NAUSEA/VOMITING Last administered on 05/22/17 16:34; Start 05/20/17 at 17:00 Prochlorperazine Edisylate (Compazine) 10 mg PRN Q6HRS PRN IV NAUSEA/VOMITING Last administered on 05/22/17 20:41; Start 05/20/17 at 17:00 Prochlorperazine (Compazine) 25 mg PRN Q12HR PRN MA NAUSEA/VOMITING; Start 05/20 at 17:00 Al Hydroxide/Mg Hydroxide (Mylanta Plus Xs) 30 ml PRN Q3HRS PRN PO HEARTBURN / GAS; Start 05/20/17 at 17:00 Calcium Carbonate/ Glycine (Tums) 500 mg PRN Q3HRS PRN PO UPSET STOMACH; Start 05/20/17 at 17:00 Zolpidem Tartrate (Ambien) 5 mg PRN QHS PRN PO INSOMNIA, MAY REPEAT IN 1HR Last administered on 05/22/17 20:42; Start 05/20/17 at 17:00 Oxycodone HCl (Roxicodone) 5 mg PRN Q3HRS PRN PO BREAKTHROUGH PAIN Last administered on 05/21/17 20:37; Start 05/20/17 at 17:00 Morphine Sulfate 2 mg PRN Q2HR PRN IV PAIN; Start 05/20/17 at 17:00 Ketorolac Tromethamine (Toradol) 15 mg PRN Q6HRS PRN IV PAIN; Start 05/20/17 at 17:00; Stop 05/25/17 at 16:59 Acetaminophen (Tylenol) 650 mg PRN Q6HRS PRN PO Headaches, Temp > 101.5F Last administered on 05/21/17 23:14; Start 05/20/17 at 17:00 Ibuprofen (Motrin) 400 mg PRN Q6HRS PRN PO MILD PAIN; Start 05/20/17 at 17:00; Stop 05/21/17 at 09:59; Status DC Docusate Sodium (Colace) 100 mg BID PO Last administered on 05/23/17 08:21; Start 05/20/17 at 21:00 Magnesium Hydroxide (Milk Of Magnesia) 2,400 mg PRN Q12HR PRN PO CONSTIPATION; Start 05/20/17 at 17:00 Lactulose 20 gm PRN Q12HR PRN PO CONSTIPATION Last administered on 05/23/17 12: 03; Start 05/20/17 at 17:00 Bisacodyl (Dulcolax Supp) 10 mg PRN DAILY PRN MA CONSTIPATION; Start 05/20/17 at 17:00 Enoxaparin Sodium (Lovenox 40mg Syringe) 40 mg Q24H SQ Last administered on 05/22 20:43; Start 05/20/17 at 21:00 Alprazolam (Xanax) 0.5 mg PRN Q8HRS PRN PO ANXIETY / AGITATION Last administered on 05/22/17 20:41; Start 05/20/17 at 17:00 Amlodipine Besylate (Norvasc) 10 mg DAILY PO Last administered on 05/21/17 11: 11; Start 05/21/17 at 09:00; Stop 05/21/17 at 12:38; Status DC Aspirin (Children'S Aspirin) 81 mg DAILY PO Last administered on 05/23/17 08:22 ; Start 05/21/17 at 09:00 Carvedilol (Coreg) 6.25 mg BIDWMEALS PO Last administered on 05/23/17 08:23; Start 05/20/17 at 17:00 Clopidogrel Bisulfate (Plavix) 75 mg DAILY PO Last administered on 05/23/17 08: 21; Start 05/21/17 at 09:00 Furosemide (Lasix) 20 mg PRN DAILY PRN PO leg swelling; Start 05/20/17 at 17:00 Lisinopril (Prinivil) 20 mg BID PO Last administered on 05/23/17 08:23; Start 05/20/17 at 21:00 Ondansetron HCl (Zofran Odt) 4 mg PRN TID PRN PO NAUSEA/VOMITING; Start at 17:00 Prednisone (Prednisone) 10 mg DAILY PO ; Start 05/21/17 at 09:00; Stop 05/21/17 at 09:59; Status DC Simvastatin (Zocor) 20 mg QHS PO Last administered on 05/22/17 20:42; Start 05/20/17 at 21:00 Vitamin D (Vitamin D3) 1,000 unit DAILY PO Last administered on 05/23/17 08:22 ; Start 05/21/17 at 09:00 Non-Formulary Medication 1 inh BID IH ; Start 05/20/17 at 21:00; Stop 05/20/17 at 21:00; Status DC Non-Formulary Medication 2 inh QID IH ; Start 05/20/17 at 17:00; Stop 05/20/17 at 18:26; Status DC Non-Formulary Medication 2 inh QID IH ; Start 05/20/17 at 17:00; Stop 05/20/17 at 18:10; Status DC Paroxetine HCl (Paxil) 40 mg QHS PO Last administered on 05/22/17 20:42; Start 05/20/17 at 21:00 Potassium Chloride (Klor-Con) 10 meq DAILYWBKFT PO Last administered on 08:22; Start 05/21/17 at 08:00 Clonidine HCl (Catapres) 0.1 mg PRN Q1HR PRN PO 150/100; Start 05/20/17 at 17:30 ; Stop 05/21/17 at 09:59; Status DC Sodium Chloride 1,000 ml @ 100 mls/hr 1X ONCE IV Last administered on 19:38; Start 05/20/17 at 18:00; Stop 05/21/17 at 04:00; Status DC Budesonide (Pulmicort) 0.5 mg RTBID NEB Last administered on 05/23/17 07:29; Start 05/20/17 at 20:00 Albuterol/ Ipratropium (Duoneb) 3 ml RTQID NEB Last administered on 05/23/17 10 :58; Start 05/20/17 at 20:00 Pneumococcal Polyvalent Vaccine (Do NOT chart on this placeholder) 1 each 1X ONCE MC ; Start 05/20/17 at 20:45; Stop 05/20/17 at 20:46; Status UNV Polyethylene Glycol (miraLAX PACKET) 17 gm BID PO Last administered on 08:23; Start 05/21/17 at 11:00 Pantoprazole Sodium (Protonix) 40 mg DAILYAC PO Last administered on 05/23/17 08:22; Start 05/21/17 at 11:30 Senna/Docusate Sodium (Senna Plus) 1 tab BID PO Last administered on 05/23/17 08:22; Start 05/21/17 at 11:00 Docusate Sodium (Colace) 100 mg BID PO Last administered on 05/21/17 11:12; Start 05/21/17 at 11:00; Stop 05/21/17 at 14:44; Status DC Magnesium Hydroxide (Milk Of Magnesia) 2,400 mg PRN Q12HR PRN PO CONSTIPATION; Start 05/21/17 at 10:00; Stop 05/21/17 at 12:38; Status DC Hydralazine HCl (Apresoline) 10 mg PRN Q4HRS PRN IVP ELEVATED BP, SEE COMMENTS ; Start 05/21/17 at 10:00 Lubiprostone (Amitiza) 8 mcg BIDWMEALS PO Last administered on 05/23/17 08:22; Start 05/21/17 at 17:00; Stop 05/23/17 at 09:47; Status DC Ondansetron HCl (Zofran) 4 mg 1X ONCE IV Last administered on 05/22/17 07:53; Start 05/22/17 at 07:30; Stop 05/22/17 at 07:31; Status DC Regadenoson (Lexiscan) 0.4 mg 1X ONCE IV Last administered on 05/22/17 09:45; Start 05/22/17 at 08:00; Stop 05/22/17 at 08:06; Status DC Regadenoson (Lexiscan) 0.4 mg STK-MED ONCE IV ; Start 05/22/17 at 08:56; Stop 05/22/17 at 08:57; Status DC Meclizine HCl (Antivert) 12.5 mg TID PO Last administered on 05/23/17 08:22; Start 05/22/17 at 15:30 Meclizine HCl (Antivert) 12.5 mg STK-MED ONCE .ROUTE ; Start 05/22/17 at 16:20; Stop 05/22/17 at 16:27; Status DC Lubiprostone (Amitiza) 8 mcg STK-MED ONCE PO ; Start 05/22/17 at 16:20; Stop 05/22 at 16:27; Status DC Meclizine HCl (Antivert) 12.5 mg STK-MED ONCE .ROUTE ; Start 05/22/17 at 20:40; Stop 05/22/17 at 20:41; Status DC Meclizine HCl (Antivert) 12.5 mg STK-MED ONCE .ROUTE ; Start 05/22/17 at 20:44; Stop 05/22/17 at 21:14; Status DC Meclizine HCl (Antivert) 12.5 mg STK-MED ONCE .ROUTE ; Start 05/23/17 at 07:50; Stop 05/23/17 at 07:51; Status DC Lubiprostone (Amitiza) 8 mcg STK-MED ONCE PO ; Start 05/23/17 at 07:51; Stop 05/23 at 07:52; Status DC Lubiprostone (Amitiza) 24 mcg BIDWMEALS PO ; Start 05/23/17 at 17:00 Active Scripts Active Prednisone 10 Mg Tablet 10 Mg PO UD Take 3 tablets by mouth daily for 2 days, then 2 tabs daily for 4 days, then 1 tab daily for 4 days Zofran Odt (Ondansetron) 4 Mg Tab.rapdis 4 Mg PO Q6-8HRS PRN 5 Days Reported Amlodipine Besylate 10 Mg Tablet 10 Mg PO DAILY Furosemide 20 Mg Tablet 1 Tab PO PRN PRN Vitamin D (Cholecalciferol (Vitamin D3)) 1,000 Unit Capsule 1 Cap PO DAILY Potassium Chloride 10 Meq Capsule.er 10 Meq PO DAILY Advair 250-50 Diskus (Fluticasone/Salmeterol) 1 Each Disk.w.dev 1 Inh IH BID Lisinopril 20 Mg Tablet 20 Mg PO BID Coreg (Carvedilol) 6.25 Mg Tablet 6.25 Mg PO BIDWMEALS Plavix (Clopidogrel Bisulfate) 75 Mg Tablet 75 Mg PO DAILY Xanax (Alprazolam) 0.5 Mg Tablet 0.5 Mg PO PRN Q8HRS PRN Aspirin 81 Mg Tab.chew 81 Mg PO DAILY Combivent Respimat Inhal (Ipratropium/Albuterol Sulfate) 4 Gm Aer.w.adap 2 Inh IH QID Combivent Respimat Inhal (Ipratropium/Albuterol Sulfate) 4 Gm Aer.w.adap 2 Inh IH QID Simvastatin 20 Mg Tablet 1 Tab PO QHS Paroxetine Hcl 40 Mg Tablet 1 Tab PO HS Vitals/I & O Vital Sign - Last 24 Hours 05/22/17 05/22/17 05/22/17 05/22/17 16:34 16:52 19:10 20:00 Temp 97.8 97.8 Pulse 84 73 Resp 20 B/P (MAP) 108/48 112/50 (70) Pulse Ox 92 O2 Delivery Room Air Room Air Room Air 05/22/17 05/22/17 05/22/17 05/23/17 20:41 21:06 23:00 07:00 Temp 98.0 98.0 98.0 98.0 Pulse 73 67 70 Resp 19 18 B/P (MAP) 112/50 106/55 (72) 163/97 (119) Pulse Ox 85 93 91 O2 Delivery Room Air Room Air Room Air 05/23/17 05/23/17 05/23/17 05/23/17 07:32 08:00 08:23 08:23 Pulse 70 70 B/P (MAP) 163/97 163/97 Pulse Ox 92 O2 Delivery Room Air Room Air 05/23/17 05/23/17 10:59 11:56 Temp 98.0 98.0 Pulse 68 Resp 18 B/P (MAP) 92/57 (69) Pulse Ox 92 91 O2 Delivery Room Air Room Air Intake and Output 05/23/17 05/23/17 05/24/17 14:59 22:59 06:59 Intake Total 300 ml Balance 300 ml JOANNA SEXTON MD May 23, 2017 13:49
[2017-05-23 15:00] VITALS: BP 108/59
[2017-05-23 19:00] VITALS: BP 93/40
[2017-05-23] MEDS: SIMVASTATIN 20 MG TABLET PO SCH (21:32)
[2017-05-23] MEDS: ALPRAZolam 0.5 MG TABLET PO PRN (21:33)
[2017-05-23] MEDS: PARoxetine 20 MG TABLET PO SCH (21:33)
[2017-05-23] MEDS: ZOLPIDEM 5 MG TABLET. PO PRN (21:33)
[2017-05-23] MEDS: ENOXAPARIN 40 MG/0.4 ML SYRINGE. SQ SCH (21:34)
[2017-05-23 23:00] VITALS: BP 129/63
[2017-05-24 03:00] VITALS: BP 129/68
[2017-05-24 07:00] VITALS: BP 146/87
[2017-05-24] MEDS ORDERED: MECLIZINE HCL 12.5 MG TABLET. ONE ×2 (08:00→15:13)
[2017-05-24] MEDS ORDERED: LUBIPROSTONE 8 MCG CAPSULE PO ONE (08:00)
[2017-05-24] MEDS: CLOPIDOGREL BISULFATE 75 MG TABLET PO SCH (08:04)
[2017-05-24] MEDS: LUBIPROSTONE 8 MCG CAPSULE PO SCH (08:05)
[2017-05-24] MEDS: CHOLECALCIFEROL (VITAMIN D3) 1,000 UNIT TABLET PO SCH (08:05)
[2017-05-24] MEDS: PANTOPRAZOLE 40 MG TABLET.DR. PO SCH (08:05)
[2017-05-24] MEDS: POTASSIUM CHLORIDE 10 MEQ TABLET.ER. PO SCH (08:05)
[2017-05-24] MEDS: ASPIRIN CHEWABLE 81 MG TABLET. PO SCH (08:06)
[2017-05-24] MEDS: CARVEDILOL 6.25 MG TABLET. PO SCH (08:06)
[2017-05-24] MEDS: MECLIZINE HCL 12.5 MG TABLET. PO SCH ×2 (08:06→14:00)
[2017-05-24] MEDS: DOCUSATE SODIUM 100 MG CAPSULE. PO SCH (08:07)
[2017-05-24] MEDS: SENNOSIDES/DOCUSATE 8.6/50MG TABLET. PO SCH (08:07)
[2017-05-24] MEDS: LISINOPRIL 20 MG TABLET PO SCH (08:07)
[2017-05-24] MEDS: POLYETHYLENE GLYCOL 3350 17 GM PACKET. PO SCH (08:07)
[2017-05-24] MEDS: IPRATRPIUM/ALBUTEROL 0.5/2.5MG 3 ML NEBU. NEB SCH ×2 (08:22→11:27)
[2017-05-24] MEDS: BUDESONIDE 0.5 MG/2 ML NEBU. NEB SCH (08:22)
[2017-05-24 11:00] VITALS: BP 128/62
[2017-05-24] MEDS ORDERED: POLY17PO3 PO (12:21)
[2017-05-24] MEDS ORDERED: DOCU-109 PO (12:21)
== END 2017-05-24 15:30 | disposition home health service (06) | DRG 392 ==
LOC: ER 13:39 → 5 SOUTH 17:08
PROVIDERS: ADMIT Internal Medicine; ATTEND Internal Medicine
DX: K29.70 Gastritis, unspecified, without bleeding (principal); E87.2 Acidosis; I95.9 Hypotension, unspecified; E11.22 Type 2 diabetes mellitus with diabetic chronic kidney disease; I13.0 Hypertensive heart and chronic kidney disease with heart failure and stage 1 through stage 4 chronic kidney disease, or unspecified chronic kidney disease; I50.22 Chronic systolic (congestive) heart failure; G80.1 Spastic diplegic cerebral palsy; K21.9 Gastro-esophageal reflux disease without esophagitis; I27.2 Other secondary pulmonary hypertension; J44.9 Chronic obstructive pulmonary disease, unspecified; E03.9 Hypothyroidism, unspecified; E78.00 Pure hypercholesterolemia, unspecified; E78.5 Hyperlipidemia, unspecified; F41.9 Anxiety disorder, unspecified; I25.10 Atherosclerotic heart disease of native coronary artery without angina pectoris; Z77.22 Contact with and (suspected) exposure to environmental tobacco smoke (acute) (chronic); G89.29 Other chronic pain; K44.9 Diaphragmatic hernia without obstruction or gangrene; K57.30 Diverticulosis of large intestine without perforation or abscess without bleeding; N18.9 Chronic kidney disease, unspecified; M19.90 Unspecified osteoarthritis, unspecified site; Z90.710 Acquired absence of both cervix and uterus; Z86.73 Personal history of transient ischemic attack (TIA), and cerebral infarction without residual deficits; Z82.49 Family history of ischemic heart disease and other diseases of the circulatory system; Z90.49 Acquired absence of other specified parts of digestive tract; Z95.5 Presence of coronary angioplasty implant and graft; Z98.49 Cataract extraction status, unspecified eye; Z87.440 Personal history of urinary (tract) infections; K59.09 Other constipation; R07.89 Other chest pain; I25.5 Ischemic cardiomyopathy; Z88.8 Allergy status to other drugs, medicaments and biological substances
CPT/HCPCS: 36415; 70450; 74177; 78264; 78452; 80048; 80053; 81001; 82533; 83036; 83605; 83690; 83880; 84439; 84443; 84484; 85007; 85025; 93005; 93017; 94640; 96361; 96374; 96375; 96376; A9500; A9541; J0780; J1650; J2405; J2785; J7030; J7040; J7620; J7626; J8597; Q9967; 97110; 97116; 97530; 97535; 99285-25